=== PATIENT | female | born 1940 | race Caucasian/White ===

== ENCOUNTER 2020-03-19 11:27 | Outpatient (CLI) | payer MEDICARE, SELFPAY ==
--- NOTE | ~2020-03-19 | XR_ITS ---
EXAMINATION: XR chest 2V DATE: 03/19/2020 12:06 INDICATION: Cough. TECHNIQUE: Frontal and lateral views of the chest were obtained. COMPARISON: Chest 2 views 09/27/2018 FINDINGS: There is mild scarring at right lung apex. No pleural effusion or pneumothorax. The heart s ize is normal. There is a chronic compression fracture in mid thoracic spine. IMPRESSION: 1. Mild scarring at right lung apex. Reviewed, dictated and finalized at location B.
== END 2020-03-19 11:28 | disposition home or self-care (01) ==
PROVIDERS: PCP Internal Medicine; Visit Provider Internal Medicine
DX: R05 Cough (principal)
CPT/HCPCS: 71046

== ENCOUNTER 2020-07-26 08:01 | Outpatient (CLI) | payer MEDICARE, SELFPAY ==
--- NOTE | ~2020-07-26 | MM_ITS ---
EXAMINATION: MM screening laura BI w vaughn HISTORY: Screening mammogram TECHNIQUE: Craniocaudal and mediolateral oblique 3-D tomosynthesis images were obtained and synthetic 2-D images were generated. CAD analysis was submitted and interpreted. COMPARISON: 07/24/2019, 07/23/2018, 07/18/2017 bilateral digital screening mammogram examinations BREAST PARENCHYMAL COMPOSITION: There are scattered areas of fibroglandular density. FINDINGS: There is no evidence of suspicious mass, calcification, or architectural distortion to sugg est malignancy in either breast. There has been no suspicious interval change. IMPRESSION: 1. No mammographic evidence of malignancy. 2. Recommend routine screening mammography in one year. BI-RADS Category 1: Negative Reviewed, dictated and finalized at location A. RNATIONAL FREIGHT FORWARDER
== END 2020-07-26 08:02 | disposition home or self-care (01) ==
LOC: ANHIMG 08:05
PROVIDERS: PCP Internal Medicine; Visit Provider Internal Medicine
DX: Z12.31 Encounter for screening mammogram for malignant neoplasm of breast (principal)
CPT/HCPCS: 77063; 77067

== ENCOUNTER 2020-07-28 08:29 | Emergency (ER) | payer MEDICARE, SELFPAY ==
[2020-07-28] VITALS (21 sets, daily range): BP systolic 101–149; BP diastolic 37–84; PULSE 81–99; RESP 12–33; TEMP 36.9; O2SAT 78–100
--- NOTE | ~2020-07-28 | XR_ITS ---
EXAMINATION: XR shoulder RT min 2V EXAM DATE: 07/28/2020 09:14 INDICATION: Initial encounter following injury, with pain of the right shoulder. TECHNIQUE: Frontal, oblique, Y projections of the right shoulder. There is no prior study for vicki garg. FINDINGS: Acute closed posttraumatic comminuted right humeral head/neck fracture, inferior dislocati on of the humeral head neck components from the greater tuberosity component. Posterior angulation to the humeral shaft. Appearance most consistent with three-part right humeral head/neck fracture howev er additional fragmentation could be present. IMPRESSION: Right humeral head/neck comminuted fractures, inferior dislocation. Reviewed, dictated and finalized at location B. HER CASE FINISHER
--- NOTE | ~2020-07-28 | CT_ITS ---
EXAMINATION: CT shoulder RT wo con DATE: 07/28/2020 10:55 INDICATION: Right shoulder injury. TECHNIQUE: Computed tomography (CT) of the right shoulder was performed without intravenous contrast. Automated exposure control and iterative reconstruction technique were employed. The dose-length pro duct was 295.27 mGy-cm. COMPARISON: Right shoulder radiographs 07/28/2020 FINDINGS: There is a comminuted fracture of proximal right humerus. A fracture fragment at the greate r tuberosity demonstrates 6 mm superior displacement and mild valgus rotation. The distal fracture fr agment at the surgical neck demonstrates impaction, 22 degrees posterior angulation, 5 mm medial disp lacement, 4 mm anterior displacement, and 10 degrees lateral angulation. The lesser tuberosity is int act. There is severe osteoarthritis of glenohumeral joint and acromioclavicular joint. There is a lar ge lipohemarthrosis of the glenohumeral joint. There is no asymmetric fatty atrophy of the rotator cu ff muscle bellies. The right lung demonstrates emphysema and mild atelectasis. IMPRESSION: 1. Comminuted three-part fracture of proximal right humerus. No dislocation. 2. Large lipohemarthrosis of the glenohumeral joint. 3. Polyarticular osteoarthritis. 4. Emphysema. Reviewed, dictated and finalized at location A. OL PSYCHOLOGY SPECIALIST
--- NOTE | 2020-07-28 09:00 | ED.UPPEXIN ---
HPI - Extremity Injury (Upper) General Chief Complaint: Extremity Injury, Upper Stated Complaint: FALL/R SHOULDER PAIN Time Seen by Provider: 07/28/20 08:31 Source: patient Mode of arrival: EMS Limitations: no limitations History of Present Illness HPI narrative: Patient tripped and fell while trying to manage a trash can. Complaining of right shoulder pain. Denies other injuries. Patient does not take blood thinner, History of hyperlipidemia. Patient lives alone Related Data Home Medications Medication Instructions Recorded Confirmed vitamin B complex 1 tablet PO DAILY 03/19/20 06/02/20 Allergies Allergy/AdvReac Type Severity Reaction Status Date / Time No Known Allergies Allergy Verified 07/28/20 08:37 Review of Systems Review of Systems: Narrative: CONSTITUTIONAL: Denies fever, chills, or sweats. EYES: Denies visual changes, redness, or discharge. ENT: Denies rhinorrhea, congestion, sore throat, or otalgia. CARDIOVASCULAR: Denies chest pain, palpitations, or edema. RESPIRATORY: Denies cough or dyspnea. GASTROINTESTINAL: Denies abdominal pain, nausea, vomiting, or diarrhea. GENITOURINARY: Denies dysuria or hematuria. SKIN: Denies rash or itching. MUSCULOSKELETAL: Denies back pain, joint pain, or myalgia. NEUROLOGIC: Denies headache, numbness, or weakness. PSYCHIATRIC: Denies anxiety or depression. [facility] Family History Family History Mother Cerebrovascular accident Father Patient's father is Carcinoma of colon Sibling Family history of malignant neoplasm Social History Social History Smoking packs per day: 1 Smoking cigarettes per day: 20.0 Smoking status: Current every day smoker Second hand tobacco smoke exposure: No Smoking end date: 08/06/17 Alcohol intake: never Gender identity (if verbalized by the patient): Female Exam Narrative: Exam Narrative: General appearance: Well-developed, well-nourished Skin: Normal color Head: Normocephalic, nontraumatic Eyes: Clear conjunctiva ENT: Oropharynx normal, ears normal, nose normal Neck: Supple, nontender Chest and respiratory: Airway patent, no respiratory distress, no accessory muscle use Heart: Regular rate/rhythm Abdomen: Soft, nontender, no organomegaly, quiet bowel sounds Vascular: Normal peripheral pulses, normal capillary refill. Musculoskeletal: Right arm showed deformity, severe diffuse pain, severe limited range of motion. Neurologic: Alert and oriented ?3, SAP PI DEVELOPER is normal as tested, no gross motor deficit Course Course Emergency Course: Stable Consultations Consultation #1: DR SPARROW Date: 07/28/20 Time: 13:12 Consultation #2: DR NGUYEN/[facility] orthopedic on-call. Patient need to follow-up with Dr. Diez at [phone] for appointment and the possible shoulder replacement Date: 07/28/20 Time: 13:12 Vital Signs Vital signs: Vital Signs Temperature 36.9 C 07/28/20 08:32 Pulse Rate 94 07/28/20 08:32 Respiratory Rate 20 07/28/20 08:32 Blood Pressure 149/81 H 07/28/20 08:32 Pulse Oximetry 94 07/28/20 08:32 Temperature 36.9 C 07/28/20 08:32 Pulse Rate 91 07/28/20 10:17 Respiratory Rate 33 H 07/28/20 10:17 Blood Pressure 132/72 07/28/20 10:17 Pulse Oximetry 94 07/28/20 10:17 MDM - Extremity Injury (Upper) MDM Narrative Medical decision making narrative: Right shoulder pain status post fall. X-ray right shoulder ordered. Further plan to follow. 4 mg of morphine, 4 mg of Zofran ordered Differential Diagnosis Differential diagnosis: Likely fracture of humerus and fracture of clavicle
[2020-07-28] MEDS: MORPHINE SULFATE (*CRX) 4 MG/ML INJ IV PUSH ×2 (09:03→10:21)
[2020-07-28] MEDS: ONDANSETRON INJ 4 MG/2 ML VIAL IV PUSH (09:03)
== END 2020-07-28 13:30 | disposition home or self-care (01) ==
PROVIDERS: Emergency Provider Emergency Medicine; PCP Internal Medicine
DX: S42.231A 3-part fracture of surgical neck of right humerus, initial encounter for closed fracture (principal); E78.5 Hyperlipidemia, unspecified; Z87.891 Personal history of nicotine dependence; W01.0XXA Fall on same level from slipping, tripping and stumbling without subsequent striking against object, initial encounter
CPT/HCPCS: 73030; 73200; 96374; 96375; 96376; 99284; J2270; J2405

== ENCOUNTER 2020-07-31 11:53 | Emergency (ER) | payer MEDICARE, SELFPAY ==
[2020-07-31 12:03] VITALS: BP 124/68; PULSE 105; RESP 18; TEMP 36.9; O2SAT 93
--- NOTE | 2020-07-31 13:16 | ED.UPPEXIN ---
HPI - Extremity Injury (Upper) General Chief Complaint: Extremity Injury, Upper Stated Complaint: arm fracture Time Seen by Provider: 07/31/20 12:28 History of Present Illness HPI narrative: Seen here for a proximal humerus fracture a few days ago. Placed in shoulder immobilizer and given noroc. She is supposed to follow-up with ortho at [facility] next week. She returns today due ongoing pain. No fever, redness, weakness. Related Data Home Medications Medication Instructions Recorded Confirmed vitamin B complex 1 tablet PO DAILY 03/19/20 06/02/20 Allergies Allergy/AdvReac Type Severity Reaction Status Date / Time No Known Allergies Allergy Verified 07/31/20 12:19 Review of Systems Review of Systems: All systems reviewed & are unremarkable except as noted in HPI and below Constitutional: Constitutional: Denies fever(s) and Denies weakness ENT: Denies dizziness Cardiovascular: Cardiovascular: Denies chest pain Respiratory: Respiratory: Denies dyspnea Gastrointestinal: Gastrointestinal: Denies nausea and Reports vomiting Comments: Poor appetite Musculoskeletal: Musculoskeletal: Denies back pain Neurologic: Denies dizziness PMFSH Past Medical History Medical History Chronic GERD Humerus fracture Family History Family History Mother Cerebrovascular accident Father Patient's father is Carcinoma of colon Sibling Family history of malignant neoplasm Social History Social History Smoking packs per day: 1 Smoking cigarettes per day: 20.0 Smoking status: Current every day smoker Second hand tobacco smoke exposure: No Smoking end date: 08/06/17 Alcohol intake: never Gender identity (if verbalized by the patient): Female Exam Const: General: no acute distress and alert Nutritional Appearance: well nourished Orientation/consciousness: patient oriented x3 HENMT: Head: normal to inspection Neck: Neck: normal visual inspection Resp: Effort & Inspection: normal respiratory effort Auscultation: clear to auscultation bilaterally Cardio: Rate: regular rate Rhythm: regular rhythm Skin: Other: diffuse RUE bruising Neuro: General: patient oriented x3, no focal motor deficits and CN's II-XI intact bilaterally Speech: normal speech Extrem: Other: immobilizer in place Psych: Affect: Anxious affect present Course Vital Signs Vital signs: Vital Signs Temperature 36.9 C 07/31/20 12:03 Pulse Rate 105 H 07/31/20 12:03 Respiratory Rate 18 07/31/20 12:03 Blood Pressure 124/68 07/31/20 12:03 Pulse Oximetry 93 07/31/20 12:03 Temperature 36.9 C 07/31/20 12:03 Pulse Rate 99 07/31/20 15:17 Respiratory Rate 20 07/31/20 15:17 Blood Pressure 126/88 07/31/20 15:17 Pulse Oximetry 99 07/31/20 15:17 MDM - Extremity Injury (Upper) MDM Narrative Medical decision making narrative: Immobilizer repositioned. Abdominal binder placed over the top to provide additional support. I will provide her a small amount of additional pain medication to hold her until ortho follow-up. Medical Records Attestation: I reviewed the patient's medical records. Discharge Plan Discharge Clinical Impression: Fracture of proximal end of humerus Patient Disposition: Home, Self-Care Condition: Stable Instructions: Arm Fracture in Adults (ED) Prescriptions: No Action vitamin B complex [B Complex-Vitamin B12] Tablet 1 tablet PO DAILY RF: 0 simvastatin 20 mg tablet 20 mg PO DAILY Qty: 90 RF: 1 hydrocodone-acetaminophen [[place]] 5-325 mg tablet 1 tablet PO Q6H PRN (Reason: pain) Qty: 15 RF: 0 Follow-up/Referrals: Gustavo Hsieh DO [Primary Care Provider] -
[2020-07-31 15:17] VITALS: BP 126/88; PULSE 99; RESP 20; O2SAT 99
== END 2020-07-31 15:19 | disposition home or self-care (01) ==
PROVIDERS: Emergency Provider Emergency Medicine; PCP Internal Medicine
DX: S42.201A Unspecified fracture of upper end of right humerus, initial encounter for closed fracture (principal); K21.9 Gastro-esophageal reflux disease without esophagitis; F17.210 Nicotine dependence, cigarettes, uncomplicated; X58.XXXA Exposure to other specified factors, initial encounter
CPT/HCPCS: 99283

== ENCOUNTER 2020-10-08 11:17 | Outpatient (CLI) | payer MEDICARE, SELFPAY ==
--- NOTE | ~2020-10-08 | XR_ITS ---
EXAMINATION: XR hip RT min 2V DATE: 10/08/2020 11:47 INDICATION: Right hip pain. TECHNIQUE: 3 views of right hip were obtained. COMPARISON: None. FINDINGS: Bone alignment is normal. No fracture. There is severe right hip osteoarthritis. IMPRESSION: 1. Severe right hip osteoarthritis. Reviewed, dictated and finalized at location A. ATE TUTOR
== END 2020-10-08 11:18 | disposition home or self-care (01) ==
PROVIDERS: PCP Internal Medicine; Visit Provider Internal Medicine
DX: M16.11 Unilateral primary osteoarthritis, right hip (principal)
CPT/HCPCS: 73502

== ENCOUNTER 2020-11-08 15:35 | Outpatient (CLI) | payer MEDICARE, SELFPAY ==
--- NOTE | ~2020-11-08 | XR_ITS ---
EXAMINATION: XR lumbar spine 2-3V DATE: 11/08/2020 15:56 INDICATION: Dorsalgia unspecified, low back pain TECHNIQUE: Anteroposterior and lateral views of the lumbar spine, and cone-down lateral view of the l umbosacral junction were obtained. COMPARISON: 03/30/2014 FINDINGS: There is no fracture, dislocation, or subluxation. The vertebral body heights and alignment are normal. There is mild loss of intervertebral disc space height in the lumbar spine. Mild facet o steoarthritis is noted in the lower lumbar spine. Calcified atherosclerosis is noted. IMPRESSION: 1. Mild lumbar spondylosis without acute findings or significant interval change. Reviewed, dictated and finalized at location A. IMPRESSION: 1. Mild lumbar spondylosis without acute findings or significant interval moon jesse
== END 2020-11-08 15:36 | disposition home or self-care (01) ==
PROVIDERS: PCP Internal Medicine; Visit Provider Internal Medicine
DX: M47.896 Other spondylosis, lumbar region (principal)
CPT/HCPCS: 72100

== ENCOUNTER 2021-01-12 07:35 | Outpatient (CLI) | payer MEDICARE, SELFPAY ==
--- NOTE | ~2021-01-12 | DEXA_ITS ---
Bone Density Report Name: Gia Leggett I Age: 80 Sex: Female Ethnicity: White Date of : 1940 Indication: osteopenia; height loss; prior fracture; Referring Provider: Gustavo Hsieh Study: Bone densitometry was performed. Exam Date: January 12, 2021 Accession number: [id number] Bone Density: Region BMD T-score Z-score Classification AP Spine (L1-L4) 0.801 -2.2 0.5 Osteopenia Femoral Neck (Left) 0.560 -2.6 -0.3 Osteoporosis Total Hip (Left) 0.614 -2.7 -0.6 Osteoporosis Total Hip Bilateral Avg 0.620 -2.6 -0.6 Osteoporosis Femoral Neck (Right) 0.620 -2.1 0.3 Osteopenia Total Hip (Right) 0.624 -2.6 -0.5 Osteoporosis World Health Organization criteria for BMD impression classify patients as: Normal (T-score at or above -1.0), Osteopenia (T-score between -1.0 and -2.5), or Osteoporosis (T-score at or below -2.5). 10-year Fracture Risk: FRAX not reported because: Some T-score for Spine Total or Hip Total or Femoral Neck at or below -2.5 Previous Exams: Region Exam Age BMD T-score BMD Change BMD Change Date g/cm2 vs Baseline vs Previous AP Spine(L1-L4) 01/12/2021 80 0.801 -2.2 0.083(11.6%)# -0.008(-1.0%)# 05/28/2013 72 0.809 -2.2 0.091(12.7%)# 0.052(6.9%)# 11/22/2009 69 0.757 -2.6 0.039(5.4%)* 0.039(5.4%)* 11/20/2007 67 0.718 -3.0 Total Hip(Left) 01/12/2021 80 0.614 -2.7 -0.022(-3.4%)# -0.099(-13.9%) 05/28/2013 72 0.713 -1.9 0.077(12.1%)# 0.099(16.1%)# 11/22/2009 69 0.614 -2.7 -0.022(-3.4%) -0.022(-3.4%) 11/20/2007 67 0.636 -2.5 Total Hip(Right) 01/12/2021 80 0.624 -2.6 0.019(3.1%)# -0.038(-5.7%)# 05/28/2013 72 0.662 -2.3 0.056(9.3%)# 0.075(12.7%)# 11/22/2009 69 0.587 -2.9 -0.018(-3.0%) -0.018(-3.0%) 11/20/2007 67 0.606 -2.8 *Denotes significance at 95% confidence level, LSC for AP Spine = 0.022 g/cm2, LSC for Total Hip = 0.027 g/cm2 Clinical Information Provided by Patient: Has had a low trauma fracture Smokes Has used the following medications: Vitamin D, Calcium Patient maximum height was 65 Menopause Age: 55 No regular weight bearing exercise Does not regularly consume dairy products Drinks caffeinated beverages Onset of menses at age 15 Number of children 3 Impression: The patient has established osteoporosis, based on the Left Total Hip T-score and the existence of a prior fracture. The patient has risk factors, including: smoking, previous fracture. No si
--- NOTE | 2021-01-13 08:46 | WPDPFTINT ---
PFT Procedure Performed PFT Procedure Performed Spirometry with Pre/Post Bronchodilator Plethysmography (Lung Vol) Diffusing Cap (DLCO) PFT Interpretation DOS: 01/12/2021 REQUESTING: Dr. Hsieh REASON FOR TESTING: Dyspnea PULMONARY FUNCTION TESTS Results are not reproducible as the patient could not perform a reliable flow volume loop, and could not exhale for 6 seconds on any attempt. Only one attempt at plethysmography was acceptable. Spirometry: FEV1 is 100%, 1.95 L, normal. FVC is 104%. The FEV1/FVC ratio is 73%, normal. No change after bronchodilator administration. Lung volumes: Total lung capacity is 96%. RV is 80%. RV/TLC is 39%, normal indicating no air trapping. Airway resistance is increased 156%. Diffusion: DLCO is 63%, mildly decreased. Flow volume loop: Irregular and not reproducible. The expiratory limb is normal, so this supports an impression of absence of airflow obstruction. The inspiratory limb is not reproducible at all. IMPRESSION: This study shows lack of reproducibility. There is no evidence of airflow obstruction with normal spirometry, normal lung volumes, and mild decrease in diffusion. Her inability to take a normal breath in and inability to exhale for 6 seconds may suggest an abnormality in the upper airway. Consider chest CT with dynamic images to look for tracheomalacia. Marti Cristobal MD
== END 2021-01-12 07:36 | disposition home or self-care (01) ==
PROVIDERS: PCP Internal Medicine; Visit Provider Internal Medicine
DX: S42.309A Unspecified fracture of shaft of humerus, unspecified arm, initial encounter for closed fracture (principal); X58.XXXA Exposure to other specified factors, initial encounter; Z13.820 Encounter for screening for osteoporosis; M85.88 Other specified disorders of bone density and structure, other site; M81.0 Age-related osteoporosis without current pathological fracture; M85.851 Other specified disorders of bone density and structure, right thigh
CPT/HCPCS: 77080; 94060; 94726; 94729

== ENCOUNTER 2021-02-09 12:43 | Outpatient (CLI) | payer MEDICARE, SELFPAY ==
--- NOTE | ~2021-02-09 | CT_ITS ---
EXAMINATION: CT diagnostic chest wo con DATE: 02/09/2021 13:16 INDICATION: Hair shaft and hair color abnormalities. Smoker. TECHNIQUE: Computed tomography (CT) of the chest was performed without intravenous contrast. The dose -length product was 163.56 mGy-cm. Automated exposure control and iterative reconstruction technique were employed. COMPARISON: CT dated 12/15/2004 FINDINGS: There is moderate atherosclerosis of the thoracic aorta and coronary arteries. 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 Mild mediastinal lymphadenopathy. Precarinal lymph node measures 1 cm short axis. No s ignificant pleural or pericardial effusion. There are a few scattered calcified granulomas of the harleen g parenchyma. There is moderate emphysema. There is 2 mm right upper lobe nodule which is not clearly calcified. No focal airspace disease. No pneumothorax. No endobronchial lesions. There is a T7 super ior endplate compression fracture, likely chronic. IMPRESSION: 1. 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 2: Mild mediastinal lymphadenopathy, likely reactive. 3: Emphysema. 4: Moderate diffuse atherosclerosis and ectasia of the thoracic aorta. Reviewed, dictated and finalized at location A.
== END 2021-02-09 12:44 | disposition home or self-care (01) ==
PROVIDERS: PCP Internal Medicine; Visit Provider Internal Medicine
DX: L67.8 Other hair color and hair shaft abnormalities (principal); J43.9 Emphysema, unspecified; I70.0 Atherosclerosis of aorta
CPT/HCPCS: 71250

== ENCOUNTER 2021-04-07 13:31 | Outpatient (CLI) | payer MEDICARE, SELFPAY | END 2021-04-07 13:32 | disposition home or self-care (01) | LOC: ANHAUDIO 13:33 | PROVIDERS: PCP Internal Medicine; Visit Provider Otolaryngology | DX: H91.93 Unspecified hearing loss, bilateral (principal); H93.13 Tinnitus, bilateral | CPT/HCPCS: 92557; 92567 ==

== ENCOUNTER 2021-07-05 09:37 | Outpatient (CLI) | payer MEDICARE, SELFPAY ==
--- NOTE | ~2021-07-05 | CT_ITS ---
EXAMINATION: CT lung screening DATE: 07/05/2021 09:58 INDICATION: Current smoker. Cough. TECHNIQUE: Computed tomography (CT) of the chest was performed without intravenous contrast. The dose -length product was 80.53 mGy-cm. Automated exposure control and iterative reconstruction technique w ere employed. COMPARISON: CT dated 02/09/2021 FINDINGS: Heart size normal. There is atherosclerosis and ectasia of the thoracic aorta. There is foc al saccular aneurysm of the suprarenal abdominal aorta measuring 5.1 cm. No significant pleural or pe ricardial effusion. There is coronary atherosclerosis. No mediastinal lymphadenopathy. There is emphy sema. There are a few calcified granulomas of the lung parenchyma. There is 2 mm nodule in the left u pper lobe, coronal image 44. No focal airspace disease. No pneumothorax. No endobronchial lesions. St able chronic superior endplate compression fracture of T7. IMPRESSION: 1. Lung-RADS category 2: Benign appearance or behavior. Continue annual screening with noncontrast lo w-dose chest CT in 12 months. 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 Reviewed, dictated and finalized at location B. UCE BUYER IMPRESSION: 1. Lung-RADS category 2: Benign appearance or behavior. Continue annual screeni ng with noncontrast low-dose chest CT in 12 months. 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
== END 2021-07-05 09:38 | disposition home or self-care (01) ==
PROVIDERS: PCP Internal Medicine; Visit Provider Internal Medicine
DX: Z12.2 Encounter for screening for malignant neoplasm of respiratory organs (principal); Z87.891 Personal history of nicotine dependence; I70.1 Atherosclerosis of renal artery
CPT/HCPCS: 71271

== ENCOUNTER 2021-07-28 07:56 | Outpatient (CLI) | payer MEDICARE, SELFPAY ==
--- NOTE | ~2021-07-28 | MM_ITS ---
EXAMINATION: MM screening [facility] BI w vaughn HISTORY: Screening mammogram TECHNIQUE: Craniocaudal and mediolateral oblique 3-D tomosynthesis images were obtained and synthetic 2-D images were generated. CAD analysis was submitted and interpreted. COMPARISON: 07/26/2020, 07/24/2019, 07/23/2018 BREAST PARENCHYMAL COMPOSITION: There are scattered areas of fibroglandular density. FINDINGS: There is no evidence of suspicious mass, calcification, or architectural distortion to sugg est malignancy in either breast. There has been no suspicious interval change. IMPRESSION: 1. No mammographic evidence of malignancy. 2. Recommend routine screening mammography while the patient remains in good health. BI-RADS Category 1: Negative Reviewed, dictated and finalized at location A. L ENGINE TRAINER IMPRESSION: 1. No mammographic evidence of malignancy. 2. Recommend routine screening mammography while the patient remains in good he alth. BI-RADS Category 1: Negative
== END 2021-07-28 07:57 | disposition home or self-care (01) ==
LOC: ANHIMG 07:58
PROVIDERS: PCP Internal Medicine; Visit Provider Internal Medicine
DX: Z12.31 Encounter for screening mammogram for malignant neoplasm of breast (principal)
CPT/HCPCS: 77063; 77067

== ENCOUNTER 2022-09-20 08:09 | Outpatient (CLI) | payer MEDICARE, SELFPAY ==
--- NOTE | ~2022-09-20 | MM_ITS ---
EXAMINATION: MM screening laura BI w vaughn HISTORY: Screening mammogram TECHNIQUE: Craniocaudal and mediolateral oblique 3-D tomosynthesis images were obtained and synthetic 2-D images were generated. CAD analysis was submitted and interpreted. COMPARISON: 07/28/2021, 07/26/2020, 07/24/2019 bilateral screening mammogram examinations BREAST PARENCHYMAL COMPOSITION: FINDINGS: There is no evidence of suspicious mass, calcification, or architectural distortion to sugg est malignancy in either breast. There has been no suspicious interval change. IMPRESSION: 1. No mammographic evidence of malignancy. 2. Recommend routine screening mammography in one year. BI-RADS Category 1: Negative Reviewed, dictated and finalized at location A. EY MECHANIC
== END 2022-09-20 08:10 | disposition home or self-care (01) ==
LOC: ANHIMG 08:10
PROVIDERS: PCP Internal Medicine; Visit Provider Internal Medicine
DX: Z12.31 Encounter for screening mammogram for malignant neoplasm of breast (principal)
CPT/HCPCS: 77063; 77067

== ENCOUNTER 2022-12-15 07:57 | Outpatient (CLI) | payer MEDICARE, SELFPAY ==
[2022-12-15 08:12] LABS: Basophils Absolute Auto 0.1 K/mm3 (0.0-0.1); Basophils Percent Auto 1.1 % (0.2-1.2); Eosinophils Absolute Auto 0.3 K/mm3 (0-0.3); Eosinophils Percent Auto 2.6 % (0-4.4); Hematocrit 42.5 % (37.0-47.0); Immature Granulocyte Absolute 0.04 K/mm3 (0.00-0.031); Immature Granulocyte Percent A 0.4 % (0-0.5); Lymphocytes Percent Auto 28.7 % (18.3-44.2); Mean Corpuscular HGB Conc 32.9 g/dl (32-36); Mean Corpuscular Hemoglobin 31.4 pg (26-34); Mean Corpuscular Volume 95.3 fl (80-100); Mean Platelet Volume 10.3 fl (7.4-10.4); Monocytes Absolute Auto 0.8 K/mm3 (0.1-0.6); Monocytes Percent Auto 7.8 % (2.6-8.5); Neutrophils Absolute Auto 6.4 K/mm3 (1.3-6.7); Neutrophils Percent Auto 59.4 % (45.5-73.1); Platelet Count Result 254 k/mm3 (150-375); Red Blood Count 4.46 M/mm3 (4.2-5.4); Red Cell Distribution Width 13.2 % (11.5-14.5); White Blood Count 10.8 K/mm3 (4.5-10.0)
[2022-12-15 08:36] LABS: Alanine Aminotransferase 13 U/L (6-35); Albumin Level 4.4 g/dL (3.5-5.1); Alkaline Phosphatase 74 U/L (38-126); Anion Gap 5 mmol/L (8-16); Aspartate Amino Transferase 20 U/L (14-36); Bilirubin,Total 0.9 mg/dL (0.2-1.3); Blood Urea Nitrogen 15 mg/dL (7-17); Calcium 9.9 mg/dL (8.4-10.2); Carbon Dioxide 29 mmol/L (22-30); Chloride 107 mmol/L (98-107); Cholesterol 172 mg/dL (0-200); Estimated Glomerular Filt Rate 53; Glucose 103 mg/dL (65-110); HDL Direct 51 mg/dL; Potassium 4.7 mmol/L (3.4-5.0); Sodium 141 mmol/L (137-145); Triglycerides 144 mg/dL (<150)
[2022-12-15 08:47] LABS: LDL Cholesterol Direct 96 mg/dL
[2022-12-15 09:41] LABS: Folic Acid 8.6 ng/mL (2.76->20)
== END 2022-12-15 07:58 | disposition home or self-care (01) ==
PROVIDERS: PCP Internal Medicine; Visit Provider Internal Medicine
DX: E78.5 Hyperlipidemia, unspecified (principal); R53.83 Other fatigue
CPT/HCPCS: 36415; 80053; 80061; 82607; 82746; 84443; 85025

== ENCOUNTER 2023-05-11 15:13 | Emergency (ER) | payer MEDICARE, SELFPAY ==
--- NOTE | 2023-05-11 15:14 | ED.FEMALEGU ---
HPI - Female Genitourinary General Chief complaint: Urogenital-Female Stated complaint: UTI Time Seen by Provider: 05/11/23 15:14 Source: patient Mode of arrival: ambulatory Limitations: no limitations History of Present Illness HPI Narrative: Patient is an 82-year-old female who presents with 3 weeks of urinary urgency and frequency. Patient states are the symptoms have been intermittent. Reports last night frequency and urgency increased her significantly. Denies any burning with urination, pelvic pain, low back pain, fever, chills, nausea, vomiting, diarrhea. Denies any blood in urine. MD elicited complaint: dysuria Related Data Home Medications Medication Instructions Recorded Confirmed ascorbate calcium (vitamin C) 500 500 mg PO DAILY 06/27/22 05/11/23 mg tablet Allergies Allergy/AdvReac Type Severity Reaction Status Date / Time No Known Allergies Allergy Verified 05/11/23 15:43 Review of Systems Review of Systems: All systems reviewed & are unremarkable except as noted in HPI and below Constitutional: Constitutional: Denies chills, Denies fever(s), Denies headache(s), Denies malaise and Denies weakness Eyes: Eyes: Denies change in vision, Denies eye discharge and Denies irritation ENT: Denies otalgia, Denies headache(s), Denies nasal congestion, Denies nasal discharge, Denies sinus pain and Denies sore throat Cardiovascular: Cardiovascular: Denies chest pain, Denies edema, Denies palpitations and Denies dyspnea Respiratory: Respiratory: Denies cough and Denies dyspnea Gastrointestinal: Gastrointestinal: Denies abdominal pain, Denies diarrhea, Denies nausea and Denies vomiting Genitourinary: Genitourinary: Denies hematuria, Reports nocturia, Denies dysuria, Denies flank pain and Reports urinary urgency Musculoskeletal: Musculoskeletal: Denies back pain and Denies numbness Integumentary/Breasts: Skin/Breast: Denies pruritus and Denies rash Neurologic: Denies headache(s), Denies numbness and Denies weakness Psychiatric: Psychiatric: Reports no additional psychiatric complaints Endocrine: Endocrine: Denies palpitations PMFSH Past Medical History Medical History Chronic GERD Humerus fracture Family History Family History Mother Cerebrovascular accident Father Patient's father is Carcinoma of colon Sibling Family history of malignant neoplasm Social History Social History Smoking packs per day: 1 Smoking cigarettes per day: 20.0 Smoking status: Current every day smoker Second hand tobacco smoke exposure: No Smoking end date: 08/06/17 Alcohol intake: never Lack of Transportation: No Lack of Food: Never True Current Housing: I Have Housing Concerned About Future Housing: No Difficulty Paying Gas/Electric Bills: No Difficulty Paying for Meds: No Currently Unemployed: No Education: High School Diploma/GED Difficulty w/ Childcare or Family Care: No Gender identity (if verbalized by the patient): Female Comments At time of signature, agree with nursing past medical, surgical, social and family history. There is no relevant family history pertinent to the presenting complaint. Exam Const: General: cooperative, healthy appearing, comfortable, no acute distress and well nourished Nutritional Appearance: well nourished Orientation/consciousness: patient oriented x3 HENMT: Head: normocephalic and atraumatic Ears: external ears normal Face/Nose/Sinus: Normal external nose present, Normal nares present and normal facial exam Face and sinus: normal facial exam Eyes: General: appearance normal, both eyes and all related structures Pupils: Equal, round and reactive pupils present EOM: EOMs intact bilaterally Neck: Neck: normal visual inspection, full ROM and supple Chest: Chest pa
[2023-05-11 15:42] VITALS: BP 137/63; PULSE 79; RESP 16; TEMP 36.8; O2SAT 97
[2023-05-11 15:44] VITALS: BP 137/63; PULSE 79; RESP 16; TEMP 36.8; O2SAT 97
== END 2023-05-11 16:12 | disposition home or self-care (01) ==
PROVIDERS: Emergency Provider Nurse Practitioner Family; PCP Internal Medicine
DX: N39.0 Urinary tract infection, site not specified (principal); F17.210 Nicotine dependence, cigarettes, uncomplicated
CPT/HCPCS: 81003; 87077; 87086; 87186; 99213; G0463

== ENCOUNTER 2023-08-17 16:40 | Emergency (ER) | payer MEDICARE, SELFPAY ==
[2023-08-17 17:08] VITALS: BP 107/90; PULSE 85; RESP 18; TEMP 36.6; O2SAT 97
--- NOTE | 2023-08-17 19:57 | ED.GENADULT ---
HPI - General Adult General Chief complaint: Unspecified Stated complaint: post op trouble swallowing ([facility] 07/27) Time Seen by Provider: 08/17/23 19:28 History of Present Illness HPI narrative: patient is an 83-year-old female presenting with poor p.o. intake. Patient's daughters at bedside and helps with the history. Patient had an aortic aneurysm repair [facility] approximately 3-4 weeks ago. States that she has been doing well in regards to this but she has been having difficulty eating due to no appetite. States that she had minimal appetite before the surgery but it has only worsened. Her daughter states that the only thing that she will really consume it is boost drinks. Patient states that she has to force herself to eat even a bite of food and then stops because she simply does not want it. She denies difficulty or pain with swallowing. Complains of intermittent nausea but no vomiting. No abdominal pain. No chest pain or shortness of breath. No further complaints. Related Data Home Medications Medication Instructions Recorded Confirmed ascorbate calcium (vitamin C) 500 500 mg PO DAILY 06/27/22 05/23/23 mg tablet Allergies Allergy/AdvReac Type Severity Reaction Status Date / Time No Known Allergies Allergy Verified 05/21/23 10:15 Review of Systems Review of Systems: All systems reviewed & are unremarkable except as noted in HPI and below PMFSH Past Medical History Medical History Chronic GERD Humerus fracture Family History Family History Mother Cerebrovascular accident Father Patient's father is Carcinoma of colon Sibling Family history of malignant neoplasm Social History Social History Smoking packs per day: 1 Smoking cigarettes per day: 20.0 Smoking status: Current every day smoker Second hand tobacco smoke exposure: No Smoking end date: 08/06/17 Alcohol intake: never Lack of Transportation: No Lack of Food: Never True Current Housing: I Have Housing Concerned About Future Housing: No Difficulty Paying Gas/Electric Bills: No Difficulty Paying for Meds: No Currently Unemployed: No Education: High School Diploma/GED Difficulty w/ Childcare or Family Care: No Gender identity (if verbalized by the patient): Female Exam Narrative: GENERAL: Nontoxic, no acute distress, pleasant cooperative HEAD: Normocephalic, atraumatic. EYES: PERRLA and EOMI. ENT: Mucous membranes tacky NECK: Supple. CHEST: Clear to auscultation. No respiratory distress. HEART: Regular rate and rhythm. Normal peripheral pulses. ABDOMEN: Soft, nontender, nondistended, large left sided incision extending past umbilicus, neil still in place, no dehiscence, no drainage, no surrounding erythema EXTREMITIES: No edema. SKIN: Warm, dry, as above NEURO: Alert and oriented x3. PSYCH: Normal mood and affect. Course Vital Signs Vital signs: Vital Signs Temperature 97.9 F 08/17/23 17:08 Pulse Rate 85 08/17/23 17:08 Respiratory Rate 18 08/17/23 17:08 Blood Pressure 107/90 08/17/23 17:08 Pulse Oximetry 97 08/17/23 17:08 Oxygen Delivery Room Air 08/17/23 17:08 Temperature 97.9 F 08/17/23 17:08 Pulse Rate 88 08/17/23 22:28 Respiratory Rate 15 08/17/23 22:28 Blood Pressure 140/84 08/17/23 22:28 Pulse Oximetry 100 08/17/23 22:28 Oxygen Delivery Room Air 08/17/23 17:08 Medical Decision Making [facility] Narrative Medical decision making narrative: 83-year-old female presenting with lack of appetite. Vitals are stable. Exam remarkable for the above. Blood work with mild leukocytosis. Hemoglobin is 9.6, down from prior value but the patient did just have a AAA repair last month. Lipase is within normal limits. UA is concerning for infection. Nahun
[2023-08-17] MEDS: SODIUM CHLORIDE 0.9% IV 1,000 ML 999 ML IV CONT (20:14)
[2023-08-17 20:22] LABS: Basophils Absolute Auto 0.2 K/mm3 (0.0-0.1); Basophils Percent Auto 1.6 % (0.2-1.2); Eosinophils Absolute Auto 0.5 K/mm3 (0-0.3); Eosinophils Percent Auto 4.6 % (0-4.4); Hematocrit 31.8 % (37.0-47.0); Hemoglobin 9.6 g/dL (12.0-15.0); Immature Granulocyte Absolute 0.05 K/mm3 (0.00-0.031); Immature Granulocyte Percent A 0.4 % (0-0.5); Lymphocytes Absolute Auto 2.48 K/mm3 (0.9-3.2); Lymphocytes Percent Auto 21.9 % (18.3-44.2); Mean Corpuscular HGB Conc 30.2 g/dl (32-36); Mean Corpuscular Volume 102.6 fl (80-100); Mean Platelet Volume 9.7 fl (7.4-10.4); Monocytes Absolute Auto 1.6 K/mm3 (0.1-0.6); Monocytes Percent Auto 14.1 % (2.6-8.5); Neutrophils Absolute Auto 6.5 K/mm3 (1.3-6.7); Neutrophils Percent Auto 57.4 % (45.5-73.1); Nucleated Red Blood Cells Perc 0.2 % (0.0-0.2); Platelet Count Result 457 k/mm3 (150-375); Red Cell Distribution Width 14.6 % (11.5-14.5); White Blood Count 11.3 K/mm3 (4.5-10.0)
[2023-08-17 21:09] LABS: Alanine Aminotransferase 16 U/L (6-35); Albumin Level 3.7 g/dL (3.5-5.1); Alkaline Phosphatase 72 U/L (38-126); Anion Gap 7 mmol/L (8-16); Aspartate Amino Transferase 25 U/L (14-36); Bilirubin,Total 0.5 mg/dL (0.2-1.3); Blood Urea Nitrogen 18 mg/dL (7-17); Calcium 10.3 mg/dL (8.4-10.2); Carbon Dioxide 32 mmol/L (22-30); Chloride 98 mmol/L (98-107); Estimated CRCL calculation 39 ml/min; Estimated Glomerular Filt Rate 60; Glucose 125 mg/dL (65-110); Lipase 70 U/L (23-300); Sodium 137 mmol/L (137-145)
[2023-08-17 21:12] VITALS: BP 146/86; PULSE 88; RESP 15; O2SAT 100
[2023-08-17 21:51] LABS: Add Urine Microscopic? YES; Appearance Urine Turbid (Clear); Bacteria Urine 4+ /hpf; Bilirubin Urine Negative (Negative); Blood Urine Negative (Negative); Color Urine Yellow (Yellow); Glucose Urine UA Negative (Negative); Hyaline Casts Urine Present /lpf; Ketones Urine Trace mg/dL (Negative); Leukocyte Esterase Ur 3+ LEU/UL (Negative); Nitrate Urine Negative (Negative); Protein Urine Trace mg/dL (Negative); RBC Urine 0-2 /hpf (0-2); Specific Grav Ur 1.016 (1.001-1.035); Squamous Epithelial Cell Urine Many /hpf (Few); WBC Urine >100 /hpf
[2023-08-17] MEDS: cefTRIAXone 2 GM/NS 100 ML 2 GM/100 ML BAG IVPB (22:00)
[2023-08-17 22:28] VITALS: BP 140/84; PULSE 88; RESP 15; O2SAT 100
== END 2023-08-17 22:29 | disposition home or self-care (01) ==
PROVIDERS: Emergency Provider Emergency Medicine; PCP Internal Medicine
DX: N39.0 Urinary tract infection, site not specified (principal); E86.0 Dehydration; R63.0 Anorexia; Z68.20 Body mass index [BMI] 20.0-20.9, adult; F17.210 Nicotine dependence, cigarettes, uncomplicated
CPT/HCPCS: 36415; 80053; 81001; 83690; 85025; 87086; 87088; 96361; 96365; 99284; J0696; J7030

== ENCOUNTER 2023-10-03 10:55 | Outpatient (CLI) | payer MEDICARE, SELFPAY ==
[2023-10-03 11:42] LABS: Basophils Absolute Auto 0.2 K/mm3 (0.0-0.1); Basophils Percent Auto 1.7 % (0.2-1.2); Eosinophils Absolute Auto 0.4 K/mm3 (0-0.3); Eosinophils Percent Auto 4.4 % (0-4.4); Hematocrit 38.3 % (37.0-47.0); Hemoglobin 11.7 g/dL (12.0-15.0); Immature Granulocyte Absolute 0.03 K/mm3 (0.00-0.031); Immature Granulocyte Percent A 0.3 % (0-0.5); Lymphocytes Absolute Auto 3.08 K/mm3 (0.9-3.2); Lymphocytes Percent Auto 33.2 % (18.3-44.2); Mean Corpuscular HGB Conc 30.5 g/dl (32-36); Mean Corpuscular Hemoglobin 29.7 pg (26-34); Mean Corpuscular Volume 97.2 fl (80-100); Mean Platelet Volume 10.7 fl (7.4-10.4); Monocytes Absolute Auto 1.3 K/mm3 (0.1-0.6); Monocytes Percent Auto 13.5 % (2.6-8.5); Neutrophils Absolute Auto 4.4 K/mm3 (1.3-6.7); Neutrophils Percent Auto 46.9 % (45.5-73.1); Platelet Count Result 401 k/mm3 (150-375); Red Blood Count 3.94 M/mm3 (4.2-5.4); Red Cell Distribution Width 14.5 % (11.5-14.5); White Blood Count 9.3 K/mm3 (4.5-10.0)
[2023-10-03 11:53] LABS: Alanine Aminotransferase 13 U/L (6-35); Albumin Level 4.2 g/dL (3.5-5.1); Alkaline Phosphatase 68 U/L (38-126); Anion Gap 7 mmol/L (8-16); Aspartate Amino Transferase 22 U/L (14-36); Bilirubin,Total 0.5 mg/dL (0.2-1.3); Blood Urea Nitrogen 17 mg/dL (7-17); Calcium 10.4 mg/dL (8.4-10.2); Carbon Dioxide 24 mmol/L (22-30); Chloride 109 mmol/L (98-107); Estimated Glomerular Filt Rate 53; Glucose 112 mg/dL (65-110); Potassium 3.7 mmol/L (3.4-5.0); Sodium 140 mmol/L (137-145)
== END 2023-10-03 10:56 | disposition home or self-care (01) ==
PROVIDERS: PCP Internal Medicine; Visit Provider Internal Medicine
DX: D64.9 Anemia, unspecified (principal); R63.0 Anorexia; R63.4 Abnormal weight loss
CPT/HCPCS: 36415; 80053; 85025

== ENCOUNTER 2023-10-25 10:31 | Emergency (ER) | payer MEDICARE, SELFPAY ==
--- NOTE | ~2023-10-25 | XR_ITS ---
EXAMINATION: XR abdomen/kub 1V DATE: 10/25/2023 13:14 INDICATION: Constipation post recent aneurysm surgery TECHNIQUE: A supine view of the abdomen on 2 radiographs was obtained. COMPARISON: 12/30/2004 FINDINGS: Moderate amount of stool scattered throughout the colon with 6.8 cm ball of stool at the rectum which would be consistent with provided history of constipation. No dilated gas-filled bowel to suggest ob struction. Postoperative air is a thoracic aortic endoluminal stent graft. Additional smaller caliber vascular stent projecting along the left side of the upper abdominal aorta along with a few surgical clips. Lung bases are clear. No pleural effusion. IMPRESSION: 1. Moderate amount of colonic stool with 6.8 cm bulge with rectum consistent with provided history of constipation. Reviewed, dictated and finalized at location A. IMPRESSION: 1. Moderate amount of colonic stool with 6.8 cm bulge with rectum consistent wi th provided history of constipation.
[2023-10-25 10:47] VITALS: BP 120/57; PULSE 92; TEMP 36.4; O2SAT 99
[2023-10-25 13:02] VITALS: BP 110/59; O2SAT 97
[2023-10-25 13:16] VITALS: BP 100/85; O2SAT 99
[2023-10-25 13:31] VITALS: BP 117/58; O2SAT 97
--- NOTE | 2023-10-25 14:30 | ED.GENADULT ---
HPI - General Adult General Chief complaint: Abdominal Pain Stated complaint: ?GALLBLADDER Time Seen by Provider: 10/25/23 12:42 History of Present Illness HPI narrative: This patient is an 83-year-old female who presents ER with lower abdominal cramping and rectal discomfort. She has been having trouble passing a bowel movement. She is concerned that it is a gallbladder issue but she has no upper abdominal pain. No pain with eating or drinking. No fevers or chills or sweats. She is without nausea or vomiting. Related Data Home Medications Medication Instructions Recorded Confirmed ascorbate calcium (vitamin C) 500 500 mg PO DAILY 06/27/22 10/03/23 mg tablet Allergies Allergy/AdvReac Type Severity Reaction Status Date / Time No Known Allergies Allergy Verified 10/03/23 08:25 Review of Systems Review of Systems: All systems reviewed & are unremarkable except as noted in HPI and below Constitutional: Constitutional: Reports no additional constitutional complaints ENT: Reports system reviewed and no additional complaints, except as documented Cardiovascular: Cardiovascular: Reports no additional cardiovascular complaints Respiratory: Respiratory: Reports no additional respiratory complaints Gastrointestinal: Gastrointestinal: Denies abdominal pain, Reports constipation, Reports diarrhea ( Leaking from rectum), Denies nausea and Denies vomiting Genitourinary: Genitourinary: Reports no additional female genitourinary complaints [facility] Past Medical History Medical History Chronic GERD Humerus fracture Family History Family History Mother Cerebrovascular accident Father Patient's father is Carcinoma of colon Sibling Family history of malignant neoplasm Social History Social History Smoking packs per day: 1 Smoking cigarettes per day: 20.0 Smoking status: Current every day smoker Second hand tobacco smoke exposure: No Smoking end date: 08/06/17 Alcohol intake: never Lack of Transportation: No Lack of Food: Never True Current Housing: I Have Housing Concerned About Future Housing: No Difficulty Paying Gas/Electric Bills: No Difficulty Paying for Meds: No Currently Unemployed: No Education: High School Diploma/GED Difficulty w/ Childcare or Family Care: No Gender identity (if verbalized by the patient): Female Exam Narrative: GENERAL: Well-appearing, well-nourished, and in no acute distress. HEAD: Normocephalic, atraumatic. ENT: Mucous membranes moist. CHEST: Clear to auscultation. No respiratory distress. HEART: Regular rate and rhythm. Normal peripheral pulses. ABDOMEN: Soft, nontender, nondistended. large burden stool on digital rectal exam. EXTREMITIES: Normal range of motion. No edema. SKIN: Warm, dry, no rash. NEURO: Alert and oriented x3. PSYCH: Normal mood and affect. Course Course Emergency Course: Patient passed large volume stool after Fleet's enema. Discharge home. Vital Signs Vital signs: Vital Signs Temperature 97.6 F 10/25/23 10:47 Pulse Rate 92 10/25/23 10:47 Blood Pressure 120/57 L 10/25/23 10:47 Pulse Oximetry 99 10/25/23 10:47 Temperature 97.6 F 10/25/23 10:47 Pulse Rate 92 10/25/23 10:47 Blood Pressure 117/58 L 10/25/23 13:31 Pulse Oximetry 97 10/25/23 13:31 Medical Decision Making Vital Signs Vital Signs: Vital Signs Temperature 97.6 F 10/25/23 10:47 Pulse Rate 92 10/25/23 10:47 Blood Pressure 120/57 L 10/25/23 10:47 Pulse Oximetry 99 10/25/23 10:47 Temperature 97.6 F 10/25/23 10:47 Pulse Rate 92 10/25/23 10:47 Blood Pressure 117/58 L 10/25/23 13:31 Pulse Oximetry 97 10/25/23 13:31 Imaging Data Radiologist's impression: ITS Impressions Abdomen X-Ray 10/25/23 1
[2023-10-25 15:21] VITALS: BP 127/73; PULSE 71; RESP 15; TEMP 36.8; O2SAT 99
== END 2023-10-25 15:23 | disposition home or self-care (01) ==
PROVIDERS: Emergency Provider Emergency Medicine; PCP Internal Medicine
DX: K59.00 Constipation, unspecified (principal); K21.9 Gastro-esophageal reflux disease without esophagitis; Z87.891 Personal history of nicotine dependence
CPT/HCPCS: 74018; 99283

== ENCOUNTER 2023-11-13 01:10 | Day surgery (SDC) | payer MEDICARE, SELFPAY ==
[2023-10-30 09:03] VITALS: BMI 19.5
[2023-11-08 12:28] VITALS: BMI 19.5
--- NOTE | 2023-11-09 10:04 | SUR.PREOP ---
Patient called regarding upcoming procedure. Reviewed preop instructions, appointment times, and procedure prep.
--- NOTE | 2023-11-09 13:54 | PC.NURSE ---
Spoke with DAUGHTER BUNNY_ regarding medication __PLAVIX . Pt. verbalizes understanding that the last dose of _PLAVIX_ is to be taken on _11/08/2023__ and the Endoscopist will instruct them when to restart after the procedure.
[2023-11-13 11:10] VITALS: BP 155/63; PULSE 87; RESP 16; TEMP 36.3; O2SAT 99
[2023-11-13] MEDS: LACTATED RINGERS 1,000 ML 150 ML IV CONT (11:21)
--- NOTE | 2023-11-13 11:52 | WPDANESEPPF ---
Anes - Initial Pre Proc Eval Procedure: Operation Date: 11/13/23 12:30 Proposed Procedures p Esophagogastroduodenoscopy - Delvis Mcfadden MD Date/Time: 11/13/23 11:52 Surgeon: Delvis Mcfadden MD Pre Op Diagnosis: ulcer of esophagus w/o bleeding Patient Data Age: 83 Gender: F Height: 1.63 m Weight: 50.8 kg Last Vital Signs Temp 97.4 F L 11/13/23 11:10 Pulse 87 11/13/23 11:10 Resp 16 11/13/23 11:10 BP 155/63 H 11/13/23 11:10 Pulse Ox 99 11/13/23 11:10 O2 Del Method Room Air 11/13/23 11:10 Allergies Allergy/AdvReac Type Severity Reaction Status Date / Time No Known Allergies Allergy Verified 11/13/23 11:10 Home Medications Medication Instructions Recorded Confirmed Type ascorbate calcium (vitamin C) 500 500 mg PO DAILY 06/27/22 10/30/23 History mg tablet alendronate 70 mg tablet 70 mg PO WEEKLY #13 tabs 02/19/23 10/30/23 Rx sulfamethoxazole 800 1 tablet PO Q12H 7 days #14 tabs 05/11/23 10/30/23 Rx mg-trimethoprim 160 mg tablet meclizine 12.5 mg tablet 12.5 mg PO TID PRN dizziness #30 09/12/23 10/30/23 Rx tabs clopidogrel 75 mg tablet 75 mg PO DAILY #90 tabs 09/14/23 11/13/23 Rx pantoprazole 40 mg tablet,delayed 40 mg PO QAM #90 tabs 09/14/23 11/08/23 Rx release megestrol 40 mg tablet 40 mg PO TID #90 tabs 10/03/23 10/30/23 Rx simvastatin 20 mg tablet 20 mg PO DAILY #90 tabs 10/08/23 10/30/23 Rx docusate sodium 100 mg capsule 100 mg PO DAILY #7 caps 10/25/23 10/30/23 Rx (Colace) tramadol 50 mg tablet 50 mg PO DAILY 10/30/23 10/30/23 History Patient hx anesthesia problems: none Family hx anesthesia problems: none Results Review: All pre-operative results and documents have been reviewed as part of the pre-operative evaluation. PMFSH Past Medical History Medical History Chronic GERD Humerus fracture Family History Family History Mother Cerebrovascular accident Father Patient's father is Carcinoma of colon Sibling Family history of malignant neoplasm Social History Social History Smoking packs per day: 1 Smoking cigarettes per day: 20.0 Years smoked: 65 Smoking pack-years: 65.00 Smoking status: Former smoker Tobacco type: cigarettes Second hand tobacco smoke exposure: No Smoking end date: 08/06/17 Alcohol intake: former Substance use: never Substance use type: does not use Lack of Transportation: No Lack of Food: Never True Current Housing: I Have Housing Concerned About Future Housing: No Difficulty Paying Gas/Electric Bills: No Difficulty Paying for Meds: No Currently Unemployed: No Education: High School Diploma/GED Difficulty w/ Childcare or Family Care: No Living arrangements: with family Gender identity (if verbalized by the patient): Female Spiritual care concerns: No Anes - Eval Final PreProcedure Day of Procedure 11/13/23 11:52 Patient weight: normal Heart: regular rate and rhythm Lungs: clear to auscultation Airway: Mallampati scale class II Neurological: alert and oriented Last oral intake: >/= 8 hours ASA classification: III Emergent: no Anesthetic plan: proceed Anesthesia type and monitoring: general GIVS and standard monitoring Results Review: All pre-operative results and documents have been reviewed as part of the pre-operative evaluation. Informed Consent: The patient's anesthetic plan and its attendant risks and benefits were discussed with the patient/family/POA. Questions were solicited and answers provided to the satisfaction of the patient/family/POA.
--- NOTE | 2023-11-13 12:37 | PM.HPGS ---
History of Present Illness History of Present Illness Consent: Risks, benefits, and alternatives have been discussed and questions answered. Patient agrees to proceed with procedure. 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 Also found to have a non bleeding esophageal ulcer on EGD, doing ok now Review of Systems Review of Systems: All systems reviewed & are unremarkable except as noted in HPI and below PMFSH Past Medical History Medical History Chronic GERD Humerus fracture Family History Family History Mother Cerebrovascular accident Father Patient's father is Carcinoma of colon Sibling Family history of malignant neoplasm Social History Social History Smoking packs per day: 1 Smoking cigarettes per day: 20.0 Years smoked: 65 Smoking pack-years: 65.00 Smoking status: Former smoker Tobacco type: cigarettes Second hand tobacco smoke exposure: No Smoking end date: 08/06/17 Alcohol intake: former Substance use: never Substance use type: does not use Lack of Transportation: No Lack of Food: Never True Current Housing: I Have Housing Concerned About Future Housing: No Difficulty Paying Gas/Electric Bills: No Difficulty Paying for Meds: No Currently Unemployed: No Education: High School Diploma/GED Difficulty w/ Childcare or Family Care: No Living arrangements: with family Gender identity (if verbalized by the patient): Female Spiritual care concerns: No Meds Home Medications and Allergies Home Medications Medication Instructions Recorded Confirmed Type ascorbate calcium (vitamin C) 500 500 mg PO DAILY 06/27/22 10/30/23 History mg tablet alendronate 70 mg tablet 70 mg PO WEEKLY #13 tabs 02/19/23 10/30/23 Rx sulfamethoxazole 800 1 tablet PO Q12H 7 days #14 tabs 05/11/23 10/30/23 Rx mg-trimethoprim 160 mg tablet meclizine 12.5 mg tablet 12.5 mg PO TID PRN dizziness #30 09/12/23 10/30/23 Rx tabs clopidogrel 75 mg tablet 75 mg PO DAILY #90 tabs 09/14/23 11/13/23 Rx pantoprazole 40 mg tablet,delayed 40 mg PO QAM #90 tabs 09/14/23 11/08/23 Rx release megestrol 40 mg tablet 40 mg PO TID #90 tabs 10/03/23 10/30/23 Rx simvastatin 20 mg tablet 20 mg PO DAILY #90 tabs 10/08/23 10/30/23 Rx docusate sodium 100 mg capsule 100 mg PO DAILY #7 caps 10/25/23 10/30/23 Rx (Colace) tramadol 50 mg tablet 50 mg PO DAILY 10/30/23 10/30/23 History Allergies Allergy/AdvReac Type Severity Reaction Status Date / Time No Known Allergies Allergy Verified 11/13/23 11:10 Vital Signs Vital Signs - 24 hr 11/13/23 11:10 Temperature 97.4 F L Pulse Rate 87 Respiratory Rate 16 Blood Pressure 155/63 H Pulse Oximetry 99 Oxygen Delivery Room Air Exam Const: General: comfortable and no acute distress HENMT: Face/Nose/Sinus: Normal nares present Eyes: General: appearance normal, both eyes and all related structures Neck: Neck: no JVD Resp: Auscultation: clear to auscultation bilaterally Cardio: Rate: regular rate Rhythm: regular rhythm GI: Inspection: non-distended GI Palp: Yes Soft to palpation Skin: General skin exam: normal color Neuro: General: gait normal Speech: normal speech Extrem: General: normal to inspection Psych: Mental Status: mental status grossly normal Assessment and Plan Assessment and plan (1) Chronic GERD: Code(s): K21.9 - Gastro-esophageal reflux disease without esophagitis Status: Acute Assessment and Plan: egd to assess healing of esophagitis
[2023-11-13 12:50] VITALS: BP 119/61; PULSE 72; RESP 28; O2SAT 100
[2023-11-13 13:00] VITALS: BP 165/104; PULSE 72; RESP 22; O2SAT 100
[2023-11-13 13:10] VITALS: BP 172/82; PULSE 77; RESP 19; O2SAT 100
== END 2023-11-13 13:20 | disposition home or self-care (01) ==
PROVIDERS: PCP Internal Medicine; Visit Provider Internal Medicine Gastroenterology
PROC: 0DJ08ZZ Inspection of Upper Intestinal Tract, Via Natural or Artificial Opening Endoscopic (ICD-10-PCS; CPT 43235; principal; 2023-11-13 12:30)
DX: K21.9 Gastro-esophageal reflux disease without esophagitis (principal); Z79.02 Long term (current) use of antithrombotics/antiplatelets; Z87.891 Personal history of nicotine dependence; Z87.19 Personal history of other diseases of the digestive system
CPT/HCPCS: 43235; J2704; J7120

== ENCOUNTER 2023-12-04 10:14 | Outpatient (CLI) | payer MEDICARE, SELFPAY ==
[2023-12-04 10:42] LABS: Basophils Absolute Auto 0.1 K/mm3 (0.0-0.1); Basophils Percent Auto 1.1 % (0.2-1.2); Eosinophils Absolute Auto 0.3 K/mm3 (0-0.3); Eosinophils Percent Auto 2.5 % (0-4.4); Hematocrit 38.6 % (37.0-47.0); Hemoglobin 12.3 g/dL (12.0-15.0); Immature Granulocyte Absolute 0.02 K/mm3 (0.00-0.031); Immature Granulocyte Percent A 0.2 % (0-0.5); Lymphocytes Absolute Auto 4.04 K/mm3 (0.9-3.2); Lymphocytes Percent Auto 33.2 % (18.3-44.2); Mean Corpuscular HGB Conc 31.9 g/dl (32-36); Mean Corpuscular Hemoglobin 29.7 pg (26-34); Mean Corpuscular Volume 93.2 fl (80-100); Mean Platelet Volume 10.5 fl (7.4-10.4); Monocytes Percent Auto 8.2 % (2.6-8.5); Neutrophils Absolute Auto 6.7 K/mm3 (1.3-6.7); Neutrophils Percent Auto 54.8 % (45.5-73.1); Platelet Count Result 337 k/mm3 (150-375); Red Blood Count 4.14 M/mm3 (4.2-5.4); Red Cell Distribution Width 15.7 % (11.5-14.5); White Blood Count 12.2 K/mm3 (4.5-10.0)
[2023-12-04 10:56] LABS: Alanine Aminotransferase 11 U/L (6-35); Albumin Level 4.9 g/dL (3.5-5.1); Alkaline Phosphatase 71 U/L (38-126); Anion Gap 14 mmol/L (4-12); Aspartate Amino Transferase 20 U/L (14-36); Blood Urea Nitrogen 22 mg/dL (7-17); Calcium 10.5 mg/dL (8.4-10.2); Carbon Dioxide 18 mmol/L (22-30); Chloride 111 mmol/L (98-107); Estimated Glomerular Filt Rate 53; Glucose 94 mg/dL (65-110); Potassium 4.4 mmol/L (3.4-5.0); Sodium 143 mmol/L (137-145)
== END 2023-12-04 10:15 | disposition home or self-care (01) ==
LOC: ANHLAB 10:17
PROVIDERS: PCP Internal Medicine; Visit Provider Internal Medicine
DX: R63.4 Abnormal weight loss (principal)
CPT/HCPCS: 36415; 80053; 84443; 85025

== ENCOUNTER 2024-01-11 10:44 | Outpatient (CLI) | payer MEDICARE, SELFPAY ==
[2024-01-11 11:45] LABS: Parathyroid Intact 90.5 pg/mL (7.5-53.5)
[2024-01-11 11:47] LABS: Anion Gap 9 mmol/L (4-12); Blood Urea Nitrogen 18 mg/dL (7-17); Calcium 9.8 mg/dL (8.4-10.2); Carbon Dioxide 23 mmol/L (22-30); Chloride 111 mmol/L (98-107); Estimated Glomerular Filt Rate 47; Glucose 103 mg/dL (65-110); Sodium 143 mmol/L (137-145)
== END 2024-01-11 10:45 | disposition home or self-care (01) ==
LOC: ANHLAB 10:46
PROVIDERS: PCP Internal Medicine; Visit Provider Internal Medicine
DX: E83.52 Hypercalcemia (principal)
CPT/HCPCS: 36415; 80048; 83970

== ENCOUNTER 2024-02-18 09:43 | Outpatient (CLI) | payer MEDICARE, SELFPAY ==
[2024-02-18 10:51] LABS: Appearance Urine Cloudy (Clear); Bacteria Urine 1+ /hpf; Bilirubin Urine Negative (Negative); Blood Urine 1+ (Negative); Color Urine Yellow (Yellow); Glucose Urine UA Negative (Negative); Ketones Urine Negative (Negative); Leukocyte Esterase Ur 3+ LEU/UL (Negative); Nitrate Urine Negative (Negative); Non Pathogenic Casts 0-2; Protein Urine Trace mg/dL (Negative); Specific Grav Ur 1.017 (1.001-1.035); Squamous Epithelial Cell Urine Moderate /hpf (Few); WBC Urine 51-100 /hpf (0-3)
[2024-02-18 10:52] LABS: Hematocrit 36.1 % (37.0-47.0); Hemoglobin 11.7 g/dL (12.0-15.0); Mean Corpuscular HGB Conc 32.4 g/dl (32-36); Mean Corpuscular Hemoglobin 31.7 pg (26-34); Mean Corpuscular Volume 97.8 fl (80-100); Platelet Count Result 297 k/mm3 (150-375); Red Blood Count 3.69 M/mm3 (4.2-5.4); Red Cell Distribution Width 14.4 % (11.5-14.5); White Blood Count 10.9 K/mm3 (4.5-10.0)
[2024-02-18 10:53] LABS: Add Urine Microscopic? YES
[2024-02-18 11:04] LABS: Albumin Level 4.2 g/dL (3.5-5.1); Anion Gap 9 mmol/L (4-12); Blood Urea Nitrogen 24 mg/dL (7-17); Calcium 9.6 mg/dL (8.4-10.2); Carbon Dioxide 27 mmol/L (22-30); Chloride 105 mmol/L (98-107); Creatine Kinase 31 U/L (30-135); Estimated Glomerular Filt Rate 43; Glucose 92 mg/dL (65-110); Phosphorus 3.5 mg/dL (2.5-4.5); Sodium 141 mmol/L (137-145)
[2024-02-18 11:06] LABS: Parathyroid Intact 80.3 pg/mL (7.5-53.5)
[2024-02-18 11:07] LABS: Creatinine Urine 90.9 mg/dL; Total Protein Urine Random 18 mg/dL
[2024-02-18 11:09] LABS: Complement C3 111 mg/dL (88-165)
[2024-02-18 11:10] LABS: Potassium 3.8 mmol/L (3.4-5.0)
[2024-02-18 11:19] LABS: Erythrocyte Sedimentation Rate 16 mm/hr (0-20)
[2024-02-20 16:14] LABS: Complement Total CH50 >60 U/mL (31-60)
[2024-02-20 19:58] LABS: Immunofixation, Serum Normal pattern.
== END 2024-02-18 09:44 | disposition home or self-care (01) ==
LOC: ANHLAB 09:49
PROVIDERS: PCP Internal Medicine; Visit Provider Internal Medicine Nephrology
DX: N18.31 Chronic kidney disease, stage 3a (principal)
CPT/HCPCS: 36415; 80069; 81001; 82550; 82570; 83970; 84156; 85027; 85652; 86038; 86039; 86160; 86162; 86334

== ENCOUNTER 2024-03-01 09:07 | Outpatient (CLI) | payer MEDICARE, SELFPAY ==
--- NOTE | ~2024-03-01 | US_ITS ---
US renal BI 03/01/2024 09:49 Procedure: Realtime transabdominal ultrasound of the kidneys and bladder. Indication: Chronic kidney disease stage IIIa Comparison: No prior studies for comparison. Findings: Renal echotexture is normal bilaterally without hydronephrosis, contour deforming mass or r enal calculus. The right kidney measures 10 cm and left kidney measures 10.3 cm. Bladder within norm al limits. Impression: 1: Unremarkable renal ultrasound. No stones, masses or hydronephrosis. Reviewed, dictated and finalized at location B. Impression: 1: Unremarkable renal ultrasound. No stones, masses or hydronephrosis.
[2024-03-01 10:19] LABS: Albumin Level 4.3 g/dL (3.5-5.1); Anion Gap 10 mmol/L (4-12); Blood Urea Nitrogen 21 mg/dL (7-17); Calcium 9.8 mg/dL (8.4-10.2); Carbon Dioxide 27 mmol/L (22-30); Chloride 99 mmol/L (98-107); Estimated Glomerular Filt Rate 39; Glucose 82 mg/dL (65-110); Phosphorus 4.3 mg/dL (2.5-4.5); Potassium 4.3 mmol/L (3.4-5.0); Sodium 136 mmol/L (137-145)
[2024-03-01 10:31] LABS: Creatinine Urine 38.9 mg/dL
[2024-03-01 10:36] LABS: MALB Creatinine Ratio 29.3 mg/g (0-30); Microalbumin Urine Random 11.4 mg/L (0-16.7)
== END 2024-03-01 09:08 | disposition home or self-care (01) ==
PROVIDERS: PCP Internal Medicine; Visit Provider Internal Medicine Nephrology
DX: M54.9 Dorsalgia, unspecified (principal); N18.31 Chronic kidney disease, stage 3a
CPT/HCPCS: 36415; 76775; 80069; 82043; 87086; 87088

== ENCOUNTER 2024-03-06 10:35 | Outpatient (NON) | payer MEDICARE, SELFPAY ==
[2024-03-06 11:45] LABS: Total Volume 24 Hour Urine 700 ml; Urea Nitrogen 24 Hour Urine 5.4 G/DAY (12-20)
[2024-03-07 18:28] LABS: Pro/Creat Ratio 141 mg/g creat (<150); Pro/Creat Ratio mg/mg 0.141 (<0.150); Protein,total, 24 Hr Ur 14 mg/24 h (<150)
[2024-03-10 16:14] LABS: Albumin 100 %
== END 2024-03-06 10:36 | disposition home or self-care (01) ==
PROVIDERS: PCP Internal Medicine; Visit Provider Internal Medicine Nephrology
DX: N18.31 Chronic kidney disease, stage 3a (principal)
CPT/HCPCS: 81050; 84540; 86335

== ENCOUNTER 2024-04-03 05:49 | Outpatient (CLI) | payer MEDICARE, SELFPAY ==
--- NOTE | 2024-03-28 13:53 | PC.NURSE ---
Pre Radiology instructions Report to the outpatient ernesto briggs on date _04/03/24____ at time __07 for procedure Time: _929___ YOU MAY BE MONITORED AT HOSPITAL FOR UP TO 4 HOURS AFTER YOUR PROCEDURE. A visitor will be allowed to accompany the patient into the hospital. You and your visitor will be asked to self-screen and do not enter if you have any COVID symptoms. A mask is OPTIONAL within the hospital. Patients are to have no food or drink 6 hours prior to procedure time Driving will be restricted after the procedure, you must have a person to drive you home. Labs will be drawn in preop area and once reviewed, you will be taken to radiology area for procedure. When the procedure is completed, you will be taken to outpatient where you will be monitored for several hours. You may have one visitor in this area. Other than holding anti-coagulants, patient may take other medication(s) as scheduled. Prior to your appointment date patients are instructed to hold anti-coagulants after discussing with ordering provider to stop. If unable to discontinue anti-coagulants please notify radiologist. ? No aspirin or warfarin (Coumadin) for 7 days prior to the procedure. ? No clopidogrel (Plavix), ticagrelor (Brilinta), prasugrel (Effient) or dabigatran (Pradaxa) for 5 days prior to the procedure. ? No rivaroxaban (Xarelto), apixaban (Eliquis), dipyridamole (Aggrenox or Persantine) or cilostazol (Pletal) for 2 days prior to the procedure. Medications to discontinue per physician: _PLAVIX HOLD 5 DAYS PRE OP LAST DOSE 03/28/24 Date to take last dose: Please leave all valuables, including medications, at home the day of procedure. The hospital will not accept responsibility for valuables. Wear comfortable, loose fitting clothing.? Follow any additional instructions given to you from ordering provider. Telephone instructions given to _PATIENT and asked if any additional questions and then verbalized understanding. Patient advised to call scheduling provider office or registration scheduling [phone] if any additional questions.
[2024-03-28 14:00] VITALS: BMI 20.2
[2024-04-03] VITALS (11 sets, daily range): BP systolic 131–182; BP diastolic 53–92; PULSE 59–80; RESP 20; TEMP 36.3; O2SAT 97
--- NOTE | ~2024-04-03 | US_ITS ---
EXAMINATION: US biopsy renal DATE: 04/03/2024 10:18 INDICATION: Stage IIIa chronic kidney disease. Hematuria and proteinuria. TECHNIQUE: The procedure including the risks, benefits, and alternatives was discussed with the patie nt. Risks discussed included bleeding and infection. The patient understood the risks and agreed to p roceed. A timeout was performed to verify the patient's name, date of , and procedure to be p erformed. The skin overlying the left kidney was prepped and draped in usual sterile fashion. Anest hetic was administered with 1% lidocaine subcutaneously. An 18 gauge core biopsy needle was then use d to obtain 3 core biopsy specimens under continuous sonographic guidance. The entry site was cleaned and dressed. There were no immediate complications. FINDINGS: Ultrasound images demonstrate the needle in the kidney. IMPRESSION: 1. Ultrasound-guided random left kidney core needle biopsy. Reviewed, dictated and finalized at location A.
[2024-04-03 08:45] LABS: Mean Platelet Volume 10.1 fl (7.4-10.4); Platelet Count Result 271 k/mm3 (150-375)
[2024-04-03 08:56] LABS: Prothrombin Time 13.3 Seconds (11.1-14.7)
--- NOTE | 2024-04-03 13:05 | SUR.PHASEII ---
patient BP was 180/68 called MD Navarrete has been paged in regards to elevated BP
--- NOTE | 2024-04-03 13:17 | SUR.PHASEII ---
patient blood pressure was assessed with Dr. Navarrete at bedside. MD recommends to follow up with PCP. No intervention done at this time
== END 2024-04-03 14:17 | disposition home or self-care (01) ==
PROVIDERS: PCP Internal Medicine; Referring Provider Internal Medicine Nephrology; Visit Provider Radiology Diagnostic Radiology
PROC: (CPT 76942; principal; 2024-04-03 09:30)
DX: N18.31 Chronic kidney disease, stage 3a (principal); R31.9 Hematuria, unspecified; R80.9 Proteinuria, unspecified; N26.9 Renal sclerosis, unspecified
CPT/HCPCS: 36415; 50200; 76942; 85049; 85610; 88300; 88329

== ENCOUNTER 2024-04-25 10:39 | Outpatient (CLI) | payer MEDICARE, SELFPAY ==
[2024-04-25 11:17] LABS: Basophils Absolute Auto 0.2 K/mm3 (0.0-0.1); Basophils Percent Auto 1.4 % (0.2-1.2); Eosinophils Absolute Auto 0.4 K/mm3 (0-0.3); Eosinophils Percent Auto 3.3 % (0-4.4); Hematocrit 34.5 % (37.0-47.0); Hemoglobin 11.4 g/dL (12.0-15.0); Immature Granulocyte Absolute 0.04 K/mm3 (0.00-0.031); Immature Granulocyte Percent A 0.3 % (0-0.5); Lymphocytes Absolute Auto 4.49 K/mm3 (0.9-3.2); Mean Corpuscular Volume 96.9 fl (80-100); Mean Platelet Volume 10.4 fl (7.4-10.4); Monocytes Absolute Auto 1.1 K/mm3 (0.1-0.6); Monocytes Percent Auto 9.4 % (2.6-8.5); Neutrophils Absolute Auto 5.9 K/mm3 (1.3-6.7); Neutrophils Percent Auto 48.6 % (45.5-73.1); Platelet Count Result 292 k/mm3 (150-375); Red Blood Count 3.56 M/mm3 (4.2-5.4); Red Cell Distribution Width 13.6 % (11.5-14.5); White Blood Count 12.1 K/mm3 (4.5-10.0)
[2024-04-25 11:27] LABS: Alanine Aminotransferase 10 U/L (6-35); Albumin Level 4.3 g/dL (3.5-5.1); Alkaline Phosphatase 70 U/L (38-126); Anion Gap 10 mmol/L (4-12); Aspartate Amino Transferase 21 U/L (14-36); Bilirubin,Total 0.5 mg/dL (0.2-1.3); Blood Urea Nitrogen 26 mg/dL (7-17); Calcium 10.1 mg/dL (8.4-10.2); Carbon Dioxide 24 mmol/L (22-30); Chloride 105 mmol/L (98-107); Cholesterol 166 mg/dL (0-200); Estimated Glomerular Filt Rate 43; Glucose 105 mg/dL (65-110); HDL Direct 67 mg/dL; Phosphorus 3.6 mg/dL (2.5-4.5); Potassium 4.1 mmol/L (3.4-5.0); Sodium 139 mmol/L (137-145); Triglycerides 164 mg/dL (<150)
[2024-04-25 11:39] LABS: LDL Cholesterol Direct 72 mg/dL
== END 2024-04-25 10:40 | disposition home or self-care (01) ==
PROVIDERS: PCP Internal Medicine; Visit Provider Internal Medicine
DX: E78.5 Hyperlipidemia, unspecified (principal); F03.90 Unspecified dementia, unspecified severity, without behavioral disturbance, psychotic disturbance, mood disturbance, and anxiety; D64.9 Anemia, unspecified; R63.4 Abnormal weight loss; N18.31 Chronic kidney disease, stage 3a; N05.1 Unspecified nephritic syndrome with focal and segmental glomerular lesions
CPT/HCPCS: 36415; 80053; 80061; 82607; 84100; 84443; 85025

== ENCOUNTER 2024-05-13 14:50 | Outpatient (CLI) | payer MEDICARE, SELFPAY ==
[2024-05-13 16:28] LABS: HIV 1/2 Ab P24 Ag Result Negative (Negative)
== END 2024-05-13 14:51 | disposition home or self-care (01) ==
LOC: ANHLAB 14:54
PROVIDERS: PCP Internal Medicine; Visit Provider Internal Medicine Nephrology
DX: N05.1 Unspecified nephritic syndrome with focal and segmental glomerular lesions (principal); Z11.4 Encounter for screening for human immunodeficiency virus [HIV]
CPT/HCPCS: 36415; 86703; G0432

== ENCOUNTER 2024-08-08 12:00 | Outpatient (CLI) | payer MEDICARE, SELFPAY ==
[2024-08-08 12:26] LABS: Hematocrit 36.2 % (37.0-47.0); Hemoglobin 11.7 g/dL (12.0-15.0); Mean Corpuscular HGB Conc 32.3 g/dl (32-36); Mean Corpuscular Hemoglobin 30.5 pg (26-34); Mean Corpuscular Volume 94.5 fl (80-100); Mean Platelet Volume 10.1 fl (7.4-10.4); Platelet Count Result 383 k/mm3 (150-375); Red Blood Count 3.83 M/mm3 (4.2-5.4); White Blood Count 13.9 K/mm3 (4.5-10.0)
[2024-08-08 12:38] LABS: Albumin Level 4.3 g/dL (3.5-5.1); Anion Gap 4 mmol/L (4-12); Blood Urea Nitrogen 27 mg/dL (7-17); Calcium 10.5 mg/dL (8.4-10.2); Carbon Dioxide 28 mmol/L (22-30); Chloride 110 mmol/L (98-107); Estimated Glomerular Filt Rate 43; Glucose 95 mg/dL (65-110); Potassium 3.8 mmol/L (3.4-5.0); Sodium 142 mmol/L (137-145)
[2024-08-08 12:49] LABS: Parathyroid Intact 60.2 pg/mL (14.5-75.2)
[2024-08-08 15:34] LABS: Creatinine Urine 118.8 mg/dL; Total Protein Urine Random 21 mg/dL; Ur Ttl Prot Creatinine Ratio 0.18 mg/mg (0-0.20)
== END 2024-08-08 12:01 | disposition home or self-care (01) ==
LOC: ANHLAB 12:01
PROVIDERS: PCP Internal Medicine; Visit Provider Internal Medicine Nephrology
DX: N18.31 Chronic kidney disease, stage 3a (principal)
CPT/HCPCS: 36415; 80069; 82570; 83970; 84156; 85027

== ENCOUNTER 2024-11-13 07:29 | Inpatient (IN) | payer MEDICARE, SELFPAY ==
[2024-11-13] VITALS (26 sets, daily range): BP systolic 117–168; BP diastolic 43–94; PULSE 71–96; RESP 13–20; TEMP 36.1–36.8; O2SAT 2–100
--- NOTE | ~2024-11-13 | XR_ITS ---
EXAMINATION: XR surgery orthopedic DATE: 11/13/2024 15:32 INDICATION: Right wrist ORIF TECHNIQUE: 4 fluoroscopic images of the right wrist were obtained during procedure performed by Dr. Analy diehl. Radiologist was not present for the imaging or procedure. The amount of fluoroscopy time use d during this procedure was 0.2 minutes. Total DAP was 0.21662 mGym^2. COMPARISON: None. FINDINGS: Images demonstrate an impacted fracture of the distal right radius. This is subsequently ca sted. Alignment is near-anatomic with 0 degree tilt of the distal articular surface on the lateral pr ojection. No definite intra-articular extension. No other fractures identified. Severe osteoarthritis at the triscaphe joint. IMPRESSION: 1. Near-anatomic alignment post reduction and casting of a fracture of the distal right radius. Reviewed, dictated and finalized at location B. IMPRESSION: 1. Near-anatomic alignment post reduction and casting of a fracture of the dist al right radius.
--- NOTE | ~2024-11-13 | XR_ITS ---
EXAMINATION: XR surgery orthopedic DATE: 11/13/2024 15:32 INDICATION: Right hip pinning TECHNIQUE: 2 fluoroscopic images of the right hip were obtained during procedure performed by . Radiologist was not present for the imaging or procedure. The amount of fluoroscopy time used during this procedure was 1.4 minutes. Total DAP was 0.32 mGym^2. COMPARISON: 11/13/2024 FINDINGS: Fixation with 3 lag screws of the impacted subcapital fracture of the proximal right femur which elvin ins in near-anatomic alignment. Osteoarthritis at the right hip with moderate to severe joint space n arrowing inferiorly and small to moderate-sized marginal osteophytes about the femoral head and aceta bulum. No other fractures identified. IMPRESSION: 1. Unchanged near-anatomic alignment post screw fixation of an impacted subcapital fracture of the pr oximal right femur. 2. Moderate to severe right hip osteoarthritis. Reviewed, dictated and finalized at location B. IMPRESSION: 1. Unchanged near-anatomic alignment post screw fixation of an impacted subcapi mary fracture of the proximal right femur. 2. Moderate to severe right hip osteoarthritis.
--- NOTE | ~2024-11-13 | XR_ITS ---
XR chest 1V portable Ordering provider: Jada Jane APRN History: 84 years Female with . re eval fpr pneum . Comparison: November 15, 2024 FINDINGS: MEDIASTINUM: The cardiac silhouette is not enlarged. Stent graft is seen in the descending aorta. LUNGS: No infiltrates, effusions or pneumothorax. Underlying emphysematous and fibrotic changes. OTHER: No free air under the diaphragm. Old healed fracture in the proximal right humerus. IMPRESSION: No acute cardiopulmonary pathology. Reviewed, dictated and finalized at location A.
--- NOTE | ~2024-11-13 | XR_ITS ---
EXAMINATION: XR hip RT 2V w AP pelvis DATE: 11/13/2024 09:20 INDICATION: Right hip pain post fall TECHNIQUE: Anteroposterior view of the right hip and pelvis and crosstable lateral view of the right hip were obtained. COMPARISON: 10/25/2023 FINDINGS: Posteriorly impacted subcapital fracture of the proximal right femur with mild posterior angulation. No other fractures identified. Mild to moderate osteoarthritis at the right hip and bilateral sacral iliac joints. Mild osteoarthritis at the left hip. Surgical clip in the left lower quadrant. IMPRESSION: 1. Posteriorly impacted subcapital fracture of the proximal right femur. Reviewed, dictated and finalized at location B.
--- NOTE | ~2024-11-13 | CT_ITS ---
EXAMINATION: CT lumbar spine wo con DATE: 11/13/2024 08:52 INDICATION: Back pain post fall TECHNIQUE: Computed tomography (CT) of the lumbar spine was performed without intravenous contrast. A utomated exposure control and iterative reconstruction technique were employed. The dose-length produ ct was 575.29 mGy-cm. COMPARISON: None FINDINGS: Limited normal. Vertebral body and disc heights are normal. Mild atelectasis at the visuali zed bilateral lung bases. 3 nonobstructing stones measuring up to 2 mm at the upper pole of the left kidney. Partially visualized bilateral renal cysts measuring up to at least 2.5 cm. 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 There is a bypass graft arising from the left side of the infrarenal aorta which extends cephalad to the upper abdomen and anterior to the field of imagin g potentially supplying the celiac axis to suggest the aneurysm or the superior mesenteric artery. Pa ravertebral soft tissues are otherwise unremarkable. The following disc levels are specifically discu ssed: T11-T12: There is mild bilateral facet joint osteoarthritis. There is no neural foraminal stenosis. There is no central canal stenosis. T12-L1: There is mild left and moderate right facet joint osteoarthritis. There is mild left neural foraminal stenosis. There is no central canal stenosis. L1-L2: Disc is mildly bulging. There is mild left and moderate right facet joint osteoarthritis. Ther e is no neural foraminal stenosis. There is minimal central canal stenosis. L2-L3: Disc is bulging. There is mild left and moderate right facet joint osteoarthritis. There is mi ld bilateral neural foraminal stenosis. There is mild central canal stenosis. L3-L4: Disc is bulging. There is hypertrophy of the ligamentum flavum. There is moderate bilateral fa cet joint osteoarthritis. There is mild bilateral neural foraminal stenosis. There is moderate to sev ere central canal stenosis. L4-L5: Disc is bulging. There is hypertrophy of the ligamentum flavum. There is moderate left and sev ere right facet joint osteoarthritis. There is mild to moderate bilateral neural foraminal stenosis. There is severe central canal stenosis. L5-S1: Disc is bulging. There is severe bilateral facet joint osteoarthritis. There is mild bilateral neural foraminal stenosis. There is mild central canal stenosis. IMPRESSION: 1. Mild lumbar spondylosis. 2. 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 2. A few tiny nonobstructing left renal stones. Reviewed, dictated and finalized at location B.
--- NOTE | ~2024-11-13 | XR_ITS ---
EXAMINATION: XR wrist RT min 3V DATE: 11/13/2024 09:20 INDICATION: Right wrist injury post fall TECHNIQUE: Posteroanterior, oblique and lateral views of the right wrist were obtained. COMPARISON: none FINDINGS: Diffuse osteopenia. Comminuted posteriorly impacted fracture of the metaphyseal region of the distal radius with 17 degrees dorsal tilt of the distal articular surface. No other fractures identified. Se duane polyarticular osteoarthritis at the radial aspect of the carpus and involving multiple metacarpo phalangeal and interphalangeal joints. IMPRESSION: 1. Dorsally impacted comminuted distal metaphyseal fracture of the right radius. 2. 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 Reviewed, dictated and finalized at location B. IMPRESSION: 1. Dorsally impacted comminuted distal metaphyseal fracture of the right radius . 2. 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
--- NOTE | ~2024-11-13 | XR_ITS ---
EXAM/PROCEDURE: XR chest 1V portable - 11/13/2024 09:20 CDT HISTORY: 84 years old Female with pre-op TECHNIQUE: Three view(s) of the chest. COMPARISON: 02/09/2021 FINDINGS: LUNGS/ PLEURA: Lungs are hyperinflated with flattening of the diaphragm and increased lung markings i n both upper lobes, findings seen with COPD. Bibasilar atelectasis and/or scarring. No focal consolid ation. No appreciable pneumothorax or large pleural effusion. HEART/ MEDIASTINUM: Heart appears normal in size. Tortuous aorta with stent. A possible shunt cathete r extending cranially. BONES: Degenerative changes. OTHER: Visualized upper abdomen is unremarkable. Surgical clips are seen in the abdomen. IMPRESSION: No acute process. COPD. Reviewed, dictated and finalized at location A. IMPRESSION: No acute process. COPD.
--- NOTE | ~2024-11-13 | XR_ITS ---
EXAM/PROCEDURE: XR chest 1V portable - 11/15/2024 08:40 CDT HISTORY: 84 years old Female with elevated wbc, r/u pneumonia TECHNIQUE: AP view(s) of the chest. COMPARISON: 11/13/2024 FINDINGS/ IMPRESSION: Hyperinflated lungs flattening of diaphragm and increased lung markings, likely COPD. Right shoulder deformity. No large consolidation or airspace opacity. No pneumothorax or pleural effusion. Cardiomed iastinal silhouette is unremarkable. Multiple joint degenerative changes. Reviewed, dictated and finalized at location A.
--- NOTE | ~2024-11-13 | XR_ITS ---
EXAMINATION: XR knee RT min 4V DATE: 11/13/2024 09:20 INDICATION: Right hip/lower limb pain post fall TECHNIQUE: Anteroposterior, oblique and crosstable lateral views of the right knee were obtained COMPARISON: None. FINDINGS: Alignment is normal. No fracture. Tricompartmental osteoarthritis the right knee with small marginal osteophytes in all 3 compartments and with mild joint space narrowing at the medial compartment. No joint effusion/layering lipohemarthrosis. Soft tissues are unremarkable. IMPRESSION: 1. Mild tricompartmental osteoarthritis at the right knee. No joint effusion or acute osseous abnorma lity. Reviewed, dictated and finalized at location B. IMPRESSION: 1. Mild tricompartmental osteoarthritis at the right knee. No joint effusion or acute osseous abnormality.
--- OUTSIDE RECORDS SUMMARY | 2024-11-13 08:22 | XMS_ITS | Clinical Summary ---
Author Organization [facility] Address [facility] [address] [place] [address] Care Team Providers Care Sheet Metal Operator Name Role Phone Gustavo Hsieh MD Primary Care Provider [phone] Allergies No known active allergies Medications simvastatin 20 MG tablet Take 20 mg by mouth nightly at bedtime. 01/24/2018 Active Active Problems Problem Noted Date Diagnosed Date SIRS (systemic inflammatory response syndrome) ([facility]) 04/09/2018 Pure hypercholesterolemia 04/09/2018 Acute cystitis 04/09/2018 Family History Medical History Relation Comments Cancer Brother Cancer Father Stroke Mother alzheimers Sister Relation Status Comments Brother Father Mother Sister Alive Social History Tobacco Use Types Packs/Day Years Used Date Smoking Tobacco: Former Cigarettes Q uit: 07/27/2023 Smokeless Tobacco: Never Alcohol Use Standard Drinks/Week Comments No 0 (1 standard drink = 0.6 oz pur e alcohol) Comments No Sex and Gender Information Value Date Recorded Sex Assigned at Not on file Legal Sex Female 8:11 PM CDT Gender Identity Not on file Sexual Orientation Not on file Last Filed Vital Signs Vital Sign Reading Time Taken Comments Blood Pressure 111/54 08/27/2023 5:40 PM PHYSICAL THERAPY AIDES TEACHER Pulse 84 08/27/2023 5:40 PM PHYSICAL THERAPY AIDES TEACHER Temperature 36.6 C (97.9 F) 08/27/2023 4:13 AM PHYSICAL THERAPY AIDES TEACHER Respiratory Rate 19 08/27/2023 5:40 PM PHYSICAL THERAPY AIDES TEACHER Oxygen Saturation 95% 08/27/2023 5:45 PM PHYSICAL THERAPY AIDES TEACHER Inhaled Oxygen Concentration - - Weight 55.2 kg (121 lb 11.1 oz) 08/27/2023 4:13 AM PHYSICAL THERAPY AIDES TEACHER Height 167.6 cm (5' 6 ) 08/27/2023 4:13 AM PHYSICAL THERAPY AIDES TEACHER Body Mass Index 19.64 08/27/2023 4:13 AM PHYSICAL THERAPY AIDES TEACHER Plan of Treatment Health Maintenance Due Date Last Done Comments DTaP, Tdap and Td Vaccines (1 - Tdap) 1959 Zoster Vaccines (1 of 2) 1990 Annual Medicare Wellness Visit 2005 Dexa Scan (General) 2005 RSV Immunization or 60+ Years (1 - 1-dose 75+ series) 2015 Meningococcal B Vaccine (2 of 5 - Increased Risk Bexsero 3-dose series) 08/29/2023 08/01/2023 Meningococcal Vaccine (2 - Risk 2-dose series) 09/26/2023 08/01/2023 COVID-19 Vaccine ( season) 2024 05/27/2023, 05/19/2022, 11/28/2021, Additional history exists Pneumococcal Vaccine: 65+ Years Completed 08/01/2023, 04/17/2017 RSV Immunizations Under 20 Months Aged Out No longer eligible based on patient's age to complete this topic Insurance [employer] Advance Directives * Full Code (Latest Code Status on File) Date Activated Date Inactivated Comments 04/09/2018 12:15 PM 04/10/2018 1:22 PM Care Teams Sheet Metal Operator Relationship Specialty Start Date End Date Gustavo Hsieh MD [address] [place] [address] (work) PCP - General INTERNAL MEDICINE 04/09/18
--- OUTSIDE RECORDS SUMMARY | 2024-11-13 08:22 | XMS_ITS | Encounter Summary ---
Author Organization [facility] Address [address] [facility] [place] [address] Care Team Providers Care Concrete Conveyor Operator Name Role Phone Gustavo Hsieh DO Primary Care Provider [phone] Encounter Details Date Type Department Care Team (Late st Contact Info) Description 09/28/2020 Telephone [facility] [address] [place] [address] Himanshu Arrington MD [facility] [place], [place] [id number] Social History Tobacco Use Types Packs/Day Years Used Date Smoking Tobacco: Every Day Smokeless Tobacco: Never Sex and Gender Information Value Date Recorded Sex Assigned at Not on file Gender Identity Not on file Sexual Orientation Not on file documented as of this encounter Miscellaneous Notes * Telephone Encounter - Fatmata Jung - 09/28/2020 10:48 AM CST The patient would like to speak to a nurse regarding on going care, can someone reach out to her [facility] WALKER documented in this encounter Plan of Treatment Not on file documented as of this encounter Visit Diagnoses Not on filedocumented in this encounter Care Teams Concrete Conveyor Operator Relationship Specialty Start Date End Date Gustavo Hsieh DO [address] [place] [address] PCP - General 11/23/09 documented as of this encounter
--- OUTSIDE RECORDS SUMMARY | 2024-11-13 08:22 | XMS_ITS | Referral Summary ---
Author Organization [facility] Address [address] [place] [address] Care Team Providers Care Ground Source Heat Pump Technician Name Role Phone Gustavo Hsieh MD Primary Care Provider + [phone] Alberto West MD Unavailable [phone] Diogo Corona MD Unavailable [phone] Encounters Date Type Department Care Team Description 09/29/2024 9:45 AM OLDER WORKER SPECIALIST Office Visit Cardiovascular and Thoracic Surgery [address] [place] [address] Diogo Corona MD Thoracoabdominal aortic aneurysm (TAAA) without rupture, unspecified part (Primary Dx) 09/29/2024 9:10 AM OLDER WORKER SPECIALIST - 09/29/2024 11:59 PM OLDER WORKER SPECIALIST Hospital Encounter [facility] [address] [place] [address] Thoracoabdominal aortic aneurysm (TAAA) without rupture, unspecified part Discharge Disposition: Discharge to home or self care from Last 3 Months Allergies No known active allergies Medications cyanocobalamin (Vitamin B-12) 100 mcg tabletIndications :Prevention of Vitamin B12 Deficiency Rx: Vitamin B12 100 MCG Tablet Active alendronate (FOSAMAX) 70 mg tabletIndications :Post-Menopausal Osteoporosis Mondays 1 Active simvastatin (ZOCOR) 20 mg tabletIndications :hyperlipidemia Take 1 tablet (20 mg total) by mouth daily 3 Active aspirin 81 mg enteric coated tabletIndications :prevention of thrombosis Take 1 tablet (81 mg total) by mouth daily 4 Active clopidogreL (PLAVIX) 75 mg tablet Take 1 tablet (75 mg total) by mouth daily 30 tablet [address] (PROTONIX) 40 mg EC tablet Take 1 tablet (40 mg total) by mouth daily 30 tablet 2 4 Active lisinopriL (PRINIVIL,ZESTRIL ) 10 mg tablet Take 1 tablet (10 mg total) by mouth daily Active gabapentin (NEURONTIN) 100 mg capsule Take 1 capsule (100 mg total) by mouth nightly 4 Active Active Problems Problem Noted Date Diagnosed Date Encounter for other specified aftercare 10/04/19 24 Calculus of gallbladder with out cholecystitis without obstruction 08/28/2023 Esophageal dysphagia 08/28/2023 Severe malnutrition 08/28/2023 General weakness 08/27/2023 Tobacco dependence 08/27/2023 Thoracoabdominal aortic aneurysm (TAAA) without rupture 06/07/2023 Closed fracture of right proximal humerus 2019 Varicose veins of right lower extremity with inf lammation 10/23/2018 Swelling of right lower extremity 10/15/2018 Acute cystitis 04/09/2018 Pure hypercholesterolemia 04/09/2018 Assessment & Plan (11/20/2022 4:14 PM CDT): Hypercholesterolemia chronic and controlled. Continue current medical management was Zocor. Assessment & Plan (11/15/2022 4:48 PM CDT): Hypercholesterolemia chronic and controlled. Continue Zocor. SIRS (systemic inflammatory response syndrome) 0 04/09/2018 Occlusion and stenosis of bilateral carotid shravan meena 05/17/2016 Overview (11/04/2018): Reported recent symptoms of single incident of double vision which resolved after a few minutes and 2 incidents of left side facial droop. Carotid duplex does show mild stenosis in the carotid arteries, however it measures less than 50% on both sides. The Assessment & Plan (11/20/2022 4:14 PM CDT): Asymptomatic. Continue yearly duplex surveillance. Assessment & Plan (11/15/2022 4:45 PM CDT): Asymptomatic. Continue yearly duplex surveillance. Assessment & Plan (02/04/2020 3:18 PM CDT): Impression: Mild bilateral internal carotid artery stenoses which remain asymptomatic. No progression noted on carotid duplex surveillance. Plan: No surgical intervention currently needed. Patient follow-up in 1 year for re-evaluation and repeat carotid duplex surveillance. Assessment & Plan (11/05/2018 1:29 PM CDT): Patient remains asymptomatic. Will follow-up with yearly duplex surveillance. 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 Have made the referral to Dr. Ed Corona Cardiothoracic surgery for evaluation and possible repair. Assessment & Plan (11/20/2022 4:14 PM CDT): Stable thoracoabdominal aneurysms. Repeat CT scan 6 months. Assessment & Plan (11/15/2022 4:47 PM CDT): Aneurysm stable. Follow-up with Six-month CT. Assessment & Plan (02/04/2020 3:19 PM CDT): Impression: Stable asymptomatic celiac artery aneurysm currently measuring 1.7 cm on CTA abdomen and pelvis. Plan: No surgical intervention currently needed. Recommend follow-up in 1 year for re-evaluation and repeat CTA surveillance. Assessment & Plan (11/05/2018 1:32 PM CDT): CT angiogram was reviewed. Celiac arteries occluded aneurysm is stable she does not experience chronic mesenteric ischemia. Does not warrant any further workup or intervention at this time. Will obtain surveillance CT scan at 1 year. Resolved Problems Problem Noted Date Diagnosed Date Resolved Date Moderate malnutrition 08/02/20232023 Immunizations Immunization Administration Dates Next Due Hib (PRP-T) 08/01/2023 Influenza Virus Vaccine Trivalent Mdv 04/02/2019 Influenza, Trivalent, Adjuva nted, Intramuscular 04/02/2019 Influenza, Trivalent, High D ose, Split, Preservative Free, Intramuscular 04/02/2019,04/22/2018,04/17/2017,04/25,05/22/2015 Influenza, Trivalent, IM (MDV) 05/13/2014,2012 Influenza, Unspecified 06/20/2023 Meningococcal B, OMV (Bexsero) 08/01/2023 Meningococcal Conjugate (Menveo) 08/01/2023 Pneumococcal Conjugate PCV 13 04/17/2017 Pneumococcal Conjugate Pcv20 08/01/2023 Social History Tobacco Use Types Packs/Day Years Used Date Smoking Tobacco: Every Day Cigarettes 1 60 Started: 10/19/1958; Last attempted to quit: 10/19/2018 Smokeless Tobacco: Never Tobacco Cessation:Ready to Q uit: Not Asked; Counseling Given: Not Answered OASIS D0700: Social Isolation Answer Da te Recorded Frequency of experiencing loneliness or isolatio n Never 10/08/2023 OASIS A1250: Transportation Answer Date Recorded Lack of Transportation (Medical) No 10/08/2023 Lack of Transportation (Non-Medical) No 10/08/2023 Patient Unable or Declines to Respond No 10/08/2023 OASIS B1300: Health Literacy Answer Ramana e Recorded Frequency of needing help to read materials from doctor or pharmacy Never 10/08/2023 [facility] Utilities Answer Date Recorded In the past 12 months has th e [employer] Classifieds, gas, oil, or water [employer]el[employer] threatened to shut off services in your home? No 08/30/2023 Social Connection and Isolat ion Panel [NHANES] Answer Date Recorded In a typical week, how many times do you talk on the phone with family, friends, or neighbors? More than three times a week 08/30/2023 How often do you get togethe r with friends or relatives? More than three times a week 08/30/2023 How often do you attend up health system or christian services? Never 08/30/2023 Do you belong to any clubs o r organizations such as yazidi groups, unions, fraternal or athletic groups, or school groups? No 08/30/2023 How often do you attend meet ings of the clubs or organizations you belong to? Never 08/30/2023 Are you , , di vorced, , never , or living with a partner? 08/30/2023 AUDIT-C Answer Date Recorded Q1: How often do you have a drink containing alcohol? Never 08/29/2023 Q2: How many drinks containi ng alcohol do you have on a typical day when you are drinking? Patient does not drink Frequency of Binge Drinking Not on file 08/07 Overall Financial Resource Strain (CARDIA) Answe r Date Recorded How hard is it for you to pa y for the very basics like food, housing, medical care, and heating? Not very hard 08/30/2023 Hunger Vital Sign Answer Date Recorded Within the past 12 months, y ou worried that your food would run out before you got the money to buy more. Never true 08/30/19 Within the past 12 months, t he food you bought just didn't last and you didn't have money to get more. Never true 08/30/2023 PRAPARE - Transportation Answer Date Re corded In the past 12 months, has l ack of transportation kept you from medical appointments or from getting medications? No 08/07 In the past 12 months, has l ack of transportation kept you from meetings, work, or from getting things needed for daily living? No 08/30/2023 Housing Stability Vital Sign Answer Ramana e Recorded In the last 12 months, was t here a time when you were not able to pay the mortgage or rent on time? No 08/30/2023 In the last 12 months, how many places have you lived? 1 08/30/2023 In the last 12 months, was t here a time when you did not have a steady place to sleep or slept in a correction (including now)? No 08/30/2023 Personal Safety Answer Date Recorded Have you ever been in or are you currently in a harmful physical or emotional relationship or is someone making you feel afraid or unsafe? Denies 08/29/2023 Comments No Sex and Gender Information Value Date Recorded Sex Assigned at Not on file Legal Sex Female 8:28 PM OLDER WORKER SPECIALIST Gender Identity Not on file Sexual Orientation Not on file Last Filed Vital Signs Vital Sign Reading Time Taken Comments Blood Pressure 186/76 09/29/2024 11:03 AM OLDER WORKER SPECIALIST Pulse 82 09/29/2024 11:03 AM OLDER WORKER SPECIALIST Temperature 36.1 C (97 F) 10/08/2023 2:20 PM OLDER WORKER SPECIALIST Respiratory Rate 16 09/29/2024 11:03 AM OLDER WORKER SPECIALIST Oxygen Saturation 98% 09/29/2024 11:03 AM OLDER WORKER SPECIALIST Inhaled Oxygen Concentration - - Weight 59.9 kg (132 lb) 09/29/2024 11:03 AM OLDER WORKER SPECIALIST Height 165.1 cm (5' 5 ) 09/29/2024 11:03 AM OLDER WORKER SPECIALIST Body Mass Index 21.97 09/29/2024 11:03 AM OLDER WORKER SPECIALIST Plan of Treatment Not on file Medical Devices Implanted Type Area Paper Sales Representative Device Identifier Shelf Expiration Date Model / Serial / Lot Protagenle Inc Graft Quadfurcated Thoracic Collagen Coated Double Velour Hemashield [place] [id number] Woven Polyester [id number] - [id number] - [id number] Implanted:Qty: 1 on 07/27/2023 by Diogo Corona MD at [facility] [employer] 04/05/2027 [id number] / [id number] / Bard Peripheral Vascular Bard .25x.25in Reading Thk1.65mm Square Pledget Cardiovascular Ptfe [id number] - [id number] Implanted:Qty: 1 on 07/27/2023 by Diogo Corona MD at [facility] [employer] [id number] / / [employer] Patch Cardiovascular 0.8x8cm Nonpyrogenic Pfp0.8x8 - [id number] Implanted:Qty: 1 on 07/27/2023 by Diogo Corona MD at [facility] [employer] 02/18/2025 PFP0.8X8 / / [id number] [employer] Tag 31mm 15cm Active Control Conformable Thoracic Graft [id number] - [id number] - [id number] Implanted:Qty: 1 on 07/27/2023 by Diogo Corona MD at [facility] [employer]l [employer] 06/05/2024 [id number] / [id number] / Wl [employer] Tag 31mm 20cm Active Control Conformable Thoracic Graft [id number] - [id number] - [id number] Implanted:Qty: 1 on 07/27/2023 by Diogo Corona MD at [facility] [employer] 12/01/2025 [id number] / [id number] / [employer] Cryovein 6mm 80cm Allograft Saphenous Vein Graft Soft Tissue V010 80+ - [id number] - [id number] Implanted:Qty: 1 on 07/27/2023 by Diogo Corona MD at [facility] [employer] 03/15/2032 V010 80+ / [id number] / Maciel V[employer] Device Clsr Perclose Prostyle Sut-Mediatd Closure-Repair Sys 58354-60 - [id number] Implanted:Qty: 1 on 08/29/2023 by Diogo Corona MD at [facility] [employer] 05/05/2025 [id number] / / [id number] [employer] Device Clsr Perclose Prostyle Sut-Mediatd Closure-Repair Sys 76154-64 - [id number] Implanted:Qty: 1 on 08/29/2023 by Diogo Corona MD at [facility] Left: Groin [employer] 06/05/2025 [id number] / / [id number] [employer] Device Clsr Perclose Prostyle Sut-Mediatd Closure-Repair Sys 21123-71 - [id number] Implanted:Qty: 1 on 08/29/2023 by Diogo Corona MD at [facility] Left: Groin [employer] 06/05/2025 [id number] / / [id number] [employer] Device Clsr Perclose Prostyle Sut-Mediatd Closure-Repair Sys 62796-73 - [id number] Implanted:Qty: 1 on 08/29/2023 by Diogo Corona MD at [facility] [employer] 06/05/2025 [id number] / / [id number] [employer] Device Clsr Perclose Prostyle Sut-Mediatd Closure-Repair Sys 33075-30 - [id number] Implanted:Qty: 1 on 08/29/2023 at [facility] Right: Groin [employer] 05/05/2025 11160-39 / / [id number] Description:Failed to deploy Wl [employer] Viabahn 8mm 11mm 7fr 39mm 135cm Balloon Expandable Guidewire [id number] - [id number] - [id number] Implanted:Qty: 1 on 08/29/2023 by Diogo Corona MD at [facility] Wl [employer] 05/19/2026 [id number] / [id number] / Procedures Procedure Name Priority Date/Time Associated Diagnosis Comments CTA CHEST ABDOMEN PELVIS Schedule Routine, Read Routine (OP Routine) 09/29/2024 10:20 AM OLDER WORKER SPECIALIST Thoracoabdominal aortic aneurysm (TAAA) without rupture, unspecified part POCT CREATININE FOR CONTRAST EVALUATION Routine 09/29/2024 9:50 AM OLDER WORKER SPECIALIST from Last 3 Months Results * CTA Chest Abdomen Pelvis (09/29/2024 10:20 AM OLDER WORKER SPECIALIST) Anatomical Region Laterality Modality Body N/A Computed Tomogra phy 09/29/2024 11:3 5 AM OLDER WORKER SPECIALIST Impressions 09/30/2024 7:10 AM OLDER WORKER SPECIALIST 1. Stable postoperative changes from thoracoabdominal aortic endovascular repair with patent bypass grafts of the celiac and superior mesenteric artery. 2. No significant change in diameter of the stented descending thoracic aorta. No evidence of stent migration or endoleak. Dictated by: Darvin Larsen MD The radiology attending physician has personally reviewed this study, and had reviewed and/or edited this written report and agrees with it. Electronically signed by: Ibrahima Larson M.D. Narrative 09/30/2024 7:10 AM OLDER WORKER SPECIALIST EXAMINATION: 1. Computed tomography of the chest without and with intravenous contrast 2. Computed tomography of the abdomen and pelvis with intravenous contrast HISTORY: Thoracoabdominal aortic aneurysm status post repair TECHNIQUE: Transaxial computed tomographic images of the chest were obtained without intravenous contrast, followed by images of the chest, abdomen, and pelvis after the uneventful administration of 93 mL Opti-Ray 350 intravenous contrast according to the dissection protocol. COMPARISON: 10/04/2023 FINDINGS: Chest: Postoperative changes from endovascular repair of the thoracoabdominal aorta is present. The graft originates in the proximal descending thoracic aorta and extensive level of diaphragmatic hiatus. Additional postoperative changes are noted including bypass of the superior mesenteric and celiac arteries, with unchanged positioning of a stent in the proximal superior mesenteric artery. The celiac artery remains diminutive. Aortic measurements as follows: Sinuses of Valsalva: 30 x 31 x 34 mm Sinotubular junction: 31 x 30 mm Ascending aorta: 34 x 32 mm Mid arch: 29 x 27 mm Descending aorta: 41 x 38 mm Stented thoracic aorta: 32 x 31 mm. This is unchanged from prior when measured in a similar fashion and currently measuring 56.4 x 39.4 mm (was 58 x 44 mm on the prior examination). Overall, there is been no significant change in caliber of the aorta. Emphysema. No consolidation, effusion, or pneumothorax. Unchanged wedging of the T7 vertebral body. Abdomen/Pelvis: No suspicious liver lesion. Cholelithiasis. Renal cysts. No bowel obstruction. Fat-containing left paracentral ventral hernia. Multivessel calcified atherosclerosis. Procedure Note Ibrahima Larson MD - 09/30/2024 EXAMINATION: 1. Computed tomography of the chest without and with intravenous contrast 2. Computed tomography of the abdomen and pelvis with intravenous contrast HISTORY: Thoracoabdominal aortic aneurysm status post repair TECHNIQUE: Transaxial computed tomographic images of the chest were obtained without intravenous contrast, followed by images of the chest, abdomen, and pelvis after the uneventful administration of 93 mL Opti-Ray 350 intravenous contrast according to the dissection protocol. COMPARISON: 10/04/2023 FINDINGS: Chest: Postoperative changes from endovascular repair of the thoracoabdominal aorta is present. The graft originates in the proximal descending thoracic aorta and extensive level of diaphragmatic hiatus. Additional postoperative changes are noted including bypass of the superior mesenteric and celiac arteries, with unchanged positioning of a stent in the proximal superior mesenteric artery. The celiac artery remains diminutive. Aortic measurements as follows: Sinuses of Valsalva: 30 x 31 x 34 mm Sinotubular junction: 31 x 30 mm Ascending aorta: 34 x 32 mm Mid arch: 29 x 27 mm Descending aorta: 41 x 38 mm Stented thoracic aorta: 32 x 31 mm. This is unchanged from prior when measured in a similar fashion and currently measuring 56.4 x 39.4 mm (was 58 x 44 mm on the prior examination). Overall, there is been no significant change in caliber of the aorta. Emphysema. No consolidation, effusion, or pneumothorax. Unchanged wedging of the T7 vertebral body. Abdomen/Pelvis: No suspicious liver lesion. Cholelithiasis. Renal cysts. No bowel obstruction. Fat-containing left paracentral ventral hernia. Multivessel calcified atherosclerosis. IMPRESSION: 1. Stable postoperative changes from thoracoabdominal aortic endovascular repair with patent bypass grafts of the celiac and superior mesenteric artery. 2. No significant change in diameter of the stented descending thoracic aorta. No evidence of stent migration or endoleak. Dictated by: Darvin Larsen MD The radiology attending physician has personally reviewed this study, and had reviewed and/or edited this written report and agrees with it. Electronically signed by: Ibrahima Larson M.D. [facility] [place] MANAGER DEPARTMENT IMG CT PROCEDURES Final Result * POCT creatinine for contrast evaluation (09/29/2024 9:50 AM OLDER WORKER SPECIALIST) Creatinine, POC 1.3 0.6 - 1.5 mg/dL Comment:eGFR: 42 Blood 09/29/2024 9:50 AM OLDER WORKER SPECIALIST us Diogo Corona MD POINT OF CARE TEST ORDER BRAYDEN Final Result from Last 3 Months Insurance [employer] MEDICARE GOLD AETNA MEDICARE GOLD Advance Directives For more information, please contact: [phone] * Full Code (Latest Code Status on File) Date Activated Date Inactivated Comments 08/27/2023 8:24 PM 09/07/2023 7:17 PM * Full Code Date Activated Date Inactivated Comments 07/27/2023 2:56 PM 08/05/2023 5:34 PM * Full Code Date Activated Date Inactivated Comments 06/19/2023 10:41 AM 06/20/2023 12:24 PM Care Teams Ground Source Heat Pump Technician Relationship Specialty Start Date End Date Gustavo Hsieh MD [address] [facility] [address] [place] [address] PCP - General Internal Medicine 10/25/18 Alberto West MD [id number] [place] [address] Surgeon Vascular Surgery 02/09/22 Diogo Corona MD [address] [facility] [address] [place] [address] Consulting Physician Cardiothoracic Surgery 05/25/23
--- OUTSIDE RECORDS SUMMARY | 2024-11-13 08:22 | XMS_ITS | Clinical Summary ---
Author Organization [facility] Address [address] [place] [address] Care Team Providers Care Java Web Application Developer Name Role Phone Gustavo Hsieh DO Primary Care Provider [phone] Source Comments [facility],non-owned Affiliates and Associated Physician Practices is amultiple site organization consisting of ambulatory clinics and hospital sitesin [place], [place], [place] and [place]. This disclosure is being madepursuant to the Care Everywhere program and may not contain all information available regarding this patient. Last updated 18.[facility] Allergies No known active allergies Medications * Be aware that medications may not be up to date on this document. Alwaysverify current medications with the patient. Medication Sig Dispensed Refills Start Date End Date Status cyanocobalamin 100 MCG tablet Rx: Vitamin B12 100 MCG Tablet Active simvastatin (ZOCOR) 20 MG tablet 07/18/2020 Active Active Problems Problem Noted Date Diagnosed Date Closed fracture of right proximal humerus 2019 Immunizations Name Administration Dates Next Due INFLUENZA VACCINE, TRIV. (AF LURIA, FLUZONE TRIVALENT; 6MO+) (IIV3) 05/13/2014,04/09/2013 INFLUENZA VACCINE, ADJUVANTE D, TRIV. (FLUAD TRIVALENT; 65Y+) (AIIV3) 04/02/2019 INFLUENZA VACCINE, HIGH-DOSE , QUADR. (FLUZONE HIGH-DOSE QUADRIVALENT; 65Y+), 0.7 ML (HD-IIV4) 04/02/2020,04/22/2018,04/17/2017,2015,05/22/2015 Pneumococcal Pcv13 Conj 04/17/2017 Social History Tobacco Use Types Packs/Day Years Used Date Smoking Tobacco: Every Day Smokeless Tobacco: Never Sex and Gender Information Value Date Recorded Sex Assigned at Not on file Gender Identity Not on file Sexual Orientation Not on file Last Filed Vital Signs Vital Sign Reading Time Taken Comments Blood Pressure - - Pulse - - Temperature - - Respiratory Rate - - Oxygen Saturation - - Inhaled Oxygen Concentration - - Weight 66.7 kg (147 lb) 10/05/2020 8:57 AM SCHOOL SPEECH LANGUAGE PATHOLOGIST Height 167.6 cm (5' 6 ) 10/05/2020 8:57 AM SCHOOL SPEECH LANGUAGE PATHOLOGIST Body Mass Index 23.73 10/05/2020 8:57 AM SCHOOL SPEECH LANGUAGE PATHOLOGIST Plan of Treatment Health Maintenance Due Date Last Done Comments BONE DENSITY TESTING 1940 DTAP/TDAP/TD VACCINES (1 - Tdap) 1959 ZOSTER VACCINE (1 of 2) 1990 Respiratory Syncytial Virus (RSV) Vaccine Pt: or over 60 yrs (1 - 1-dose 75+ series) 2015 PNEUMOCOCCAL VACCINE 50+ (2 of 2 - PPSV23) 06/12/2017 04/17/2017 COVID-19 VACCINE (1 - season) 2024 DEPRESSION SCREENING 08/06/2024 MEDICARE AWV CALENDAR YEAR 2024 INFLUENZA VACCINE (Season Ended) 2025 04/02/2020, 04/02/2019, 04/22/2018, Additional history exists HEPATITIS B VACCINE Aged Out No longe r eligible based on patient's age to complete this topic HIB VACCINE Aged Out No longer eligi ble based on patient's age to complete this topic HPV VACCINE Aged Out No longer eligi ble based on patient's age to complete this topic MENINGOCOCCAL (Group B) VACCINE SHARED DECISION-MAKING Aged Out No longer eligible based on patient's age to complete this topic MENINGOCOCCAL GROUPS A/C/Y/W VACCINE Aged Out No longer eligible based on patient's age to complete this topic Care Teams Java Web Application Developer Relationship Specialty Start Date End Date Gustavo Hsieh DO [address] [facility] [address] [place] [address] PCP - General 11/23/09
--- OUTSIDE RECORDS SUMMARY | 2024-11-13 08:23 | XMS_ITS | Clinical Summary ---
Author Organization [facility] Address [address] [place] [address] Care Team Providers Care Child Care Attendant Name Role Phone Gustavo Hsieh MD Primary Care Provider [phone] Alberto West MD Unavailable [phone] Diogo Corona MD Unavailable [phone] Allergies No known active allergies Medications cyanocobalamin [...] Diagnosed Date Resolved Date Moderate malnutrition 08/02/20232023 Encounters Date Type Department Care Team Description 09/29/2024 9:45 AM PLUG CUTTER Office Visit Cardiovascular and Thoracic Surgery [address] [place] [address] Diogo Corona MD Thoracoabdominal aortic aneurysm (TAAA) without rupture, unspecified part (Primary Dx) 09/29/2024 9:10 AM PLUG CUTTER - 09/29/2024 11:59 PM PLUG CUTTER Hospital Encounter [facility] [address] [place] [address] Thoracoabdominal aortic aneurysm (TAAA) without rupture, unspecified part Discharge Disposition: Discharge to home or self care from Last 3 Months Immunizations Immunization Administration Dates Next Due Hib (PRP-T) 08/01/2023 Influenza Virus Vaccine Trivalent Mdv 04/02/2019 Influenza, Trivalent, Adjuva nted, Intramuscular 04/02/2019 Influenza, Trivalent, High D ose, Split, Preservative Free, Intramuscular 04/02/2019,04/22/2018,04/17/2017,04/25,05/22/2015 Influenza, Trivalent, IM (MDV) 05/13/2014,2012 Influenza, Unspecified 06/20/2023 Meningococcal B, OMV (Bexsero) 08/01/2023 Meningococcal Conjugate (Menveo) 08/01/2023 Pneumococcal Conjugate PCV 13 04/17/2017 Pneumococcal Conjugate Pcv20 08/01/2023 Surgical History Surgery Date Site/Laterality Comments LITHOTRIPSY TONSILLECTOMY ARTERIAL ANEURYSM REPAIR 07/27/2023 Medical History Medical History Date Comments Gallstone Hypercholesterolemia Colon polyps Thoracoabdominal aortic aneurysm Kidney stone Family History Medical History Relation Name Comments Heart disease Brother Colon cancer Father Stroke Mother Relation Name Status Comments Brother Father Mother Social History Tobacco Use Types Packs/Day Years [...] materials from doctor or pharmacy Never 10/08/2023 [facility] Utilities Answer Date Recorded In the past 12 months has th e [employer], gas, oil, or water company threatened to shut off services in your [...] week 08/30/2023 How often do you attend chur ch or rastafarian services? Never 08/30/2023 Do you belong to any clubs o r organizations such as christian groups, unions, fraternal or athletic groups, or [...] money to buy more. Never true 08/30/19 24 Within the past 12 months, t he [...] place to sleep or slept in a fpc (including now)? No 08/30/2023 Personal Safety Answer Date Recorded Have you ever been in or are you currently in a harmful physical or emotional relationship or is someone making you feel afraid or unsafe? Denies 08/29/2023 Comments No Sex and Gender Information Value Date Recorded Sex Assigned at Not on file Legal Sex Female 8:28 PM PLUG CUTTER Gender Identity Not on file Sexual Orientation Not on file Obstetrics History Last Filed Vital Signs Vital Sign Reading Time Taken Comments Blood Pressure 186/76 09/29/2024 11:03 AM PLUG CUTTER Pulse 82 09/29/2024 11:03 AM PLUG CUTTER Temperature 36.1 C (97 F) 10/08/2023 2:20 PM PLUG CUTTER Respiratory Rate 16 09/29/2024 11:03 AM PLUG CUTTER Oxygen Saturation 98% 09/29/2024 11:03 AM PLUG CUTTER Inhaled Oxygen Concentration - - Weight 59.9 kg (132 lb) 09/29/2024 11:03 AM PLUG CUTTER Height 165.1 cm (5' 5 ) 09/29/2024 11:03 AM PLUG CUTTER Body Mass Index 21.97 09/29/2024 11:03 AM PLUG CUTTER Plan of Treatment Health Maintenance Due Date Last Done Comments Depression Screening 1940 Osteoporosis Screening-Bone Density Scan 1940 DTaP/Tdap/Td Vaccine (1 - Tdap) 1951 Hepatitis B Screening 1958 Zoster Vaccine (1 of 2) 1990 Well Visit 65+ 2005 Influenza Vaccine (#1) 2024 , 04/02/2019, 04/02/2019, Additional history exists Fall Risk Assessment 09/07/2024 09/07/2023 Pneumococcal vaccine 65+ Completed 08/01/2023, 04/06 Medical Devices Implanted Type Area Clinical Social Worker Device Identifier Shelf Expiration Date Model / Serial / Lot GetPrioria Rob[employer] Graft Quadfurcated Thoracic Collagen Coated Double Velour Hemashield [place] [id number] Woven Polyester [id number] - [id number] - [id number] Implanted:Qty: 1 on 07/27/2023 by Diogo Corona MD at [facility] [employer] 04/05/2027 [id number] / [id number] / Bard Peripheral Vascular Bard .25x.25in [place] Thk1.65mm Square P[place]get Cardiovascular Ptfe [id number] - [id number] Implanted:Qty: 1 on 07/27/2023 by Diogo Corona MD at [facility] [employer]ipheral [employer] [id number] / / [employer]olife Inc Patch Cardiovascular 0.8x8cm Nonpyrogenic Pfp0.8x8 - [id number] Implanted:Qty: 1 on 07/27/2023 by Diogo Corona MD at [facility] [employer] 02/18/2025 PFP0.8X8 / / [id number] [employer] Turner Tag 31mm 15cm Active Control Conformable Thoracic Graft [id number] - [id number] - [id number] Implanted:Qty: 1 on 07/27/2023 by Diogo Corona MD at [facility] Wl [employer] 06/05/2024 [id number] / [id number] / Wl [employer] Turner Tag 31mm 20cm Active Control Conformable Thoracic Graft [id number] - [id number] - [id number] Implanted:Qty: 1 on 07/27/2023 by Diogo Corona MD at [facility] Wl [employer] 12/01/2025 [id number] / [id number] / Cry[employer] Inc Cryovein 6mm 80cm Allograft Saphenous Vein Graft Soft Tissue V010 80+ - [id number] - [id number] Implanted:Qty: 1 on 07/27/2023 by Diogo Corona MD at [facility] [employer] 03/15/2032 V010 80+ / [id number] / Maciel Vascular Device Clsr Perclose Prostyle Sut-Mediatd Closure-Repair Sys 65623-67 - [id number] Implanted:Qty: 1 on 08/29/2023 by Diogo Corona MD at [facility] [employer] 05/05/2025 [id number] / / [id number] Maciel V[employer] Device Clsr Perclose Prostyle Sut-Mediatd Closure-Repair Sys 08115-92 - [id number] Implanted:Qty: 1 on 08/29/2023 by Diogo Corona MD at [facility] Left: Groin [employer] 06/05/2025 [id number] / / [id number] Maciel V[employer] Device Clsr Perclose Prostyle Sut-Mediatd Closure-Repair Sys 50072-45 - [id number] Implanted:Qty: 1 on 08/29/2023 by Diogo Corona MD at [facility] Left: Groin [employer] 06/05/2025 [id number] / / [id number] Maciel Vascular Device Clsr Perclose Prostyle Sut-Mediatd Closure-Repair Sys 83836-98 - [id number] Implanted:Qty: 1 on 08/29/2023 by Diogo Corona MD at [facility] [employer] 06/05/2025 [id number] / / [id number] Maciel Vascular Device Clsr Perclose Prostyle Sut-Mediatd Closure-Repair Sys 47699-58 - [id number] Implanted:Qty: 1 on 08/29/2023 at [facility] Right: Groin [employer] 05/05/2025 [id number] / / [id number] Description:Failed to deploy Wl [employer] Turner Viabahn 8mm 11mm 7fr 39mm 135cm Balloon Expandable Guidewire [id number] - [id number] - [id number] Implanted:Qty: 1 on 08/29/2023 by Diogo Corona MD at [facility] Wl [employer] Inc 05/19/2026 [id number] / [id number] / Procedures Procedure Name Priority Date/Time Associated Diagnosis Comments CTA CHEST ABDOMEN PELVIS Schedule Routine, Read Routine (OP Routine) 09/29/2024 10:20 AM PLUG CUTTER Thoracoabdominal aortic aneurysm (TAAA) without rupture, unspecified part POCT CREATININE FOR CONTRAST EVALUATION Routine 09/29/2024 9:50 AM PLUG CUTTER from Last 3 Months Results * CTA Chest Abdomen Pelvis (09/29/2024 10:20 AM PLUG CUTTER) Anatomical Region Laterality Modality Body N/A Computed Tomogra phy 09/29/2024 11:3 5 AM PLUG CUTTER Impressions 09/30/2024 7:10 AM PLUG CUTTER 1. Stable postoperative changes from thoracoabdominal aortic [...] Ibrahima Larson M.D. Narrative 09/30/2024 7:10 AM PLUG CUTTER EXAMINATION: 1. Computed tomography of the chest [...] signed by: Ibrahima Larson M.D. Carina Nation NP IMG CT PROCEDURES Final Result * POCT creatinine for contrast evaluation (09/29/2024 9:50 AM PLUG CUTTER) Creatinine, POC 1.3 0.6 - 1.5 mg/dL Comment:eGFR: 42 Blood 09/29/2024 9:50 AM PLUG CUTTER Diogo Corona MD POINT OF CARE TEST ORDER BRAYDEN Final Result from Last [address] [facility] ([place], [place]) [employer] MEDICARE GOLD [address] [id number] [facility] MEDICARE [facility] Advance Directives For more information, please contact: [phone] * Full Code (Latest Code Status on File) Date Activated Date Inactivated Comments 08/27/2023 8:24 PM 09/07/2023 7:17 PM * Full Code Date Activated Date Inactivated Comments 07/27/2023 2:56 PM 08/05/2023 5:34 PM * Full Code Date Activated Date Inactivated Comments 06/19/2023 10:41 AM 06/20/2023 12:24 PM Care Teams Child Care Attendant Relationship Specialty Start Date End Date Gustavo Hsieh MD [address] [facility] [address] [place] [address] PCP - General Internal Medicine 10/25/18 Alberto West MD [address] [place] [address] Surgeon Vascular Surgery 02/09/22 Diogo Corona MD [address] [place] [address] Consulting Physician Cardiothoracic Surgery 05/25/23
[2024-11-13] MEDS: HYDROmorphone HCL INJ (*CRX) 1 MG/ML SYR 0.5 MG IV PUSH ×2 (08:26→11:58)
--- NOTE | 2024-11-13 09:31 | ECG_ITS ---
Test Date: 2024-11-13 10:17:08 Measurements Intervals Fackler Rate: 73 P: 52 FL: 169 QRS: 74 QRSD: 89 T: 53 QT: 375 QTc: 414 Interpretive Statements SINUS RHYTHM MINIMAL Q WAVES- INF/LAT LEADS BASELINE ARTIFACT- I, III, AVR, AVLA, VF, V2 BORDERLINE ECG No previous ECG available for comparison Electronically Signed On 11-13-2024 10:23:08 CDT by Jose Dinh D.O.
[2024-11-13 09:48] LABS: Basophils Absolute Auto 0.1 K/mm3 (0.0-0.1); Eosinophils Absolute Auto 0.4 K/mm3 (0-0.3); Eosinophils Percent Auto 2.7 % (0-4.4); Hematocrit 34.5 % (37.0-47.0); Immature Granulocyte Absolute 0.07 K/mm3 (0.00-0.031); Immature Granulocyte Percent A 0.5 % (0-0.5); Lymphocytes Absolute Auto 4.12 K/mm3 (0.9-3.2); Lymphocytes Percent Auto 28.1 % (18.3-44.2); Mean Corpuscular HGB Conc 31.9 g/dl (32-36); Mean Corpuscular Hemoglobin 30.3 pg (26-34); Mean Platelet Volume 10.8 fl (7.4-10.4); Monocytes Absolute Auto 1.3 K/mm3 (0.1-0.6); Monocytes Percent Auto 8.5 % (2.6-8.5); Neutrophils Absolute Auto 8.7 K/mm3 (1.3-6.7); Neutrophils Percent Auto 59.2 % (45.5-73.1); Nucleated Red Blood Cells Perc 0.1 % (0.0-0.2); Platelet Count Result 335 k/mm3 (150-375); Red Blood Count 3.63 M/mm3 (4.2-5.4); Red Cell Distribution Width 14.6 % (11.5-14.5); White Blood Count 14.7 K/mm3 (4.5-10.0)
[2024-11-13 10:00] LABS: Partial Thromboplastin Time 23.2 Seconds (22.3-36.8); Prothrombin Time 13.7 Seconds (11.1-14.7)
[2024-11-13 10:12] LABS: Alanine Aminotransferase 15 U/L (6-35); Albumin Level 4.4 g/dL (3.5-5.1); Alkaline Phosphatase 67 U/L (38-126); Anion Gap 12 mmol/L (4-12); Aspartate Amino Transferase 24 U/L (14-36); Bilirubin,Total 0.7 mg/dL (0.2-1.3); Blood Urea Nitrogen 26 mg/dL (7-17); Calcium 9.7 mg/dL (8.4-10.2); Carbon Dioxide 24 mmol/L (22-30); Chloride 105 mmol/L (98-107); Estimated CRCL calculation 28 ml/min; Estimated Glomerular Filt Rate 42; Glucose 101 mg/dL (65-110); Potassium 3.8 mmol/L (3.4-5.0); Sodium 141 mmol/L (137-145)
[2024-11-13 10:50] LABS: Add Urine Microscopic? YES; Appearance Urine Clear (Clear); Bacteria Urine None Seen /hpf; Bilirubin Urine Negative (Negative); Blood Urine Negative (Negative); Color Urine Yellow (Yellow); Glucose Urine UA Negative (Negative); Ketones Urine Trace mg/dL (Negative); Leukocyte Esterase Ur Negative LEU/UL (Negative); Nitrate Urine Negative (Negative); Non Pathogenic Casts 0-2; Protein Urine Trace mg/dL (Negative); RBC Urine 0-2 /hpf (0-2); Specific Grav Ur 1.021 (1.001-1.035); Squamous Epithelial Cell Urine None Seen /hpf (Few); WBC Urine 0-5 /hpf (0-3)
[2024-11-13 10:51] LABS: Influenza A QL RT-PCR Negative (Negative); Influenza B QL RT-PCR Negative (Negative); RSV RNA, RT-PCR Negative (Negative); SARS-CoV-2 RNA PCR Negative (Negative)
--- NOTE | 2024-11-13 12:31 | ED_ITS ---
HPI - General Adult General Chief complaint: Fall Stated complaint: fall Time Seen by Provider: 11/13/24 07:53 History of Present Illness HPI narrative: This is an 84-year-old female with neuropathy presenting after a ground level fall. She said she walked to the bathroom when she felt her right leg give out. She has neuropathy of that leg this is not occurrence. When she fell she landed on her right hip and caught herself on her right arm. She is currently complaining of pain of her right leg as well as the wrist. She denies head trauma or loss conscious. No fevers chills chest pain difficulty breathing abdominal pain nausea vomiting diarrhea urinary symptoms. Related Data Home Medications ?Medication ?Instructions ?Recorded ?Confirmed ?Last Taken ?Type ascorbate calcium (vitamin C) 500 500 mg PO DAILY 06/27/22 11/03/24 Unknown History mg tablet tramadol 50 mg tablet 50 mg PO DAILY 10/30/23 11/03/24 Unknown History cetirizine 10 mg capsule (Zyrtec) 10 mg PO DAILY 03/28/24 11/03/24 Unknown History cyanocobalamin (vitamin B-12) 1,000 mcg PO DAILY 03/28/24 11/03/24 Unknown History 1,000 mcg tablet Allergies Allergy/AdvReac Type Severity Reaction Status Date / Time No Known Allergies Allergy Verified 11/13/24 07:33 [facility] Past Medical History Medical History Humerus fracture Chronic GERD Family History Family History Mother Cerebrovascular accident Father Patient's father is Carcinoma of colon Sibling Family history of malignant neoplasm Social History Social History Smoking packs per day: 1 Smoking cigarettes per day: 20.0 Years smoked: 65 Smoking pack-years: 65.00 Smoking status: Former smoker (She did finally stop smoking last July) Tobacco type: cigarettes Second hand tobacco smoke exposure: No Smoking end date: 08/06/17 Alcohol intake: former Substance use: never Substance use type: does not use Do You Feel Safe in your Home?: Yes Lack of Transportation: No Lack of Food: Never True Current Housing: I Have Housing Concerned About Future Housing: No Difficulty Paying Gas/Electric Bills: No Difficulty Paying for Meds: No Currently Unemployed: No Education: High School Diploma/GED Difficulty w/ Childcare or Family Care: No Living arrangements: with family Gender identity (if verbalized by the patient): Female Spiritual care concerns: No Exam 2 Narrative: APPEARANCE: No apparent distress. Head: atraumatic. EYES: EOMI, NOSE: Atraumatic NECK: Trachea midline RESPIRATORY: No increased rate of breathing, CTAB CARDIOVASCULAR: RRR, ABDOMINAL: Non-distended MUSCULOSKELETAl: Focal exam of the right lower extremity revealed no shortening or rotation. Patient is exquisitely tender to range of motion of the right hip. Leg is neurovascularly intact. Focal exam of the right wrist reveals swelling and deformity of the distal forearm. General Service Technician strength intact. Cap refills less than 2 seconds. NEURO: Alert. Moving 4/4 extremities SKIN:: Warm, dry. Normal color PSYCHIATRIC: Normal affect Course Vital Signs Vital signs: Vital Signs Temperature 97.8 F 11/13/24 07:22 Pulse Rate 77 11/13/24 07:22 Respiratory Rate 13 11/13/24 07:22 Blood Pressure 143/58 H 11/13/24 07:22 Pulse Oximetry 99 11/13/24 07:22 Oxygen Delivery Room Air 11/13/24 07:22 Temperature 97.8 F 11/13/24 07:22 Pulse Rate 73 11/13/24 12:04 Respiratory Rate 18 11/13/24 12:04 Blood Pressure 118/45 L 11/13/24 12:04 Pulse Oximetry 94 11/13/24 12:04 Oxygen Delivery Room Air 11/13/24 07:22 Medical Decision Making [facility] Narrative Medical decision making narrative: -Course: A 84-year-old female presenting after mechanical fall. Found have an impacted right hip fracture and a distal radius fracture. Wrist was splinted. Case was discussed with Dr. Can. Patient will be admitted the hospital for orthopedic evaluation. -DDX includes but is not limited to: Hip fracture, neuropathy, wrist fracture, bony injury dehydration, UTI Vital Signs Vital Signs: Vital Signs Temperature 97.8 F 11/13/24 07:22 Pulse Rate 77 11/13/24 07:22 Respiratory Rate 13 11/13/24 07:22 Blood Pressure 143/58 H 11/13/24 07:22 Pulse Oximetry 99 11/13/24 07:22 Oxygen Delivery Room Air 11/13/24 07:22 Temperature 97.8 F 11/13/24 07:22 Pulse Rate 73 11/13/24 12:04 Respiratory Rate 18 11/13/24 12:04 Blood Pressure 118/45 L 11/13/24 12:04 Pulse Oximetry 94 11/13/24 12:04 Oxygen Delivery Room Air 11/13/24 07:22 Lab Data 11/13/24 09:41 11/13/24 09:41 Labs: Lab Results 11/13/24 11/13/24 11/13/24 Range/Units 09:41 10:11 10:36 WBC 14.7 H (4.5-10.0) K/mm3 RBC 3.63 L (4.2-5.4) M/mm3 Hgb 11.0 L (12.0-15.0) g/dL Hct 34.5 L (37.0-47.0) % MCV 95.0 (80-100) fl MCH 30.3 (26-34) pg MCHC 31.9 L (32-36) g/dl RDW 14.6 H (11.5-14.5) % Plt Count 335 (150-375) k/mm3 MPV 10.8 H (7.4-10.4) fl Immature Gran % (Auto) 0.5 (0-0.5) % Neut % (Auto) 59.2 (45.5-73.1) % Lymph % (Auto) 28.1 (18.3-44.2) % Warren % (Auto) 8.5 (2.6-8.5) % Eos % (Auto) 2.7 (0-4.4) % Baso % (Auto) 1.0 (0.2-1.2) % Lymph # (Auto) 4.12 H (0.9-3.2) K/mm3 Warren # (Auto) 1.3 H (0.1-0.6) K/mm3 Eos # (Auto) 0.4 H (0-0.3) K/mm3 Baso # (Auto) 0.1 (0.0-0.1) K/mm3 Abs Immat Gran (auto) 0.07 H (0.00-0.031) K/mm3 Absolute Neuts (auto) 8.7 H (1.3-6.7) K/mm3 Absolute Nucleated RBC 0.020 H (0.0-0.012) K/mm3 Nucleated RBC % 0.1 (0.0-0.2) % PT 13.7 (11.1-14.7) Seconds INR 1.0 APTT 23.2 (22.3-36.8) Seconds Sodium 141 (137-145) mmol/L Potassium 3.8 (3.4-5.0) mmol/L Chloride 105 (98-107) mmol/L Carbon Dioxide 24 (22-30) mmol/L Anion Gap 12 (4-12) mmol/L BUN 26 H (7-17) mg/dL Creatinine 1.23 H (0.7-1.0) mg/dL Estim Creat Clear Calc 28 ml/min Estimated GFR 42 L (59 - ) Glucose 101 (65-110) mg/dL Calcium 9.7 (8.4-10.2) mg/dL Total Bilirubin 0.7 (0.2-1.3) mg/dL AST 24 (14-36) U/L ALT 15 (6-35) U/L Alkaline Phosphatase 67 (38-126) U/L Total Protein 8.0 (6.3-8.2) g/dL Albumin 4.4 (3.5-5.1) g/dL Urine Color Yellow (Yellow) Urine Appearance Clear (Clear) Urine pH 6.0 (5.0-9.0) Ur Specific [place] 1.021 (1.001-1.035) Urine Protein Trace (Negative) mg/dL Urine Glucose (UA) Negative (Negative) mg/dL Urine Ketones Trace H (Negative) mg/dL Ur Blood (Man) Negative (Negative) Urine Nitrate Negative (Negative) Urine Bilirubin Negative (Negative) Urine Urobilinogen 1.0 (<2.0) mg/dL Leukocyte Esterase Rfl Negative (Negative) MÓNICA/UL Urine RBC 0-2 (0-2) /hpf Urine WBC 0-5 (0-3) /hpf Ur Squamous Epith Cells None seen (Few) /hpf Urine Bacteria None seen /hpf Urine Casts 0-2 Influenza A (RT-PCR) Negative (Negative) Influenza B (RT-PCR) Negative (Negative) RSV (RT-PCR) Negative (Negative) SARS-CoV-2 RNA (RT-PCR) Negative (Negative) Discharge Plan Discharge Clinical Impression: Hip fracture, Fracture of wrist Patient Disposition: Home Condition: Stable Instructions: Antibiotic Form Patient Language: Azeri Prescriptions: No Action gabapentin 300 mg capsule 300 mg PO QHS Qty: 90 1RF ascorbate calcium (vitamin C) 500 mg tablet 500 mg PO DAILY tramadol 50 mg tablet 50 mg PO DAILY cyanocobalamin (vitamin B-12) 1,000 mcg Tablet 1,000 mcg PO DAILY Zyrtec 10 mg Capsule 10 mg PO DAILY alendronate 70 mg tablet 70 mg PO WEEKLY Qty: 13 3RF clopidogrel 75 mg tablet 75 mg PO DAILY Qty: 90 3RF pantoprazole 40 mg tablet,delayed release (DR/EC) 40 mg PO QAM Qty: 90 3RF lisinopril 10 mg tablet 10 mg PO DAILY Qty: 100 3RF simvastatin 20 mg tablet See Rx Instructions .ROUTE .COMPLEX Qty: 90 2RF Dose Instruction: Take 1 tablet by mouth once daily Rx Instructions: Take 1 tablet by mouth once daily Follow-up/Referrals: Fernando Slaughter DO [Primary Care Provider] -
--- NOTE | 2024-11-13 12:46 | P.CONOP_ITS ---
Assessment and Plan Assessment and plan (1) Fracture of femoral neck, right: Code(s): S72.001A - Fracture of unspecified part of neck of right femur, initial encounter for closed fracture Status: Acute Assessment and Plan: Patient is a femoral neck fracture right. It is mildly displaced posteriorly. Recommended attempted open reduction internal fixation. This does not work may have to do a bipolar. I have discussed this with her risks, benefits, limitations, and alternatives in detail. Will proceed per her request. (2) Colles' fracture of right radius: Code(s): S52.531A - Colles' fracture of right radius, initial encounter for closed fracture Status: Acute Assessment and Plan: Patient has a right Colles fracture with mild displacement. She can wiggle her fingers but has pain with manipulation. Will attempt a reduction of her right wrist. Discussed. History of Present Illness HPI Consult date: 11/13/24 Chief complaint: fall Review of Systems 2 Musculoskeletal: Musculoskeletal: Reports arthralgias, Reports joint swelling and Reports stiffness Neurologic: Reports abnormal gait PMFSH Past Medical History Medical History Humerus fracture Chronic GERD Family History Family History Mother Cerebrovascular accident Father Patient's father is Carcinoma of colon Sibling Family history of malignant neoplasm Social History Social History Smoking packs per day: 1 Smoking cigarettes per day: 20.0 Years smoked: 65 Smoking pack-years: 65.00 Smoking status: Former smoker (She did finally stop smoking last July) Tobacco type: cigarettes Second hand tobacco smoke exposure: No Smoking end date: 08/06/17 Alcohol intake: former Substance use: never Substance use type: does not use Do You Feel Safe in your Home?: Yes Lack of Transportation: No Lack of Food: Never True Current Housing: I Have Housing Concerned About Future Housing: No Difficulty Paying Gas/Electric Bills: No Difficulty Paying for Meds: No Currently Unemployed: No Education: High School Diploma/GED Difficulty w/ Childcare or Family Care: No Living arrangements: with family Gender identity (if verbalized by the patient): Female Spiritual care concerns: No Meds Home Medications and Allergies Home Medications ?Medication ?Instructions ?Recorded ?Confirmed ?Type ascorbate calcium (vitamin C) 500 500 mg PO DAILY 06/27/22 11/03/24 History mg tablet tramadol 50 mg tablet 50 mg PO DAILY 10/30/23 11/03/24 History alendronate 70 mg tablet 70 mg PO WEEKLY #13 tabs 12/10/23 11/03/24 Rx clopidogrel 75 mg tablet 75 mg PO DAILY #90 tabs 12/11/23 11/03/24 Rx pantoprazole 40 mg tablet,delayed 40 mg PO QAM #90 tabs 12/11/23 11/03/24 Rx release cetirizine 10 mg capsule (Zyrtec) 10 mg PO DAILY 03/28/24 11/03/24 History cyanocobalamin (vitamin B-12) 1,000 mcg PO DAILY 03/28/24 11/03/24 History 1,000 mcg tablet lisinopril 10 mg tablet 10 mg PO DAILY #100 tabs 05/01/24 11/03/24 Rx simvastatin 20 mg tablet See Rx Instructions .Route 10/09/24 11/03/24 Rx .COMPLEX #90 tabs gabapentin 300 mg capsule 300 mg PO QHS #90 caps 11/03/24 11/03/24 Rx Allergies Allergy/AdvReac Type Severity Reaction Status Date / Time No Known Allergies Allergy Verified 11/13/24 07:33 Vital Signs Vital Signs - 24 hr 11/13/24 07:22 11/13/24 08:16 11/13/24 09:35 Temperature 97.8 F Pulse Rate 77 78 73 Respiratory Rate 13 19 18 Blood Pressure 143/58 H 117/61 Pulse Oximetry 99 94 Oxygen Delivery Room Air 11/13/24 10:04 11/13/24 10:19 11/13/24 12:04 Temperature Pulse Rate 77 76 73 Respiratory Rate 15 20 18 Blood Pressure 140/94 H 118/45 L Pulse Oximetry 98 94 94 Oxygen Delivery Exam 2 Narrative: Patient has pain with any manipulation of her right hip. Her leg is mildly shortened. She has also wrist deformity on the right. Pain with manipulation. Radiology Reports: Comments: XRay Report Signed Patient: Gia Leggett I EXAMINATION: XR hip RT 2V w AP pelvis DATE: 11/13/2024 09:20 INDICATION: Right hip pain post fall TECHNIQUE: Anteroposterior view of the right hip and pelvis and crosstable lateral view of the right hip were obtained. COMPARISON: 10/25/2023 FINDINGS: Posteriorly impacted subcapital fracture of the proximal right femur with mild posterior angulation. No other fractures identified. Mild to moderate osteoarthritis at the right hip and bilateral sacral iliac joints. Mild osteoarthritis at the left hip. Surgical clip in the left lower quadrant. IMPRESSION: 1. Posteriorly impacted subcapital fract ure of the proximal right femur. XRay Report Signed Patient: Gia Leggett I EXAMINATION: XR wrist RT min 3V DATE: 11/13/2024 09:20 INDICATION: Right wrist injury post fall TECHNIQUE: Posteroanterior, oblique and lateral views of the right wrist were obtained. COMPARISON: none FINDINGS: Diffuse osteopenia. Comminuted posteriorly impacted fracture of the metaphyseal region of the distal radius with 17 degrees dorsal tilt of the distal articular surface. No other fractures identified. 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 IMPRESSION: 1. Dorsally impacted comminuted distal m etaphyseal fracture of the right radius. 2. 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 2 Abdomen X-Ray 10/25/23 Hip X-Ray 10/08/20 Hip/Pelvis X-Ray 11/13/24 Knee X-Ray 11/13/24 Shoulder X-Ray 07/28/20 Wrist X-Ray 11/13/24 Lumbar Spine X-Ray 11/08/20 Results Labs 11/13/24 09:41 11/13/24 09:41 Labs: Abnormal lab results 11/13/24 11/13/24 Range/Units 09:41 10:36 WBC 14.7 H (4.5-10.0) K/mm3 RBC 3.63 L (4.2-5.4) M/mm3 Hgb 11.0 L (12.0-15.0) g/dL Hct 34.5 L (37.0-47.0) % MCHC 31.9 L (32-36) g/dl RDW 14.6 H (11.5-14.5) % MPV 10.8 H (7.4-10.4) fl Lymph # (Auto) 4.12 H (0.9-3.2) K/mm3 [place] # (Auto) 1.3 H (0.1-0.6) K/mm3 Eos # (Auto) 0.4 H (0-0.3) K/mm3 Abs Immat Gran (auto) 0.07 H (0.00-0.031) K/mm3 Absolute Neuts (auto) 8.7 H (1.3-6.7) K/mm3 Absolute Nucleated RBC 0.020 H (0.0-0.012) K/mm3 BUN 26 H (7-17) mg/dL Creatinine 1.23 H (0.7-1.0) mg/dL Estimated GFR 42 L (59 - ) Urine Ketones Trace H (Negative) mg/dL H & H 11/13/24 Range/Units 09:41 Hgb 11.0 L (12.0-15.0) g/dL Hct 34.5 L (37.0-47.0) % Coagulation 11/13/24 Range/Units 09:41 INR 1.0 All other labs normal.
--- NOTE | 2024-11-13 12:58 | P.HP_ITS ---
H&P: [facility] History of Present Illness Date/Time: 11/13/24 12:58 Chief Complaint: Ground Level Fall Narrative: 84 y/o F with PMH of thoracic aortic aneurysm s/p repair (07/2023), HLD, carotid artery stenosis, COPD, GERD, arthritis, dementia, and osteoporosis presents here with a ground level fall. The patient presents here via EMS from for further evaluation after a ground level fall. She reports this morning she was walking when her right leg became weak and gave out . She reports history of neuropathy affecting her right leg. She reports she fell backwards and onto her right hip and right arm. She denies head strike or loss of consciousness. Post fall she is reporting pain to her right hip, right arm, and right wrist. She denies any prodrome, presyncope symptoms prior to fall. She denies nausea, vomiting, diarrhea, fever, cough, shortness of breath, chest pain, or abdominal pain. Initial VS at presentation: 97.8? F, HR 77, R 13, 143/58, and 99% on RA. ED workup showed: WBC 14.7, hemoglobin 11.0, normal coags, creatinine 1.23 and GFR 42 (at baseline), UA showed trace ketones otherwise unremarkable, viral PCR negative. 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 Hip/pelvic XR showed posterior impacted subcapital fracture of the proximal right femur. Knee XR showed mild tricompartmental osteoarthritis of the right knee, no joint effusion or acute osseous abnormality. 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 CXR showed no acute process, COPD. Review of Systems Review of Systems: All systems reviewed & are unremarkable except as noted in HPI and below [facility] Past Medical History Medical History (Updated 11/13/24 @ 13:40 by Zhanna Borden, JASON) Former smoker Hx of carotid artery stenosis Hyperlipidemia Osteoporosis Chronic GERD Neuropathy Dementia COPD (chronic obstructive pulmonary disease) History of thoracoabdominal aortic aneurysm (TAAA) Humerus fracture Surgical History Surgical History History of thoracic aortic aneurysm repair Family History Family History Mother Cerebrovascular accident Father Patient's father is Carcinoma of colon Sibling Family history of malignant neoplasm Social History Social History Smoking packs per day: 1 Smoking cigarettes per day: 20.0 Years smoked: 65 Smoking pack-years: 65.00 Smoking status: Former smoker (She did finally stop smoking last July) Tobacco type: cigarettes Second hand tobacco smoke exposure: No Smoking end date: 08/06/17 Alcohol intake: former Substance use: never Substance use type: does not use Do You Feel Safe in your Home?: Yes Lack of Transportation: No Lack of Food: Never True Current Housing: I Have Housing Concerned About Future Housing: No Difficulty Paying Gas/Electric Bills: No Difficulty Paying for Meds: No Currently Unemployed: No Education: High School Diploma/GED Difficulty w/ Childcare or Family Care: No Living arrangements: with family Gender identity (if verbalized by the patient): Female Spiritual care concerns: No Meds Home Medications and Allergies Home Medications ?Medication ?Instructions ?Recorded ?Confirmed ?Type alendronate 70 mg tablet 70 mg PO WEEKLY #13 tabs 12/10/23 11/13/24 Rx clopidogrel 75 mg tablet 75 mg PO DAILY #90 tabs 12/11/23 11/13/24 Rx pantoprazole 40 mg tablet,delayed 40 mg PO QAM #90 tabs 12/11/23 11/13/24 Rx release lisinopril 10 mg tablet 10 mg PO DAILY #100 tabs 05/01/24 11/13/24 Rx simvastatin 20 mg tablet See Rx Instructions .Route 10/09/24 11/13/24 Rx .COMPLEX #90 tabs aspirin 81 mg tablet,delayed 81 mg PO DAILY 11/13/24 11/13/24 History release cyanocobalamin (vitamin B-12) 100 100 mcg PO DAILY 11/13/24 11/13/24 History mcg tablet gabapentin 100 mg capsule 100 mg PO HS 11/13/24 11/13/24 History Allergies Allergy/AdvReac Type Severity Reaction Status Date / Time No Known Allergies Allergy Verified 11/13/24 07:33 Vital Signs Vital Signs - 24 hr 11/13/24 07:22 11/13/24 08:16 11/13/24 09:35 Temperature 97.8 F Pulse Rate 77 78 73 Respiratory Rate 13 19 18 Blood Pressure 143/58 H 117/61 Pulse Oximetry 99 94 Oxygen Delivery Room Air 11/13/24 10:04 11/13/24 10:19 11/13/24 12:04 Temperature Pulse Rate 77 76 73 Respiratory Rate 15 20 18 Blood Pressure 140/94 H 118/45 L Pulse Oximetry 98 94 94 Oxygen Delivery Exam Const: General: comfortable and no acute distress Other: , female, elderly, nontoxic appearance HENMT: Face/Nose/Sinus: Normal nares present Mouth: Yes moist mucous membranes Eyes: General: appearance normal, both eyes and all related structures Sclera: sclerae normal Pupils: Equal, round and reactive pupils present EOM: EOMs intact bilaterally Resp: Effort & Inspection: normal respiratory effort Auscultation: clear to auscultation bilaterally Cardio: Rate: regular rate Rhythm: regular rhythm Other: S1-S2 present without murmur, rub, ectopy GI: Other: Abdomen soft, nondistended, nontender. Normoactive bowel sounds in all quadrants. Skin: General skin exam: normal color and no rashes or lesions noted Wounds: no wounds Neuro: Speech: normal speech Motor exam (neuro): 5/5 motor strength present throughout Sensory Exam: normal sensation Other: A&O x3-4, some short term memory difficulty requiring redirection Extrem: General: normal to inspection Other: splint to RUE, fingers warm, and dry. cap refill brisk. DP pulse strong bilaterally. right hip tenderness with palpation. Psych: Mental Status: mental status grossly normal Affect: normal affect Other: fair insight and judgement, pleasant. H&P: Results Labs Labs: Short CBC 11/13/24 Range/Units 09:41 WBC 14.7 H (4.5-10.0) K/mm3 Hgb 11.0 L (12.0-15.0) g/dL Hct 34.5 L (37.0-47.0) % Plt Count 335 (150-375) k/mm3 BMP 11/13/24 09:41 Sodium 141 Potassium 3.8 Chloride 105 Carbon Dioxide 24 BUN 26 H Creatinine 1.23 H Glucose 101 Calcium 9.7 Liver Function 11/13/24 Range/Units 09:41 Total Bilirubin 0.7 (0.2-1.3) mg/dL AST 24 (14-36) U/L ALT 15 (6-35) U/L Alkaline Phosphatase 67 (38-126) U/L Albumin 4.4 (3.5-5.1) g/dL Urine 11/13/24 Range/Units 10:36 Urine Color Yellow (Yellow) Urine Appearance Clear (Clear) Urine pH 6.0 (5.0-9.0) Ur Specific [place] 1.021 (1.001-1.035) Urine Protein Trace (Negative) mg/dL Urine Glucose (UA) Negative (Negative) mg/dL Assessment and Plan Assessment and plan (1) Fracture of femoral neck, right: Qualifiers: Encounter type: initial encounter Fracture type: closed Qualified Code(s): S72.001A - Fracture of unspecified part of neck of right femur, initial encounter for closed fracture Code(s): S72.001A - Fracture of unspecified part of neck of right femur, initial encounter for closed fracture Status: Acute Assessment and Plan: Hip/pelvic XR showed a posterior impacted subcapital fracture of the proximal right femur. Orthopedics consulted, Juan José WALKER. provider recommended open reduction internal fixation, if unsuccessful may try bipolar. Patient is agreeable to surgical management. Analgesics and antiemetics p.r.n.. Monitor labs. PT/OT evaluation and treatment postop and care coordination postop for possible rehab. (2) Colles' fracture of right radius: Qualifiers: Encounter type: initial encounter Fracture type: closed Qualified Code(s): S52.531A - Colles' fracture of right radius, initial encounter for closed fracture Code(s): S52.531A - Colles' fracture of right radius, initial encounter for closed fracture Status: Acute Assessment and Plan: R wrist XR showed a dorsally impacted comminuted distal metaphyseal fracture of the right radius. Orthopedics consulted, recommended attempted reduction of right wrist. Brace in place. Analgesics p.r.n.. PT/OT/care coordination consulted for possible rehab. Plan Diet: NPO GI Prophylaxis: Not currently indicated DVT Prophylaxis: SCDs Lines: Peripheral Code Status: Full code Quality VTE Prophylaxis VTE prophylaxis: mechanical ordered Hospitalist [facility] Advance Care Plan I have confirmed that the patient's Advanced Care Plan is present, code status is documented, or surrogate decision maker is listed in patient medical record.: Yes Medication Reconciliation I have utilized all available resources to obtain, update and review the patients current medications (includes all prescriptions, OTC, herbals, cannabis, and nutritional supplements).: Yes
--- NOTE | 2024-11-13 13:25 | PC.NURSE ---
Report given to Gabrielle.
--- NOTE | 2024-11-13 13:55 | WPDHPUPDATE1 ---
History and Physical Update Update Date/Time: 11/13/24 13:55 History and Physical has been reviewed, including an updated exam of the patient. There are NO changes in the patient's condition. Risks, benefits, and alternatives have been discussed and questions answered. Patient agrees to proceed with procedure. Discussed pinning vs replacement of the RIGHT hip. She has multiple medical problems making surgery risky. Discussed. Discussed closed reduction of her RIGHT wrist. Will cast as well.
[2024-11-13] MEDS: TRANEXAMIC ACID 1,000MG/ISO100 1,000 MG/100 ML BAG 200 MG IVPB (14:00)
--- NOTE | 2024-11-13 14:01 | P.PNAN_ITS ---
Anes - Initial Pre Proc Eval Procedure: Operation Date: 11/13/24 13:30 Proposed Procedures p Right Hip Pinning with Cannulated Screws, - Vincent Can MD s Left Wrist Closed Reduction with Cast Application - Vincent Can MD Date/Time: 11/13/24 14:01 Surgeon: Uriah Mejia MD Pre Op Diagnosis: Hip fracture Patient Data Age: 84 Gender: F Height: 1.68 m Weight: 66.6 kg Last Vital Signs Temp 97.8 F 11/13/24 07:22 Pulse 76 11/13/24 12:31 Resp 19 11/13/24 12:31 BP 131/65 11/13/24 12:31 Pulse Ox 99 11/13/24 12:31 O2 Del Method Room Air 11/13/24 07:22 Allergies Allergy/AdvReac Type Severity Reaction Status Date / Time No Known Allergies Allergy Verified 11/13/24 07:33 Home Medications ?Medication ?Instructions ?Recorded ?Confirmed ?Type alendronate 70 mg tablet 70 mg PO WEEKLY #13 tabs 12/10/23 11/13/24 Rx clopidogrel 75 mg tablet 75 mg PO DAILY #90 tabs 12/11/23 11/13/24 Rx pantoprazole 40 mg tablet,delayed 40 mg PO QAM #90 tabs 12/11/23 11/13/24 Rx release lisinopril 10 mg tablet 10 mg PO DAILY #100 tabs 05/01/24 11/13/24 Rx simvastatin 20 mg tablet See Rx Instructions .Route 10/09/24 11/13/24 Rx .COMPLEX #90 tabs aspirin 81 mg tablet,delayed 81 mg PO DAILY 11/13/24 11/13/24 History release cyanocobalamin (vitamin B-12) 100 100 mcg PO DAILY 11/13/24 11/13/24 History mcg tablet gabapentin 100 mg capsule 100 mg PO HS 11/13/24 11/13/24 History Laboratory Tests 11/13/24 11/13/24 11/13/24 09:41 10:11 10:36 WBC 14.7 H K/mm3 (4.5-10.0) RBC 3.63 L M/mm3 (4.2-5.4) Hgb 11.0 L g/dL (12.0-15.0) Hct 34.5 L % (37.0-47.0) MCV 95.0 fl (80-100) MCH 30.3 pg (26-34) MCHC 31.9 L g/dl (32-36) RDW 14.6 H % (11.5-14.5) Plt Count 335 k/mm3 (150-375) MPV 10.8 H fl (7.4-10.4) Immature Gran % (Auto) 0.5 % (0-0.5) Neut % (Auto) 59.2 % (45.5-73.1) Lymph % (Auto) 28.1 % (18.3-44.2) [place] % (Auto) 8.5 % (2.6-8.5) Eos % (Auto) 2.7 % (0-4.4) Baso % (Auto) 1.0 % (0.2-1.2) Lymph # (Auto) 4.12 H K/mm3 (0.9-3.2) [place] # (Auto) 1.3 H K/mm3 (0.1-0.6) Eos # (Auto) 0.4 H K/mm3 (0-0.3) Baso # (Auto) 0.1 K/mm3 (0.0-0.1) Abs Immat Gran (auto) 0.07 H K/mm3 (0.00-0.031) Absolute Neuts (auto) 8.7 H K/mm3 (1.3-6.7) Absolute Nucleated RBC 0.020 H K/mm3 (0.0-0.012) Nucleated RBC % 0.1 % (0.0-0.2) PT 13.7 Seconds (11.1-14.7) INR 1.0 APTT 23.2 Seconds (22.3-36.8) Sodium 141 mmol/L (137-145) Potassium 3.8 mmol/L (3.4-5.0) Chloride 105 mmol/L (98-107) Carbon Dioxide 24 mmol/L (22-30) Anion Gap 12 mmol/L (4-12) BUN 26 H mg/dL (7-17) Creatinine 1.23 H mg/dL (0.7-1.0) Estim Creat Clear Calc 28 ml/min Estimated GFR 42 L (59 - ) Glucose 101 mg/dL (65-110) Calcium 9.7 mg/dL (8.4-10.2) Total Bilirubin 0.7 mg/dL (0.2-1.3) AST 24 U/L (14-36) ALT 15 U/L (6-35) Alkaline Phosphatase 67 U/L (38-126) Total Protein 8.0 g/dL (6.3-8.2) Albumin 4.4 g/dL (3.5-5.1) Urine Color Yellow (Yellow) Urine Appearance Clear (Clear) Urine pH 6.0 (5.0-9.0) Ur Specific [place] 1.021 (1.001-1.035) Urine Protein Trace mg/dL (Negative) Urine Glucose (UA) Negative mg/dL (Negative) Urine Ketones Trace H mg/dL (Negative) Ur Blood (Man) Negative (Negative) Urine Nitrate Negative (Negative) Urine Bilirubin Negative (Negative) Urine Urobilinogen 1.0 mg/dL (<2.0) Leukocyte Esterase Rfl Negative MÓNICA/UL (Negative) Urine RBC 0-2 /hpf (0-2) Urine WBC 0-5 /hpf (0-3) Ur Squamous Epith Cells None seen /hpf (Few) Urine Bacteria None seen /hpf Urine Casts 0-2 Influenza A (RT-PCR) Negative (Negative) Influenza B (RT-PCR) Negative (Negative) RSV (RT-PCR) Negative (Negative) SARS-CoV-2 RNA (RT-PCR) Negative (Negative) Patient hx anesthesia problems: none Family hx anesthesia problems: none Results Review: All pre-operative results and documents have been reviewed as part of the pre- operative evaluation. [facility] Past Medical History Medical History Former smoker Hx of carotid artery stenosis Hyperlipidemia Osteoporosis Chronic GERD Neuropathy Dementia COPD (chronic obstructive pulmonary disease) History of thoracoabdominal aortic aneurysm (TAAA) Humerus fracture Surgical History Surgical History History of thoracic aortic aneurysm repair Family History Family History Mother Cerebrovascular accident Father Patient's father is Carcinoma of colon Sibling Family history of malignant neoplasm Social History Social History Smoking packs per day: 1 Smoking cigarettes per day: 20.0 Years smoked: 65 Smoking pack-years: 65.00 Smoking status: Former smoker (She did finally stop smoking last July) Tobacco type: cigarettes Second hand tobacco smoke exposure: No Smoking end date: 08/06/17 Alcohol intake: former Substance use: never Substance use type: does not use Do You Feel Safe in your Home?: Yes Lack of Transportation: No Lack of Food: Never True Current Housing: I Have Housing Concerned About Future Housing: No Difficulty Paying Gas/Electric Bills: No Difficulty Paying for Meds: No Currently Unemployed: No Education: High School Diploma/GED Difficulty w/ Childcare or Family Care: No Living arrangements: with family Gender identity (if verbalized by the patient): Female Spiritual care concerns: No Anes - Eval Final PreProcedure Day of Procedure 11/13/24 14:01 Patient weight: normal Lungs: normal air movement Airway: Mallampati scale class II and special considerations (Edentulous. ) Neurological: alert and oriented Last oral intake: >/= 8 hours ASA classification: IV Emergent: no Anesthetic plan: proceed Anesthesia type and monitoring: general LMA and standard monitoring Results Review: All pre-operative results and documents have been reviewed as part of the pre- operative evaluation. Hx of COPD, heavy smoker, quit 07/2024. Hx of AAA repaired 2023. HTN, hyperlipidemia. Carotid US from 2019 reviewed. Informed Consent: The patient's anesthetic plan and its attendant risks and benefits were discussed with the patient/family/POA. Questions were solicited and answers provided to the satisfaction of the patient/family/POA.
[2024-11-13] MEDS: ceFAZolin 2 GM/D5W 50 ML 2 GM/50 ML BAG IVPB ×2 (14:22→21:36)
--- NOTE | 2024-11-13 15:22 | W.PM.PROC2 ---
Procedure Note - Detailed Date of Procedure 11/13/24 Pre-op Diagnosis 1) Right Colles Fracture 2) Right Femoral Neck fracture Post-op Diagnosis Same Procedure Performed 1) Closed reduction and casting Right Wrist 2) Pinning Right Hip Fracture Surgeon Vincent Can MD Anesthesia General Indications Pain and Fracture Description of Procedure Patient brought to operating room #8. A general anesthetic was administered. I first began with the wrist and gently manipulated the wrist back into an anatomic position. I then placed her in a short-arm cast. X-rays in the AP and lateral planes demonstrate near anatomic alignment. She was then transferred to the fracture table and the fracture was reduced. She had posterior angulation of the head. This was reduced and then after sterile prep and drape 3 pins drilled into the center of the head. 80, 80, and 90. X-rays in the AP and lateral plane demonstrate good alignment of the fracture the pins to be nicely within the head in good position. The wound irrigated, hemostasis obtained and closed with 2. Vicryl 2-0 Vicryl and neil. Sterile dressing applied patient tolerated procedure well. Implants Synthesis Pins Estimated Blood Loss 50 Drains No Packing No Pathology None sent Complications No immediate complications Condition Stable Disposition PACU [facility] Billing Surgery - Charge Forward: Surgery Billing ([id number] Hip Pinning [id number] Colles FX)
[2024-11-13] MEDS: LACTATED RINGERS 1,000 ML 30 ML IV CONT (15:39)
[2024-11-13] MEDS: fentaNYL CITRATE INJ (*CRX) 100 MCG/2 ML VIAL 25 MCG IV PUSH ×4 (16:00→16:15)
--- OUTSIDE RECORDS SUMMARY | 2024-11-13 17:29 | XMS_ITS | Clinical Summary ---
Author Organization [facility] Address [facility] [place] [address] Care Team Providers Care Hairspring Studder Name Role Phone Gustavo Hsieh MD Primary Care Provider [phone] Allergies No known active allergies Medications simvastatin 20 MG tablet Take 20 mg by mouth nightly at bedtime. 01/24/2018 Active Active Problems Problem Noted Date Diagnosed Date SIRS (systemic inflammatory response syndrome) ([facility]) 04/09/2018 Pure hypercholesterolemia 04/09/2018 Acute cystitis 04/09/2018 [...] Comments Blood Pressure 111/54 08/27/2023 5:40 PM ASSEMBLY PERSON Pulse 84 08/27/2023 5:40 PM ASSEMBLY PERSON Temperature 36.6 C (97.9 F) 08/27/2023 4:13 AM ASSEMBLY PERSON Respiratory Rate 19 08/27/2023 5:40 PM ASSEMBLY PERSON Oxygen Saturation 95% 08/27/2023 5:45 PM ASSEMBLY PERSON Inhaled Oxygen Concentration - - Weight 55.2 kg (121 lb 11.1 oz) 08/27/2023 4:13 AM ASSEMBLY PERSON Height 167.6 cm (5' 6 ) 08/27/2023 4:13 AM ASSEMBLY PERSON Body Mass Index 19.64 08/27/2023 4:13 AM ASSEMBLY PERSON Plan of Treatment Health Maintenance Due Date [...] 12:15 PM 04/10/2018 1:22 PM Care Teams Hairspring Studder Relationship Specialty Start Date End Date Gustavo Hsieh MD [address] [place] [address] (work) PCP - General INTERNAL MEDICINE 04/09/18
--- OUTSIDE RECORDS SUMMARY | 2024-11-13 17:29 | XMS_ITS | Encounter Summary ---
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
--- OUTSIDE RECORDS SUMMARY | 2024-11-13 17:29 | XMS_ITS | Clinical Summary ---
Author Organization [facility] Address [address] [place] [address] Care Team Providers Care Rug Frame Mounter Name Role Phone Gustavo Hsieh MD Primary Care Provider [phone] Alberto West MD Unavailable [phone] Diogo Corona MD Unavailable [phone] Allergies No known active allergies Medications cyanocobalamin [...] Department Care Team Description 09/29/2024 9:45 AM BUN ICER Office Visit Cardiovascular and Thoracic Surgery [address] [facility] [address] [place] [address] Diogo Corona MD Thoracoabdominal aortic aneurysm (TAAA) without rupture, unspecified part (Primary Dx) 09/29/2024 9:10 AM BUN ICER - 09/29/2024 11:59 PM BUN ICER Hospital Encounter [facility] [address] [place] [address] Thoracoabdominal aortic aneurysm (TAAA) without rupture, unspecified [...] materials from doctor or pharmacy Never 10/08/2023 [facility] Utilities Answer Date Recorded In the past 12 months has th e [employer], gas, oil, or water company threatened to [...] often do you attend chur ch or pentecostal services? Never 08/30/2023 Do you belong to any clubs o r organizations such as anabaptist groups, unions, fraternal or athletic groups, or [...] place to sleep or slept in a intermediate (including now)? No 08/30/2023 Personal Safety Answer Date Recorded Have you ever been in or are you currently in a harmful physical or emotional relationship or is someone making you feel afraid or unsafe? Denies 08/29/2023 Comments No Sex and Gender Information Value Date Recorded Sex Assigned at Not on file Legal Sex Female 8:28 PM BUN ICER Gender Identity Not on file Sexual Orientation Not on file Obstetrics History Last Filed Vital Signs Vital Sign Reading Time Taken Comments Blood Pressure 186/76 09/29/2024 11:03 AM BUN ICER Pulse 82 09/29/2024 11:03 AM BUN ICER Temperature 36.1 C (97 F) 10/08/2023 2:20 PM BUN ICER Respiratory Rate 16 09/29/2024 11:03 AM BUN ICER Oxygen Saturation 98% 09/29/2024 11:03 AM BUN ICER Inhaled Oxygen Concentration - - Weight 59.9 kg (132 lb) 09/29/2024 11:03 AM BUN ICER Height 165.1 cm (5' 5 ) 09/29/2024 11:03 AM BUN ICER Body Mass Index 21.97 09/29/2024 11:03 AM BUN ICER Plan of Treatment Health Maintenance Due Date [...] 08/01/2023, 04/06 Medical Devices Implanted Type Area Minister Assistant Device Identifier Shelf Expiration Date Model / Serial / Lot [employer] Graft Quadfurcated Thoracic Collagen Coated Double Velour Hemashield [place] [id number] Woven Polyester [id number] - [id number] - [id number] Implanted:Qty: 1 on 07/27/2023 by Diogo Corona MD at [facility] [employer] 04/05/2027 [id number] / [id number] / Bard Peripheral Vascular Bard .25x.25in [place] Thk1.65mm Square Pledget Cardiovascular Ptfe [id number] - [id number] Implanted:Qty: 1 on 07/27/2023 by Diogo Corona MD at [facility] Bard Peripheral Vascular [id number] / / Cryolife Inc Patch Cardiovascular 0.8x8cm Nonpyrogenic Pfp0.8x8 - [id number] Implanted:Qty: 1 on 07/27/2023 by Diogo Corona MD at [facility] [employer] Inc 02/18/2025 PFP0.8X8 / / [id number] [employer] Iron Mountain Tag 31mm 15cm Active Control Conformable Thoracic Graft [id number] - [id number] - [id number] Implanted:Qty: 1 on 07/27/2023 by Diogo Corona MD at [facility] Wl [employer] 06/05/2024 [id number] / [id number] / Wl [employer] Iron Mountain Tag 31mm 20cm Active Control Conformable Thoracic Graft [id number] - [id number] - [id number] Implanted:Qty: 1 on 07/27/2023 by Diogo Corona MD at [facility] Wl [employer] 12/01/2025 [id number] / [id number] / Cryolife Inc Cryovein 6mm 80cm Allograft Saphenous Vein Graft Soft Tissue V010 80+ - [id number] - [id number] Implanted:Qty: 1 on 07/27/2023 by Diogo Corona MD at [facility] [employer] 03/15/2032 V010 80+ / [id number] / Maciel Vascular Device Clsr Perclose Prostyle Sut-Mediatd Closure-Repair Sys 58159-39 - [id number] Implanted:Qty: 1 on 08/29/2023 by Diogo Corona MD at [facility] [employer] 05/05/2025 [id number] -03 / / [id number] Maciel Vascular Device Clsr Perclose Prostyle Sut-Mediatd Closure-Repair Sys 18609-66 - [id number] Implanted:Qty: 1 on 08/29/2023 by Diogo Corona MD at [facility] Left: Groin [employer] 06/05/2025 [id number] / / [id number] Maciel Vascular Device Clsr Perclose Prostyle Sut-Mediatd Closure-Repair Sys 08846-83 - [id number] Implanted:Qty: 1 on 08/29/2023 by Diogo Corona MD at [facility] Left: Groin [employer] 06/05/2025 [id number] / / [id number] Maciel Vascular Device Clsr Perclose Prostyle Sut-Mediatd Closure-Repair Sys 01369-43 - [id number] Implanted:Qty: 1 on 08/29/2023 by Diogo Corona MD at [facility] [employer] 06/05/2025 [id number] / / [id number] Maciel Vascular Device Clsr Perclose Prostyle Sut-Mediatd Closure-Repair Sys 67931-06 - [id number] Implanted:Qty: 1 on 08/29/2023 at [facility] Right: Groin [employer] 05/05/2025 [id number] / / [id number] Description:Failed to deploy Wl [employer] Iron Mountain Viabahn 8mm 11mm 7fr 39mm 135cm Balloon Expandable Guidewire [id number] - [id number] - [id number] Implanted:Qty: 1 on 08/29/2023 by Diogo Corona MD at [facility] Wl [employer] 05/19/2026 [id number] / [id number] / Procedures Procedure Name Priority Date/Time Associated Diagnosis Comments CTA CHEST ABDOMEN PELVIS Schedule Routine, Read Routine (OP Routine) 09/29/2024 10:20 AM BUN ICER Thoracoabdominal aortic aneurysm (TAAA) without rupture, unspecified part POCT CREATININE FOR CONTRAST EVALUATION Routine 09/29/2024 9:50 AM BUN ICER from Last 3 Months Results * CTA Chest Abdomen Pelvis (09/29/2024 10:20 AM BUN ICER) Anatomical Region Laterality Modality Body N/A Computed Tomogra phy 09/29/2024 11:3 5 AM BUN ICER Impressions 09/30/2024 7:10 AM BUN ICER 1. Stable postoperative changes from thoracoabdominal aortic [...] Ibrahima Larson M.D. Narrative 09/30/2024 7:10 AM BUN ICER EXAMINATION: 1. Computed tomography of the chest [...] creatinine for contrast evaluation (09/29/2024 9:50 AM BUN ICER) Creatinine, POC 1.3 0.6 - 1.5 mg/dL Comment:eGFR: 42 Blood 09/29/2024 9:50 AM BUN ICER Diogo Corona MD POINT OF CARE TEST ORDER BRAYDEN Final Result from Last 3 Months Insurance [facility] AETNA MEDICARE GOLD [address] [id number] [facility] MEDICARE [facility] Advance Directives For more information, please contact: [phone] * Full Code (Latest Code Status on File) Date Activated Date Inactivated Comments 08/27/2023 8:24 PM 09/07/2023 7:17 PM * Full Code Date Activated Date Inactivated Comments 07/27/2023 2:56 PM 08/05/2023 5:34 PM * Full Code Date Activated Date Inactivated Comments 06/19/2023 10:41 AM 06/20/2023 12:24 PM Care Teams Rug Frame Mounter Relationship Specialty Start Date End Date Gustavo Hsieh MD [address] [facility] [address] [place] [address] PCP - General Internal Medicine 10/25/18 Alberto West MD [address] [facility] [address] [place] [address] Surgeon Vascular Surgery 02/09/22 Diogo Corona MD [address] [place] [address] Consulting Physician Cardiothoracic Surgery 05/25/23
--- OUTSIDE RECORDS SUMMARY | 2024-11-13 17:29 | XMS_ITS | Clinical Summary ---
Author Organization [facility] [employer] Address [address] [place] [address] Care Team Providers Care Lasting Machine Operator Bed Name Role Phone Gustavo Hsieh DO Primary Care Provider [phone] Source Comments [facility] [employer],non-owned Affiliates and Associated Physician Practices is amultiple site organization consisting of ambulatory clinics and hospital sitesin [place], [place], [place] and [place]. This disclosure is being madepursuant to the Care Everywhere program and may not contain all information available regarding this patient. Last updated 18.[facility] [employer] Allergies No known active allergies Medications * [...] 66.7 kg (147 lb) 10/05/2020 8:57 AM STATION GATEMAN Height 167.6 cm (5' 6 ) 10/05/2020 8:57 AM STATION GATEMAN Body Mass Index 23.73 10/05/2020 8:57 AM STATION GATEMAN Plan of Treatment Health Maintenance Due Date [...] age to complete this topic Care Teams Lasting Machine Operator Bed Relationship Specialty Start Date End Date Gustavo Hsieh DO [address] [facility] [address] [facility] [address] [place] [address] PCP - General 11/23/09
--- OUTSIDE RECORDS SUMMARY | 2024-11-13 17:29 | XMS_ITS | Referral Summary ---
Author Organization [facility] [facility] Address [address] [place] [address] Care Team Providers Care Electric Wirer Name Role Phone Gustavo Hsieh MD Primary Care Provider + [phone] Alberto West MD Unavailable [phone] Diogo Corona MD Unavailable [phone] Encounters Date Type Department Care Team Description 09/29/2024 9:45 AM ELECTRONIC EQUIPMENT MAINT TECH Office Visit Cardiovascular and Thoracic Surgery [address] [place] [address] Diogo Corona MD Thoracoabdominal aortic aneurysm (TAAA) without rupture, unspecified part (Primary Dx) 09/29/2024 9:10 AM ELECTRONIC EQUIPMENT MAINT TECH - 09/29/2024 11:59 PM ELECTRONIC EQUIPMENT MAINT TECH Hospital Encounter [facility] [address] [place] [address] Thoracoabdominal aortic aneurysm (TAAA) without [...] materials from doctor or pharmacy Never 10/08/2023 [facility] Utilities Answer Date Recorded In the past 12 months has th e [employer], gas, oil, or water [employer] threatened to shut off services in your [...] week 08/30/2023 How often do you attend caro center or congregational services? Never 08/30/2023 Do you belong to any clubs o r organizations such as orthodoxy groups, unions, fraternal or athletic groups, or [...] place to sleep or slept in a residential (including now)? No 08/30/2023 Personal Safety Answer Date Recorded Have you ever been in or are you currently in a harmful physical or emotional relationship or is someone making you feel afraid or unsafe? Denies 08/29/2023 Comments No Sex and Gender Information Value Date Recorded Sex Assigned at Not on file Legal Sex Female 8:28 PM ELECTRONIC EQUIPMENT MAINT TECH Gender Identity Not on file Sexual Orientation Not on file Last Filed Vital Signs Vital Sign Reading Time Taken Comments Blood Pressure 186/76 09/29/2024 11:03 AM ELECTRONIC EQUIPMENT MAINT TECH Pulse 82 09/29/2024 11:03 AM ELECTRONIC EQUIPMENT MAINT TECH Temperature 36.1 C (97 F) 10/08/2023 2:20 PM ELECTRONIC EQUIPMENT MAINT TECH Respiratory Rate 16 09/29/2024 11:03 AM ELECTRONIC EQUIPMENT MAINT TECH Oxygen Saturation 98% 09/29/2024 11:03 AM ELECTRONIC EQUIPMENT MAINT TECH Inhaled Oxygen Concentration - - Weight 59.9 kg (132 lb) 09/29/2024 11:03 AM ELECTRONIC EQUIPMENT MAINT TECH Height 165.1 cm (5' 5 ) 09/29/2024 11:03 AM ELECTRONIC EQUIPMENT MAINT TECH Body Mass Index 21.97 09/29/2024 11:03 AM ELECTRONIC EQUIPMENT MAINT TECH Plan of Treatment Not on file Medical Devices Implanted Type Area Farm Adviser Device Identifier Shelf Expiration Date Model / Serial / Lot Sensora[employer]le Inc Graft Quadfurcated Thoracic Collagen Coated Double Velour Hemashield [place] [id number] Woven Polyester [id number] - [id number] - [id number] Implanted:Qty: 1 on 07/27/2023 by Diogo Corona MD at [facility] [employer] 04/05/2027 [id number] / [id number] / Bard Peripheral Vascular Bard .25x.25in [place] Thk1.65mm Square Pledget Cardiovascular Ptfe 019700 - [id number] Implanted:Qty: 1 on 07/27/2023 by Diogo Corona MD at [facility] Bard Peripheral Vascular [id number] / / Cryolife Inc Patch Cardiovascular 0.8x8cm Nonpyrogenic Pfp0.8x8 - [id number] Implanted:Qty: 1 on 07/27/2023 by Diogo Corona MD at [facility] [employer] Inc 02/18/2025 PFP0.8X8 / / [id number] Limestone [employer] Limestone Tag 31mm 15cm Active Control Conformable Thoracic Graft [id number] - [id number] - [id number] Implanted:Qty: 1 on 07/27/2023 by Diogo Corona MD at [facility] Wl [employer] 06/05/2024 [id number] / [id number] / Wl [employer] Limestone Tag 31mm 20cm Active Control Conformable Thoracic Graft [id number] - [id number] - [id number] Implanted:Qty: 1 on 07/27/2023 by Diogo Corona MD at [facility] Wl [employer] 12/01/2025 [id number] 0 / [id number] / Cryolife Inc Cryovein 6mm 80cm Allograft Saphenous Vein Graft Soft Tissue V010 80+ - [id number] - [id number] Implanted:Qty: 1 on 07/27/2023 by Diogo Corona MD at [facility] [employer] 03/15/2032 V010 80+ / [id number] / Maciel Vascular Device Clsr Perclose Prostyle Sut-Mediatd Closure-Repair Sys 93717-19 - [id number] Implanted:Qty: 1 on 08/29/2023 by Diogo Corona MD at [facility] [employer] 05/05/2025 98637 -03 / / [id number] Maciel Vascular Device Clsr Perclose Prostyle Sut-Mediatd Closure-Repair Sys 58777-64 - [id number] Implanted:Qty: 1 on 08/29/2023 by Diogo Corona MD at [facility] Left: Groin [employer] 06/05/2025 77870-45 / / [id number] Maciel Vascular Device Clsr Perclose Prostyle Sut-Mediatd Closure-Repair Sys 55411-06 - [id number] Implanted:Qty: 1 on 08/29/2023 by Diogo Corona MD at [facility] Left: Groin [employer] 06/05/2025 21756-37 / / [id number] Maciel Vascular Device Clsr Perclose Prostyle Sut-Mediatd Closure-Repair Sys 80803-56 - [id number] Implanted:Qty: 1 on 08/29/2023 by Diogo Corona MD at [facility] [employer] 06/05/2025 22947 -03 / / [id number] Maciel Vascular Device Clsr Perclose Prostyle Sut-Mediatd Closure-Repair Sys 28551-37 - [id number] Implanted:Qty: 1 on 08/29/2023 at [facility] Right: Groin [employer] 05/05/2025 31283-80 / / [id number] Description:Failed to deploy Wl [employer] Limestone Viabahn 8mm 11mm 7fr 39mm 135cm Balloon Expandable Guidewire [id number] - [id number] - [id number] Implanted:Qty: 1 on 08/29/2023 by Diogo Corona MD at [facility] Wl [employer] 05/19/2026 [id number] / [id number] / Procedures Procedure Name Priority Date/Time Associated Diagnosis Comments CTA CHEST ABDOMEN PELVIS Schedule Routine, Read Routine (OP Routine) 09/29/2024 10:20 AM ELECTRONIC EQUIPMENT MAINT TECH Thoracoabdominal aortic aneurysm (TAAA) without rupture, unspecified part POCT CREATININE FOR CONTRAST EVALUATION Routine 09/29/2024 9:50 AM ELECTRONIC EQUIPMENT MAINT TECH from Last 3 Months Results * CTA Chest Abdomen Pelvis (09/29/2024 10:20 AM ELECTRONIC EQUIPMENT MAINT TECH) Anatomical Region Laterality Modality Body N/A Computed Tomogra phy 09/29/2024 11:3 5 AM ELECTRONIC EQUIPMENT MAINT TECH Impressions 09/30/2024 7:10 AM ELECTRONIC EQUIPMENT MAINT TECH 1. Stable postoperative changes from thoracoabdominal aortic [...] Ibrahima Larson M.D. Narrative 09/30/2024 7:10 AM ELECTRONIC EQUIPMENT MAINT TECH EXAMINATION: 1. Computed tomography of the chest [...] signed by: Ibrahima Larson M.D. [facility] MIDWIFE IMG CT PROCEDURES Final Result * POCT creatinine for contrast evaluation (09/29/2024 9:50 AM ELECTRONIC EQUIPMENT MAINT TECH) Creatinine, POC 1.3 0.6 - 1.5 mg/dL Comment:eGFR: 42 Blood 09/29/2024 9:50 AM ELECTRONIC EQUIPMENT MAINT TECH us Diogo Corona MD POINT OF CARE TEST ORDER BRAYDEN Final Result from Last 3 Months Insurance [employer]NA MEDICARE GOLD A[employer]NA MEDICARE GOLD Advance Directives For more information, please contact: [phone] * Full Code (Latest Code Status on File) Date Activated Date Inactivated Comments 08/27/2023 8:24 PM 09/07/2023 7:17 PM * Full Code Date Activated Date Inactivated Comments 07/27/2023 2:56 PM 08/05/2023 5:34 PM * Full Code Date Activated Date Inactivated Comments 06/19/2023 10:41 AM 06/20/2023 12:24 PM Care Teams Electric Wirer Relationship Specialty Start Date End Date Gustavo Hsieh MD [address] [facility] [address] [place] [address] PCP - General Internal Medicine 10/25/18 Alberto West MD [id number] [place] [address] Surgeon Vascular Surgery 02/09/22 Diogo Corona MD [address] [facility] [address] [place] [address] Consulting Physician Cardiothoracic Surgery 05/25/23
--- NOTE | 2024-11-13 17:38 | ADMGEN ---
This patient, Gia Leggett, was admitted to 3 [facility] Surg Room 317-01. Patient/family oriented to hospital policies and general routines including ID bracelet, bed and alarms, visiting hours, pain management, procedures, bathroom and other care routines, personal items, smoking policy, room service/diet, and visiting hours. Information on how to activate the Rapid Response Team has been discussed. Patient/Family are encouraged to report perceived risks to care and to ask questions if they do not understand what they are told or what they should do.
[2024-11-13] MEDS: SENNA/DOCUSATE SODIUM TABLET 2 TAB PO (17:50)
[2024-11-13] MEDS: SODIUM CHLORIDE 0.9% IV 1,000 ML 125 ML IV CONT (17:52)
[2024-11-13] MEDS: ONDANSETRON INJ 4 MG/2 ML VIAL IV PUSH (18:01)
[2024-11-13] MEDS: HYDROcodone/acetaminophen (*CRX) 5-325 MG TABLET 1 TAB PO (18:33)
[2024-11-14] VITALS (11 sets, daily range): BP systolic 107–152; BP diastolic 44–69; PULSE 68–112; RESP 14–20; TEMP 36.3–37.3; O2SAT 92–98
[2024-11-14] MEDS: HYDROcodone/acetaminophen (*CRX) 5-325 MG TABLET 1 TAB PO ×3 (01:17→22:30)
[2024-11-14] MEDS: HYDROmorphone HCL INJ (*CRX) 1 MG/ML SYR 0.5 MG IV PUSH (02:18)
[2024-11-14] MEDS: ceFAZolin 2 GM/D5W 50 ML 2 GM/50 ML BAG IVPB ×2 (05:28→13:18)
[2024-11-14 06:42] LABS: Basophils Absolute Auto 0.1 K/mm3 (0.0-0.1); Basophils Percent Auto 0.4 % (0.2-1.2); Eosinophils Absolute Auto 0.1 K/mm3 (0-0.3); Eosinophils Percent Auto 0.3 % (0-4.4); Hematocrit 33.1 % (37.0-47.0); Hemoglobin 10.5 g/dL (12.0-15.0); Immature Granulocyte Absolute 0.12 K/mm3 (0.00-0.031); Immature Granulocyte Percent A 0.7 % (0-0.5); Lymphocytes Absolute Auto 3.59 K/mm3 (0.9-3.2); Lymphocytes Percent Auto 19.9 % (18.3-44.2); Mean Corpuscular HGB Conc 31.7 g/dl (32-36); Mean Corpuscular Hemoglobin 30.7 pg (26-34); Mean Corpuscular Volume 96.8 fl (80-100); Mean Platelet Volume 10.6 fl (7.4-10.4); Monocytes Percent Auto 10.9 % (2.6-8.5); Neutrophils Absolute Auto 12.3 K/mm3 (1.3-6.7); Neutrophils Percent Auto 67.8 % (45.5-73.1); Nucleated Red Blood Cells Perc 0.2 % (0.0-0.2); Platelet Count Result 302 k/mm3 (150-375); Red Blood Count 3.42 M/mm3 (4.2-5.4); Red Cell Distribution Width 14.7 % (11.5-14.5); White Blood Count 18.1 K/mm3 (4.5-10.0)
[2024-11-14 07:11] LABS: Anion Gap 10 mmol/L (4-12); Blood Urea Nitrogen 22 mg/dL (7-17); Calcium 9.4 mg/dL (8.4-10.2); Carbon Dioxide 21 mmol/L (22-30); Chloride 107 mmol/L (98-107); Estimated CRCL calculation 28 ml/min; Estimated Glomerular Filt Rate 41; Glucose 106 mg/dL (65-110); Potassium 4.4 mmol/L (3.4-5.0); Sodium 138 mmol/L (137-145)
--- NOTE | 2024-11-14 08:27 | P.PNOP_ITS ---
Progress Note: A&P Assessment and Plan (1) Fracture of femoral neck, right: Qualifiers: Encounter type: initial encounter Fracture type: closed Qualified Code(s): S72.001A - Fracture of unspecified part of neck of right femur, initial encounter for closed fracture Code(s): S72.001A - Fracture of unspecified part of neck of right femur, initial encounter for closed fracture Status: Acute Assessment and Plan: Patient is S/P pinning of Left Femoral Neck FX. Will mobilize today. Anticapate need for rehab vs NH. (2) Colles' fracture of right radius: Qualifiers: Encounter type: initial encounter Fracture type: closed Qualified Code(s): S52.531A - Colles' fracture of right radius, initial encounter for closed fracture Code(s): S52.531A - Colles' fracture of right radius, initial encounter for closed fracture Status: Acute Subjective Subjective Date/Time Seen: 11/14/24 08:27 Post Op day: 1 Principal diagnosis: Pinning Left Femoral Neck Review of Systems Review of Systems: All systems reviewed & are unremarkable except as noted in HPI and below Exam Narrative: Wiggles toes. Dressing intact. Objective Data Vital Signs Vital Signs: Vital Signs - 24 hr 11/13/24 09:35 11/13/24 10:04 11/13/24 10:19 Temperature Pulse Rate 73 77 76 Respiratory Rate 18 15 20 Blood Pressure 140/94 H Pulse Oximetry 94 98 94 Oxygen Delivery Oxygen Flow Rate 11/13/24 11:16 11/13/24 11:46 11/13/24 12:00 Temperature Pulse Rate 79 75 75 Respiratory Rate 20 18 19 Blood Pressure 139/51 L 123/58 L Pulse Oximetry 93 93 91 Oxygen Delivery Oxygen Flow Rate 11/13/24 12:01 11/13/24 12:04 11/13/24 12:16 Temperature Pulse Rate 73 73 71 Respiratory Rate 14 18 17 Blood Pressure 118/45 L 118/45 L 124/43 L Pulse Oximetry 94 94 97 Oxygen Delivery Oxygen Flow Rate 11/13/24 12:30 11/13/24 12:31 11/13/24 15:39 Temperature 97.8 F Pulse Rate 74 76 89 Respiratory Rate 13 19 18 Blood Pressure 131/65 119/83 Pulse Oximetry 99 99 98 Oxygen Delivery Simple Face Mask Oxygen Flow Rate 8 11/13/24 15:55 11/13/24 16:10 11/13/24 16:25 Temperature 97.6 F Pulse Rate 88 87 88 Respiratory Rate 18 16 14 Blood Pressure 168/69 H 154/76 H 160/74 H Pulse Oximetry 98 98 98 Oxygen Delivery Simple Face Mask Nasal Cannula Nasal Cannula Oxygen Flow Rate 8 3 3 11/13/24 16:40 11/13/24 16:55 11/13/24 17:00 Temperature 97.6 F Pulse Rate 82 79 79 Respiratory Rate 14 14 18 Blood Pressure 145/60 H 142/68 H 151/61 H Pulse Oximetry 100 100 98 Oxygen Delivery Nasal Cannula Nasal Cannula Oxygen Flow Rate 2 3 11/13/24 17:20 11/13/24 17:25 11/13/24 17:55 Temperature 97.6 F 98 F Pulse Rate 78 96 Respiratory Rate 18 16 Blood Pressure 150/61 H 138/50 L Pulse Oximetry 2 L 96 94 Oxygen Delivery Nasal Cannula Oxygen Flow Rate 2 11/13/24 18:55 11/13/24 20:00 11/13/24 20:00 Temperature 98.2 F 97.0 F L Pulse Rate 96 87 Respiratory Rate 16 17 Blood Pressure 123/53 L 125/63 Pulse Oximetry 96 96 96 Oxygen Delivery Nasal Cannula Oxygen Flow Rate 2 11/13/24 22:29 11/14/24 00:00 11/14/24 02:49 Temperature 97.0 F L 97.4 F L 99.2 F Pulse Rate 87 78 79 Respiratory Rate 17 16 14 Blood Pressure 125/63 124/48 L 107/57 L Pulse Oximetry 96 96 96 Oxygen Delivery Oxygen Flow Rate 11/14/24 05:51 Temperature 97.5 F L Pulse Rate 68 Respiratory Rate 14 Blood Pressure 116/44 L Pulse Oximetry 98 Oxygen Delivery Oxygen Flow Rate Intake/Output Intake/Output: Intake & Output 11/11/24 11/12/24 11/13/24 11/14/24 23:59 23:59 23:59 23:59 Intake Total 400 250 Output Total 850 Balance 400 -600 Meds/Results Medications: Active Medications Generic Name Dose Route Start Last Admin Trade Name Freq PRN Reason Stop Dose Admin Hydrocodone Bitart/Acetaminophen 1 tab 11/13/24 17:04 11/14/24 01:17 Hydrocodone/Acetaminophen (*Crx) 5-325 Mg Tablet PO 1 tab Q4H PRN Administration Pain Rated 4-6 Hydrocodone Bitart/Acetaminophen 1 tab 11/13/24 17:04 Hydrocodone/Acetaminophen (*Crx) 7.5-325 Mg Tablet PO Q4H PRN Pain Rated 7-10 Alendronate Sodium 70 mg 11/20/24 09:00 Alendronate Sodium 70 Mg Tablet PO WEEKLY BEN Aspirin 81 mg 11/14/24 09:00 Aspirin 81 Mg Enteric Tablet PO DAILY BEN Bisacodyl 5 mg 11/13/24 13:42 Bisacodyl 5 Mg Tablet Ec PO DAILY PRN Constipation Clopidogrel Bisulfate 75 mg 11/14/24 09:00 Clopidogrel Bisulfate 75 Mg Tablet PO DAILY BEN Fentanyl Citrate 25 mcg 11/13/24 15:59 11/13/24 16:15 Fentanyl Citrate Inj (*Crx) 100 Mcg/2 Ml Vial IV PUSH 25 mcg Q2M PRN Administration Pain Hydromorphone HCl 1 mg 11/13/24 17:04 Hydromorphone Hcl Inj (*Crx) 1 Mg/Ml Syr IV PUSH Q2H PRN Breakthrough Pain Rated 7-10 or NPO Hydromorphone HCl 0.5 mg 11/13/24 17:04 11/14/24 02:18 Hydromorphone Hcl Inj (*Crx) 1 Mg/Ml Syr IV PUSH 0.5 mg Q2H PRN Administration Breakthrough Pain Rated 4-6 or NPO Hydroxyzine Pamoate 50 mg 11/13/24 17:04 Hydroxyzine Pamoate 25 Mg Capsule PO Q4H PRN Itching Lactated Ringer's 1,000 mls @ 30 mls/hr 11/13/24 16:00 11/13/24 16:55 Lr - Lactated Ringers Iv IV CONT Infused .Q24H BEN Infusion Sodium Chloride 1,000 mls @ 125 mls/hr 11/13/24 17:04 11/13/24 17:52 Normal Saline Iv IV CONT 125 mls/hr .Q8H BEN Administration Cefazolin Sodium 2 gm in 50 mls @ 100 mls/hr 11/13/24 22:00 11/14/24 05:58 Ancef 2 Gm/D5w 50 Ml IVPB 11/14/24 14:29 Infused Q8H BEN Infusion Ibuprofen 800 mg in 200 mls @ 400 mls/hr 11/13/24 17:04 Caldolor 800 Mg/200 Ml IVPB Q6H PRN Breakthrough Pain Rated 1-3 or NPO Lisinopril 10 mg 11/14/24 09:00 Lisinopril 10 Mg Tablet PO DAILY [facility] Miscellaneous Information 0 each 11/13/24 00:01 Cyanocobalamin 100mcg Nonform Hold While Here Or We Stock 250mcg XX 12/13/24 00:00 CLARIFY [facility] Miscellaneous Information 0 each 11/13/24 00:01 Alendronate What Day Of Week Dose Pt Take?? XX 12/13/24 00:00 CLARIFY [facility] Naloxone HCl 0.1 mg 11/13/24 13:42 Naloxone Hcl 0.4 Mg/Ml Vial IV PUSH Q2M PRN Opiate Reversal Naloxone HCl 0.1 mg 11/13/24 17:04 Naloxone Hcl 0.4 Mg/Ml Vial IV PUSH Q2M PRN Opiate Reversal Non-Formulary Medication 100 mcg 11/14/24 09:00 Cyanocobalamin (Vitamin B-12) PO 12/14/24 08:59 DAILY [facility] Ondansetron HCl 4 mg 11/13/24 13:42 Ondansetron Inj 4 Mg/2 Ml Vial IV PUSH Q6H PRN Nausea And Vomiting Ondansetron HCl 4 mg 11/13/24 15:59 Ondansetron Inj 4 Mg/2 Ml Vial IV PUSH ONCE PRN Nausea Ondansetron HCl 4 mg 11/13/24 17:04 11/13/24 18:01 Ondansetron Inj 4 Mg/2 Ml Vial IV PUSH 4 mg Q4H PRN Administration Nausea And Vomiting Pantoprazole Sodium 40 mg 11/14/24 09:00 Pantoprazole 40 Mg Tablet PO QAM [facility] Polyethylene Glycol 17 gm 11/14/24 09:00 Polyethylene Glycol 3350 17 Gm Powd.Pack PO QAM [facility] Senna/Docusate Sodium 2 tab 11/13/24 17:04 11/13/24 17:50 Senna/Docusate Sodium Tablet PO 2 tab BID BEN Administration Simvastatin 20 mg 11/14/24 09:00 Simvastatin 20 Mg Tablet PO QAM BEN Tramadol HCl 50 mg 11/13/24 17:04 Tramadol Hcl (*Crx) 50 Mg Tablet PO Q4H PRN Pain Rated 1-3 Radiology Results: ITS Impressions Lumbar Spine CT 11/13/24 09:08 IMPRESSION: 1. Mild lumbar spondylosis. 2. 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 2. A few tiny nonobstructing left renal stones. Hip/Pelvis X-Ray 11/13/24 09:23 IMPRESSION: 1. Posteriorly impacted subcapital fracture of the proximal right femur. Knee X-Ray 11/13/24 09:27 IMPRESSION: 1. Mild tricompartmental osteoarthritis at the right knee. No joint effusion or acute osseous abnormality. Wrist X-Ray 11/13/24 09:29 IMPRESSION: 1. Dorsally impacted comminuted distal metaphyseal fracture of the right radius. 2. 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 Chest X-Ray 11/13/24 09:51 IMPRESSION: No acute process. COPD. Labs Labs: Laboratory Results - last 24 hr 11/13/24 11/13/24 11/13/24 09:41 10:11 10:36 WBC 14.7 H RBC 3.63 L Hgb 11.0 L Hct 34.5 L MCV 95.0 MCH 30.3 MCHC 31.9 L RDW 14.6 H Plt Count 335 MPV 10.8 H Immature Gran % (Auto) 0.5 Neut % (Auto) 59.2 Lymph % (Auto) 28.1 [place] % (Auto) 8.5 Eos % (Auto) 2.7 Baso % (Auto) 1.0 Lymph # (Auto) 4.12 H [place] # (Auto) 1.3 H Eos # (Auto) 0.4 H Baso # (Auto) 0.1 Abs Immat Gran (auto) 0.07 H Absolute Neuts (auto) 8.7 H Absolute Nucleated RBC 0.020 H Nucleated RBC % 0.1 PT 13.7 INR 1.0 APTT 23.2 Sodium 141 Potassium 3.8 Chloride 105 Carbon Dioxide 24 Anion Gap 12 BUN 26 H Creatinine 1.23 H Estim Creat Clear Calc 28 Estimated GFR 42 L Glucose 101 Calcium 9.7 Total Bilirubin 0.7 AST 24 ALT 15 Alkaline Phosphatase 67 Total Protein 8.0 Albumin 4.4 Urine Color Yellow Urine Appearance Clear Urine pH 6.0 Ur Specific [place] 1.021 Urine Protein Trace Urine Glucose (UA) Negative Urine Ketones Trace H Ur Blood (Man) Negative Urine Nitrate Negative Urine Bilirubin Negative Urine Urobilinogen 1.0 Leukocyte Esterase Rfl Negative Urine RBC 0-2 Urine WBC 0-5 Ur Squamous Epith Cells None seen Urine Bacteria None seen Urine Casts 0-2 Influenza A (RT-PCR) Negative Influenza B (RT-PCR) Negative RSV (RT-PCR) Negative SARS-CoV-2 RNA (RT-PCR) Negative Blood Type Antibody Screen 11/13/24 11/14/24 14:10 06:11 WBC 18.1 H RBC 3.42 L Hgb 10.5 L Hct 33.1 L MCV 96.8 MCH 30.7 MCHC 31.7 L RDW 14.7 H Plt Count 302 MPV 10.6 H Immature Gran % (Auto) 0.7 H Neut % (Auto) 67.8 Lymph % (Auto) 19.9 [place] % (Auto) 10.9 H Eos % (Auto) 0.3 Baso % (Auto) 0.4 Lymph # (Auto) 3.59 H [place] # (Auto) 2.0 H Eos # (Auto) 0.1 Baso # (Auto) 0.1 Abs Immat Gran (auto) 0.12 H Absolute Neuts (auto) 12.3 H Absolute Nucleated RBC 0.030 H Nucleated RBC % 0.2 PT INR APTT Sodium 138 Potassium 4.4 Chloride 107 Carbon Dioxide 21 L Anion Gap 10 BUN 22 H Creatinine 1.24 H Estim Creat Clear Calc 28 Estimated GFR 41 L Glucose 106 Calcium 9.4 Total Bilirubin AST ALT Alkaline Phosphatase Total Protein Albumin Urine Color Urine Appearance Urine pH Ur Specific [place] Urine Protein Urine Glucose (UA) Urine Ketones Ur Blood (Man) Urine Nitrate Urine Bilirubin Urine Urobilinogen Leukocyte Esterase Rfl Urine RBC Urine WBC Ur Squamous Epith Cells Urine Bacteria Urine Casts Influenza A (RT-PCR) Influenza B (RT-PCR) RSV (RT-PCR) SARS-CoV-2 RNA (RT-PCR) Blood Type O Positive Antibody Screen Negative
[2024-11-14] MEDS: ASPIRIN 81 MG ENTERIC TABLET PO (08:47)
[2024-11-14] MEDS: CLOPIDOGREL BISULFATE 75 MG TABLET PO (08:47)
[2024-11-14] MEDS: lisinopriL 10 MG TABLET PO (08:47)
[2024-11-14] MEDS: PANTOPRAZOLE 40 MG TABLET PO (08:47)
[2024-11-14] MEDS: SENNA/DOCUSATE SODIUM TABLET 2 TAB PO (08:47)
[2024-11-14] MEDS: polyethylene glycoL 3350 17 GM POWD.PACK PO (08:47)
[2024-11-14] MEDS: SIMVASTATIN 20 MG TABLET PO (08:48)
[2024-11-14] MEDS: HYDROcodone/acetaminophen (*CRX) 7.5-325 MG TABLET 1 TAB PO (08:49)
--- NOTE | 2024-11-14 09:44 | P.CONIM_ITS ---
Assessment and Plan Assessment and plan (1) Fracture of femoral neck, right: Qualifiers: Encounter type: initial encounter Fracture type: closed Qualified Code(s): S72.001A - Fracture of unspecified part of neck of right femur, initial encounter for closed fracture Code(s): S72.001A - Fracture of unspecified part of neck of right femur, initial encounter for closed fracture Status: Acute Assessment and Plan: Hip/pelvic XR showed a posterior impacted subcapital fracture of the proximal right femur. Orthopedics consulted, Juan José WALKER. provider recommended open reduction internal fixation, if unsuccessful may try bipolar. Patient is agreeable to surgical management. Analgesics and antiemetics p.r.n.. Monitor labs. PT/OT evaluation and treatment postop and care coordination postop for possible rehab. (2) Colles' fracture of right radius: Qualifiers: Encounter type: initial encounter Fracture type: closed Qualified Code(s): S52.531A - Colles' fracture of right radius, initial encounter for closed fracture Code(s): S52.531A - Colles' fracture of right radius, initial encounter for closed fracture Status: Acute Assessment and Plan: R wrist XR showed a dorsally impacted comminuted distal metaphyseal fracture of the right radius. Orthopedics consulted, recommended attempted reduction of right wrist. Brace in place. Analgesics p.r.n.. PT/OT/care coordination consulted for possible rehab. Plan Diet: NPO GI Prophylaxis: Not currently indicated DVT Prophylaxis: SCDs Lines: Peripheral Code Status: Full code HPI Date of Consult Consult date: 11/14/24 Requesting Physician: Vincent Can MD Primary Care Provider: Fernando Slaughter DO Consult Narrative Narrative: Gia Leggett is a 84 year old female Review of Systems 2 Review of Systems: All systems reviewed & are unremarkable except as noted in HPI and below PMFSH Past Medical History Medical History Former smoker Hx of carotid artery stenosis Hyperlipidemia Osteoporosis Chronic GERD Neuropathy Dementia COPD (chronic obstructive pulmonary disease) History of thoracoabdominal aortic aneurysm (TAAA) Humerus fracture Surgical History Surgical History History of thoracic aortic aneurysm repair Family History Family History Mother Cerebrovascular accident Father Patient's father is Carcinoma of colon Sibling Family history of malignant neoplasm Social History Social History Smoking packs per day: 1 Smoking cigarettes per day: 20.0 Years smoked: 65 Smoking pack-years: 65.00 Smoking status: Former smoker Second hand tobacco smoke exposure: No Alcohol intake: former Substance use: never Substance use type: does not use Do You Feel Safe in your Home?: Yes Lack of Transportation: No Lack of Food: Never True Current Housing: I Have Housing Concerned About Future Housing: No Difficulty Paying Gas/Electric Bills: No Difficulty Paying for Meds: No Currently Unemployed: No Education: High School Diploma/GED Difficulty w/ Childcare or Family Care: No Living arrangements: with family Gender identity (if verbalized by the patient): Female Spiritual care concerns: No Meds Home Medications and Allergies Home Medications ?Medication ?Instructions ?Recorded ?Confirmed ?Type alendronate 70 mg tablet 70 mg PO WEEKLY #13 tabs 12/10/23 11/13/24 Rx clopidogrel 75 mg tablet 75 mg PO DAILY #90 tabs 12/11/23 11/13/24 Rx pantoprazole 40 mg tablet,delayed 40 mg PO QAM #90 tabs 12/11/23 11/13/24 Rx release lisinopril 10 mg tablet 10 mg PO DAILY #100 tabs 05/01/24 11/13/24 Rx simvastatin 20 mg tablet See Rx Instructions .Route 10/09/24 11/13/24 Rx .COMPLEX #90 tabs aspirin 81 mg tablet,delayed 81 mg PO DAILY 11/13/24 11/13/24 History release cyanocobalamin (vitamin B-12) 100 100 mcg PO DAILY 11/13/24 11/13/24 History mcg tablet gabapentin 100 mg capsule 100 mg PO HS 11/13/24 11/13/24 History Allergies Allergy/AdvReac Type Severity Reaction Status Date / Time No Known Allergies Allergy Verified 11/13/24 07:33 Vital Signs Vital Signs - 24 hr 11/13/24 10:04 11/13/24 10:19 11/13/24 11:16 Temperature Pulse Rate 77 76 79 Respiratory Rate 15 20 20 Blood Pressure 140/94 H 139/51 L Pulse Oximetry 98 94 93 Oxygen Delivery Oxygen Flow Rate 11/13/24 11:46 11/13/24 12:00 11/13/24 12:01 Temperature Pulse Rate 75 75 73 Respiratory Rate 18 19 14 Blood Pressure 123/58 L 118/45 L Pulse Oximetry 93 91 94 Oxygen Delivery Oxygen Flow Rate 11/13/24 12:04 11/13/24 12:16 11/13/24 12:30 Temperature Pulse Rate 73 71 74 Respiratory Rate 18 17 13 Blood Pressure 118/45 L 124/43 L Pulse Oximetry 94 97 99 Oxygen Delivery Oxygen Flow Rate 11/13/24 12:31 11/13/24 15:39 11/13/24 15:55 Temperature 97.8 F Pulse Rate 76 89 88 Respiratory Rate 19 18 18 Blood Pressure 131/65 119/83 168/69 H Pulse Oximetry 99 98 98 Oxygen Delivery Simple Face Mask Simple Face Mask Oxygen Flow Rate 8 8 11/13/24 16:10 11/13/24 16:25 11/13/24 16:40 Temperature 97.6 F Pulse Rate 87 88 82 Respiratory Rate 16 14 14 Blood Pressure 154/76 H 160/74 H 145/60 H Pulse Oximetry 98 98 100 Oxygen Delivery Nasal Cannula Nasal Cannula Nasal Cannula Oxygen Flow Rate 3 3 2 11/13/24 16:55 11/13/24 17:00 11/13/24 17:20 Temperature 97.6 F Pulse Rate 79 79 Respiratory Rate 14 18 Blood Pressure 142/68 H 151/61 H Pulse Oximetry 100 98 2 L Oxygen Delivery Nasal Cannula Nasal Cannula Oxygen Flow Rate 3 2 11/13/24 17:25 11/13/24 17:55 11/13/24 18:55 Temperature 97.6 F 98 F 98.2 F Pulse Rate 78 96 96 Respiratory Rate 18 16 16 Blood Pressure 150/61 H 138/50 L 123/53 L Pulse Oximetry 96 94 96 Oxygen Delivery Oxygen Flow Rate 11/13/24 20:00 11/13/24 20:00 11/13/24 22:29 Temperature 97.0 F L 97.0 F L Pulse Rate 87 87 Respiratory Rate 17 17 Blood Pressure 125/63 125/63 Pulse Oximetry 96 96 96 Oxygen Delivery Nasal Cannula Oxygen Flow Rate 2 11/14/24 00:00 11/14/24 02:49 11/14/24 05:51 Temperature 97.4 F L 99.2 F 97.5 F L Pulse Rate 78 79 68 Respiratory Rate 16 14 14 Blood Pressure 124/48 L 107/57 L 116/44 L Pulse Oximetry 96 96 98 Oxygen Delivery Oxygen Flow Rate 11/14/24 08:33 11/14/24 08:46 Temperature Pulse Rate 78 Respiratory Rate 20 Blood Pressure Pulse Oximetry 92 Oxygen Delivery Nasal Cannula Nasal Cannula Oxygen Flow Rate 1 1 Exam 2 Const: General: comfortable and no acute distress Other: , female, elderly, nontoxic appearance HENMT: Face/Nose/Sinus: Normal nares present Mouth: Yes moist mucous membranes Eyes: General: appearance normal, both eyes and all related structures S clera: sclerae normal Pupils: Equal, round and reactive pupils present E OM: EOMs intact bilaterally Resp: Effort & Inspection: normal respiratory effort Auscultation: clear to auscultation bilaterally Cardio: Rate: regular rate Rhythm: regular rhythm Other: S1-S2 present without murmur, rub, ectopy GI: Other: Abdomen soft, nondistended, nontender. Normoactive bowel sounds in all quadrants. Skin: General skin exam: normal color and no rashes or lesions noted W ounds: no wounds Neuro: Cranial nerves: Yes Equal, round and reactive pupils present Speech: normal speech Motor exam (neuro): 5/5 motor strength present throughout S ensory Exam: normal sensation Other: A&O x3-4, some short term memory difficulty requiring redirection Extrem: General: normal to inspection Other: splint to RUE, fingers warm, and dry. cap refill brisk. DP pulse strong bilaterally. right hip tenderness with palpation. Psych: Mental Status: mental status grossly normal Affect: normal affect Other: fair insight and judgement, pleasant. Results Labs 11/14/24 06:11 11/14/24 06:11 Labs: Short CBC 11/13/24 11/14/24 Range/Units 09:41 06:11 WBC 14.7 H 18.1 H (4.5-10.0) K/mm3 Hgb 11.0 L 10.5 L (12.0-15.0) g/dL Hct 34.5 L 33.1 L (37.0-47.0) % Plt Count 335 302 (150-375) k/mm3 [facility] 11/13/24 11/14/24 09:41 06:11 Sodium 141 138 Potassium 3.8 4.4 Chloride 105 107 Carbon Dioxide 24 21 L BUN 26 H 22 H Creatinine 1.23 H 1.24 H Glucose 101 106 Calcium 9.7 9.4 Liver Function 11/13/24 Range/Units 09:41 Total Bilirubin 0.7 (0.2-1.3) mg/dL AST 24 (14-36) U/L ALT 15 (6-35) U/L Alkaline Phosphatase 67 (38-126) U/L Albumin 4.4 (3.5-5.1) g/dL Urine 11/13/24 Range/Units 10:36 Urine Color Yellow (Yellow) Urine Appearance Clear (Clear) Urine pH 6.0 (5.0-9.0) Ur Specific [place] 1.021 (1.001-1.035) Urine Protein Trace (Negative) mg/dL Urine Glucose (UA) Negative (Negative) mg/dL Quality VTE Prophylaxis VTE prophylaxis: mechanical ordered
--- NOTE | 2024-11-14 09:46 | PM.IMPN ---
Progress Note: A&P Assessment and Plan (1) Fracture of femoral neck, right: Qualifiers: Encounter type: initial encounter Fracture type: closed Qualified Code(s): S72.001A - Fracture of unspecified part of neck of right femur, initial encounter for closed fracture Code(s): S72.001A - Fracture of unspecified part of neck of right femur, initial encounter for closed fracture Status: Acute Assessment and Plan: Hip/pelvic XR showed a posterior impacted subcapital fracture of the proximal right femur. Orthopedics consulted, Juan José WALKER. provider recommended open reduction internal fixation, if unsuccessful may try bipolar. Patient is agreeable to surgical management. Analgesics and antiemetics p.r.n.. Monitor labs. PT/OT evaluation and treatment postop and care coordination postop for possible rehab. S/P pinning of Left Femoral Neck FX with Dr Can today (2) Colles' fracture of right radius: Qualifiers: Encounter type: initial encounter Fracture type: closed Qualified Code(s): S52.531A - Colles' fracture of right radius, initial encounter for closed fracture Code(s): S52.531A - Colles' fracture of right radius, initial encounter for closed fracture Status: Acute Assessment and Plan: R wrist XR showed a dorsally impacted comminuted distal metaphyseal fracture of the right radius. Orthopedics consulted, recommended attempted reduction of right wrist. Brace in place. Analgesics p.r.n.. PT/OT/care coordination consulted for possible rehab. Plan NOted elevated wbc. Pt needs to use IS and get out of bed at least TID to prevent developing pneumonia, aware, IS is ordered. Diet: resume diet-heart healthy GI Prophylaxis: Not currently indicated DVT Prophylaxis: SCDs Lines: Peripheral Code Status: Full code Time Spent With Patient Time with patient: 25 - 35 minutes Subjective Date/time seen: 11/14/24 09:46 Interval history: 84 y/o F with PMH of thoracic aortic aneurysm s/p repair (07/2023), HLD, carotid artery stenosis, COPD, GERD, arthritis, dementia, and osteoporosis presents here with a ground level fall. The patient presents here via EMS from for further evaluation after a ground level fall. She reports this morning she was walking when her right leg became weak and gave out . She reports history of neuropathy affecting her right leg. She reports she fell backwards and onto her right hip and right arm. She denies head strike or loss of consciousness. Post fall she is reporting pain to her right hip, right arm, and right wrist. She denies any prodrome, presyncope symptoms prior to fall. She denies nausea, vomiting, diarrhea, fever, cough, shortness of breath, chest pain, or abdominal pain. Initial VS at presentation: 97.8? F, HR 77, R 13, 143/58, and 99% on RA. ED workup showed: WBC 14.7, hemoglobin 11.0, normal coags, creatinine 1.23 and GFR 42 (at baseline), UA showed trace ketones otherwise unremarkable, viral PCR negative. 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 Hip/pelvic XR showed posterior impacted subcapital fracture of the proximal right femur. Knee XR showed mild tricompartmental osteoarthritis of the right knee, no joint effusion or acute osseous abnormality. 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 CXR showed no acute process, COPD. 11/14- S/P pinning of Left Femoral Neck FX with Dr Can. PT/OT today. Pt is resting in bed. She is very talkative. Pain is an issue. Needs to get out of bed, use IS. Review of Systems Review of Systems: All systems reviewed & are unremarkable except as noted in HPI and below Exam Const: General: comfortable and no acute distress Other: , female, elderly, nontoxic appearance HENMT: Face/Nose/Sinus: Normal nares present Mouth: Yes moist mucous membranes Eyes: General: appearance normal, both eyes and all related structures Sclera: sclerae normal Pupils: Equal, round and reactive pupils present EOM: EOMs intact bilaterally Resp: Effort & Inspection: normal respiratory effort Auscultation: clear to auscultation bilaterally Cardio: Rate: regular rate Rhythm: regular rhythm Other: S1-S2 present without murmur, rub, ectopy GI: Other: Abdomen soft, nondistended, nontender. Normoactive bowel sounds in all quadrants. Skin: General skin exam: normal color and no rashes or lesions noted Wounds: no wounds Neuro: Cranial nerves: Yes Equal, round and reactive pupils present Speech: normal speech Motor exam (neuro): 5/5 motor strength present throughout Sensory Exam: normal sensation Other: A&O x3-4, some short term memory difficulty requiring redirection Extrem: General: normal to inspection Other: splint to RUE, fingers warm, and dry. cap refill brisk. DP pulse strong bilaterally. right hip tenderness with palpation. Psych: Mental Status: mental status grossly normal Affect: normal affect Other: fair insight and judgement, pleasant. Objective Data Vital Signs Vital Signs: Vital Signs - 24 hr 11/13/24 10:04 11/13/24 10:19 11/13/24 11:16 Temperature Pulse Rate 77 76 79 Respiratory Rate 15 20 20 Blood Pressure 140/94 H 139/51 L Pulse Oximetry 98 94 93 Oxygen Delivery Oxygen Flow Rate 11/13/24 11:46 11/13/24 12:00 11/13/24 12:01 Temperature Pulse Rate 75 75 73 Respiratory Rate 18 19 14 Blood Pressure 123/58 L 118/45 L Pulse Oximetry 93 91 94 Oxygen Delivery Oxygen Flow Rate 11/13/24 12:04 11/13/24 12:16 11/13/24 12:30 Temperature Pulse Rate 73 71 74 Respiratory Rate 18 17 13 Blood Pressure 118/45 L 124/43 L Pulse Oximetry 94 97 99 Oxygen Delivery Oxygen Flow Rate 11/13/24 12:31 11/13/24 15:39 11/13/24 15:55 Temperature 97.8 F Pulse Rate 76 89 88 Respiratory Rate 19 18 18 Blood Pressure 131/65 119/83 168/69 H Pulse Oximetry 99 98 98 Oxygen Delivery Simple Face Mask Simple Face Mask Oxygen Flow Rate 8 8 11/13/24 16:10 11/13/24 16:25 11/13/24 16:40 Temperature 97.6 F Pulse Rate 87 88 82 Respiratory Rate 16 14 14 Blood Pressure 154/76 H 160/74 H 145/60 H Pulse Oximetry 98 98 100 Oxygen Delivery Nasal Cannula Nasal Cannula Nasal Cannula Oxygen Flow Rate 3 3 2 11/13/24 16:55 11/13/24 17:00 11/13/24 17:20 Temperature 97.6 F Pulse Rate 79 79 Respiratory Rate 14 18 Blood Pressure 142/68 H 151/61 H Pulse Oximetry 100 98 2 L Oxygen Delivery Nasal Cannula Nasal Cannula Oxygen Flow Rate 3 2 11/13/24 17:25 11/13/24 17:55 11/13/24 18:55 Temperature 97.6 F 98 F 98.2 F Pulse Rate 78 96 96 Respiratory Rate 18 16 16 Blood Pressure 150/61 H 138/50 L 123/53 L Pulse Oximetry 96 94 96 Oxygen Delivery Oxygen Flow Rate 11/13/24 20:00 11/13/24 20:00 11/13/24 22:29 Temperature 97.0 F L 97.0 F L Pulse Rate 87 87 Respiratory Rate 17 17 Blood Pressure 125/63 125/63 Pulse Oximetry 96 96 96 Oxygen Delivery Nasal Cannula Oxygen Flow Rate 2 11/14/24 00:00 11/14/24 02:49 11/14/24 05:51 Temperature 97.4 F L 99.2 F 97.5 F L Pulse Rate 78 79 68 Respiratory Rate 16 14 14 Blood Pressure 124/48 L 107/57 L 116/44 L Pulse Oximetry 96 96 98 Oxygen Delivery Oxygen Flow Rate 11/14/24 08:33 11/14/24 08:46 Temperature Pulse Rate 78 Respiratory Rate 20 Blood Pressure Pulse Oximetry 92 Oxygen Delivery Nasal Cannula Nasal Cannula Oxygen Flow Rate 1 1 Intake/Output Intake/Output: Intake & Output 11/11/24 11/12/24 11/13/24 11/14/24 23:59 23:59 23:59 23:59 Intake Total 400 250 Output Total 850 Balance 400 -600 Meds/Results Medications: Active Medications Generic Name Dose Route Start Last Admin Trade Name Freq PRN Reason Stop Dose Admin Hydrocodone Bitart/Acetaminophen 1 tab 11/13/24 17:04 11/14/24 01:17 Hydrocodone/Acetaminophen (*Crx) 5-325 Mg Tablet PO 1 tab Q4H PRN Administration Pain Rated 4-6 Hydrocodone Bitart/Acetaminophen 1 tab 11/13/24 17:04 11/14/24 08:49 Hydrocodone/Acetaminophen (*Crx) 7.5-325 Mg Tablet PO 1 tab Q4H PRN Administration Pain Rated 7-10 Alendronate Sodium 70 mg 11/16/24 09:00 Alendronate Sodium 70 Mg Tablet PO WEEKLY BEN Aspirin 81 mg 11/14/24 09:00 11/14/24 08:47 Aspirin 81 Mg Enteric Tablet PO 81 mg DAILY BEN Administration Bisacodyl 5 mg 11/13/24 13:42 Bisacodyl 5 Mg Tablet Ec PO DAILY PRN Constipation Clopidogrel Bisulfate 75 mg 11/14/24 09:00 11/14/24 08:47 Clopidogrel Bisulfate 75 Mg Tablet PO 75 mg DAILY BEN Administration Fentanyl Citrate 25 mcg 11/13/24 15:59 11/13/24 16:15 Fentanyl Citrate Inj (*Crx) 100 Mcg/2 Ml Vial IV PUSH 25 mcg Q2M PRN Administration Pain Hydromorphone HCl 1 mg 11/13/24 17:04 Hydromorphone Hcl Inj (*Crx) 1 Mg/Ml Syr IV PUSH Q2H PRN Breakthrough Pain Rated 7-10 or NPO Hydromorphone HCl 0.5 mg 11/13/24 17:04 11/14/24 02:18 Hydromorphone Hcl Inj (*Crx) 1 Mg/Ml Syr IV PUSH 0.5 mg Q2H PRN Administration Breakthrough Pain Rated 4-6 or NPO Hydroxyzine Pamoate 50 mg 11/13/24 17:04 Hydroxyzine Pamoate 25 Mg Capsule PO Q4H PRN Itching Lactated Ringer's 1,000 mls @ 30 mls/hr 11/13/24 16:00 11/13/24 16:55 Lr - Lactated Ringers Iv IV CONT Infused .Q24H BEN Infusion Sodium Chloride 1,000 mls @ 125 mls/hr 11/13/24 17:04 11/13/24 17:52 Normal Saline Iv IV CONT 125 mls/hr .Q8H BEN Administration Cefazolin Sodium 2 gm in 50 mls @ 100 mls/hr 11/13/24 22:00 11/14/24 05:58 Ancef 2 Gm/D5w 50 Ml IVPB 11/14/24 14:29 Infused Q8H BEN Infusion Ibuprofen 800 mg in 200 mls @ 400 mls/hr 11/13/24 17:04 Caldolor 800 Mg/200 Ml IVPB Q6H PRN Breakthrough Pain Rated 1-3 or NPO Lisinopril 10 mg 11/14/24 09:00 11/14/24 08:47 Lisinopril 10 Mg Tablet PO 10 mg DAILY BEN Administration Miscellaneous Information 0 each 11/13/24 00:01 Cyanocobalamin 100mcg Nonform Hold While Here Or We Stock 250mcg XX 12/13/24 00:00 CLARIFY BEN Naloxone HCl 0.1 mg 11/13/24 13:42 Naloxone Hcl 0.4 Mg/Ml Vial IV PUSH Q2M PRN Opiate Reversal Naloxone HCl 0.1 mg 11/13/24 17:04 Naloxone Hcl 0.4 Mg/Ml Vial IV PUSH Q2M PRN Opiate Reversal Non-Formulary Medication 100 mcg 11/14/24 09:00 Cyanocobalamin (Vitamin B-12) PO 12/14/24 08:59 DAILY BEN Ondansetron HCl 4 mg 11/13/24 13:42 Ondansetron Inj 4 Mg/2 Ml Vial IV PUSH Q6H PRN Nausea And Vomiting Ondansetron HCl 4 mg 11/13/24 15:59 Ondansetron Inj 4 Mg/2 Ml Vial IV PUSH ONCE PRN Nausea Ondansetron HCl 4 mg 11/13/24 17:04 11/13/24 18:01 Ondansetron Inj 4 Mg/2 Ml Vial IV PUSH 4 mg Q4H PRN Administration Nausea And Vomiting Pantoprazole Sodium 40 mg 11/14/24 09:00 11/14/24 08:47 Pantoprazole 40 Mg Tablet PO 40 mg QAM BEN Administration Polyethylene Glycol 17 gm 11/14/24 09:00 11/14/24 08:47 Polyethylene Glycol 3350 17 Gm Powd.Pack PO 17 gm QAM BEN Administration Senna/Docusate Sodium 2 tab 11/13/24 17:04 11/14/24 08:47 Senna/Docusate Sodium Tablet PO 2 tab BID BEN Administration Simvastatin 20 mg 11/14/24 09:00 11/14/24 08:48 Simvastatin 20 Mg Tablet PO 20 mg QAM BEN Administration Tramadol HCl 50 mg 11/13/24 17:04 Tramadol Hcl (*Crx) 50 Mg Tablet PO Q4H PRN Pain Rated 1-3 Radiology Results: ITS Impressions Lumbar Spine CT 11/13/24 09:08 IMPRESSION: 1. Mild lumbar spondylosis. 2. 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 2. A few tiny nonobstructing left renal stones. Hip/Pelvis X-Ray 11/13/24 09:23 IMPRESSION: 1. Posteriorly impacted subcapital fracture of the proximal right femur. Knee X-Ray 11/13/24 09:27 IMPRESSION: 1. Mild tricompartmental osteoarthritis at the right knee. No joint effusion or acute osseous abnormality. Wrist X-Ray 11/13/24 09:29 IMPRESSION: 1. Dorsally impacted comminuted distal metaphyseal fracture of the right radius. 2. 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 Chest X-Ray 11/13/24 09:51 IMPRESSION: No acute process. COPD. Intraoperative X-Ray 11/14/24 08:44 IMPRESSION: 1. Unchanged near-anatomic alignment post screw fixation of an impacted subcapital fracture of the proximal right femur. 2. Moderate to severe right hip osteoarthritis. Labs Labs: Laboratory Results - last 24 hr 11/13/24 11/13/24 11/13/24 09:41 10:11 10:36 WBC 14.7 H RBC 3.63 L Hgb 11.0 L Hct 34.5 L MCV 95.0 MCH 30.3 MCHC 31.9 L RDW 14.6 H Plt Count 335 MPV 10.8 H Immature Gran % (Auto) 0.5 Neut % (Auto) 59.2 Lymph % (Auto) 28.1 [place] % (Auto) 8.5 Eos % (Auto) 2.7 Baso % (Auto) 1.0 Lymph # (Auto) 4.12 H [place] # (Auto) 1.3 H Eos # (Auto) 0.4 H Baso # (Auto) 0.1 Abs Immat Gran (auto) 0.07 H Absolute Neuts (auto) 8.7 H Absolute Nucleated RBC 0.020 H Nucleated RBC % 0.1 PT 13.7 INR 1.0 APTT 23.2 Sodium 141 Potassium 3.8 Chloride 105 Carbon Dioxide 24 Anion Gap 12 BUN 26 H Creatinine 1.23 H Estim Creat Clear Calc 28 Estimated GFR 42 L Glucose 101 Calcium 9.7 Total Bilirubin 0.7 AST 24 ALT 15 Alkaline Phosphatase 67 Total Protein 8.0 Albumin 4.4 Urine Color Yellow Urine Appearance Clear Urine pH 6.0 Ur Specific [place] 1.021 Urine Protein Trace Urine Glucose (UA) Negative Urine Ketones Trace H Ur Blood (Man) Negative Urine Nitrate Negative Urine Bilirubin Negative Urine Urobilinogen 1.0 Leukocyte Esterase Rfl Negative Urine RBC 0-2 Urine WBC 0-5 Ur Squamous Epith Cells None seen Urine Bacteria None seen Urine Casts 0-2 Influenza A (RT-PCR) Negative Influenza B (RT-PCR) Negative RSV (RT-PCR) Negative SARS-CoV-2 RNA (RT-PCR) Negative Blood Type Antibody Screen 11/13/24 11/14/24 14:10 06:11 WBC 18.1 H RBC 3.42 L Hgb 10.5 L Hct 33.1 L MCV 96.8 MCH 30.7 MCHC 31.7 L RDW 14.7 H Plt Count 302 MPV 10.6 H Immature Gran % (Auto) 0.7 H Neut % (Auto) 67.8 Lymph % (Auto) 19.9 [place] % (Auto) 10.9 H Eos % (Auto) 0.3 Baso % (Auto) 0.4 Lymph # (Auto) 3.59 H [place] # (Auto) 2.0 H Eos # (Auto) 0.1 Baso # (Auto) 0.1 Abs Immat Gran (auto) 0.12 H Absolute Neuts (auto) 12.3 H Absolute Nucleated RBC 0.030 H Nucleated RBC % 0.2 PT INR APTT Sodium 138 Potassium 4.4 Chloride 107 Carbon Dioxide 21 L Anion Gap 10 BUN 22 H Creatinine 1.24 H Estim Creat Clear Calc 28 Estimated GFR 41 L Glucose 106 Calcium 9.4 Total Bilirubin AST ALT Alkaline Phosphatase Total Protein Albumin Urine Color Urine Appearance Urine pH Ur Specific [place] Urine Protein Urine Glucose (UA) Urine Ketones Ur Blood (Man) Urine Nitrate Urine Bilirubin Urine Urobilinogen Leukocyte Esterase Rfl Urine RBC Urine WBC Ur Squamous Epith Cells Urine Bacteria Urine Casts Influenza A (RT-PCR) Influenza B (RT-PCR) RSV (RT-PCR) SARS-CoV-2 RNA (RT-PCR) Blood Type O Positive Antibody Screen Negative Quality VTE Prophylaxis VTE prophylaxis: mechanical ordered
[2024-11-14] MEDS: HYDROmorphone HCL INJ (*CRX) 1 MG/ML SYR IV PUSH (15:50)
[2024-11-14] MEDS: IBUPROFEN IV 800 MG/200 ML 800 MG/200 ML BAG 400 MG IVPB (15:51)
[2024-11-15] MEDS: HYDROcodone/acetaminophen (*CRX) 5-325 MG TABLET 1 TAB PO (03:25)
[2024-11-15 03:54] VITALS: BP 145/52; PULSE 99; RESP 20; TEMP 36.7; O2SAT 94
[2024-11-15 05:45] VITALS: O2SAT 91
[2024-11-15 08:00] VITALS: BP 122/46; PULSE 80; RESP 16; TEMP 36.4; O2SAT 91
[2024-11-15 09:09] LABS: Hematocrit 31.6 % (37.0-47.0); Hemoglobin 10.1 g/dL (12.0-15.0); Mean Corpuscular Hemoglobin 30.3 pg (26-34); Mean Corpuscular Volume 94.9 fl (80-100); Mean Platelet Volume 10.7 fl (7.4-10.4); Platelet Count Result 298 k/mm3 (150-375); Red Blood Count 3.33 M/mm3 (4.2-5.4); Red Cell Distribution Width 14.7 % (11.5-14.5)
[2024-11-15 09:16] LABS: Anion Gap 10 mmol/L (4-12); Blood Urea Nitrogen 22 mg/dL (7-17); Calcium 9.5 mg/dL (8.4-10.2); Carbon Dioxide 23 mmol/L (22-30); Chloride 106 mmol/L (98-107); Estimated CRCL calculation 31 ml/min; Estimated Glomerular Filt Rate 46; Glucose 92 mg/dL (65-110); Potassium 4.4 mmol/L (3.4-5.0); Sodium 139 mmol/L (137-145)
[2024-11-15] MEDS: SIMVASTATIN 20 MG TABLET PO (09:31)
[2024-11-15] MEDS: ASPIRIN 81 MG ENTERIC TABLET PO (09:31)
[2024-11-15] MEDS: traMADol HCL (*CRX) 50 MG TABLET PO (09:31)
[2024-11-15] MEDS: lisinopriL 10 MG TABLET PO (09:32)
[2024-11-15] MEDS: PANTOPRAZOLE 40 MG TABLET PO (09:33)
[2024-11-15] MEDS: polyethylene glycoL 3350 17 GM POWD.PACK PO (09:33)
[2024-11-15] MEDS: SENNA/DOCUSATE SODIUM TABLET 2 TAB PO ×2 (09:34→18:11)
[2024-11-15] MEDS: CLOPIDOGREL BISULFATE 75 MG TABLET PO (09:34)
[2024-11-15 14:00] VITALS: BP 160/65; PULSE 86; RESP 18; TEMP 36.9; O2SAT 92
--- NOTE | 2024-11-15 14:02 | P.PNIM_ITS ---
Progress Note: A&P Assessment and Plan (1) Fracture of femoral neck, right: Qualifiers: Encounter type: initial encounter Fracture type: closed Qualified Code(s): S72.001A - Fracture of unspecified part of neck of right femur, initial encounter for closed fracture Code(s): S72.001A - Fracture of unspecified part of neck of right femur, initial encounter for closed fracture Status: Acute Assessment and Plan: Hip/pelvic XR showed a posterior impacted subcapital fracture of the proximal right femur. Orthopedics consulted, Juan José WALKER. provider recommended open reduction internal fixation, if unsuccessful may try bipolar. Patient is agreeable to surgical management. Analgesics and antiemetics p.r.n.. Monitor labs. PT/OT evaluation and treatment postop and care coordination postop for possible rehab. S/P pinning of Left Femoral Neck FX with Dr Can today 11/15 doing well, working with pt/ot (2) Colles' fracture of right radius: Qualifiers: Encounter type: initial encounter Fracture type: closed Qualified Code(s): S52.531A - Colles' fracture of right radius, initial encounter for closed fracture Code(s): S52.531A - Colles' fracture of right radius, initial encounter for closed fracture Status: Acute Assessment and Plan: R wrist XR showed a dorsally impacted comminuted distal metaphyseal fracture of the right radius. Orthopedics consulted, recommended attempted reduction of right wrist. Brace in place. Analgesics p.r.n.. PT/OT/care coordination consulted for possible rehab. Plan NOted elevated wbc. Pt needs to use IS and get out of bed at least TID to prevent developing pneumonia, aware, IS is ordered. Diet: resume diet-heart healthy GI Prophylaxis: Not currently indicated DVT Prophylaxis: SCDs Lines: Peripheral Code Status: Full code Time Spent With Patient Time with patient: 25 - 35 minutes Subjective Date/time seen: 11/15/24 14:02 Interval history: 84 y/o F with PMH of thoracic aortic aneurysm s/p repair (07/2023), HLD, carotid artery stenosis, COPD, GERD, arthritis, dementia, and osteoporosis presents here with a ground level fall. The patient presents here via EMS from for further evaluation after a ground level fall. She reports this morning she was walking when her right leg became weak and gave out . She reports history of neuropathy affecting her right leg. She reports she fell backwards and onto her right hip and right arm. She denies head strike or loss of consciousness. Post fall she is reporting pain to her right hip, right arm, and right wrist. She denies any prodrome, presyncope symptoms prior to fall. She denies nausea, vomiting, diarrhea, fever, cough, shortness of breath, chest pain, or abdominal pain. Initial VS at presentation: 97.8? F, HR 77, R 13, 143/58, and 99% on RA. ED workup showed: WBC 14.7, hemoglobin 11.0, normal coags, creatinine 1.23 and GFR 42 (at baseline), UA showed trace ketones otherwise unremarkable, viral PCR negative. 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 Hip/pelvic XR showed posterior impacted subcapital fracture of the proximal right femur. Knee XR showed mild tricompartmental osteoarthritis of the right knee, no joint effusion or acute osseous abnormality. 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 CXR showed no acute process, COPD. 11/14- S/P pinning of Left Femoral Neck FX with Dr Can. PT/OT today. Pt is resting in bed. She is very talkative. Pain is an issue. Needs to get out of bed, use IS. 11/15 pt is seen and examined. PT is somewhat confused as she thinks she was [employer] O fir a race but able to answer all of orientation questions correctly. pain is controlled. reports nausea. Exam Const: Other: , female, elderly, nontoxic appearance Cardio: Other: S1-S2 present without murmur, rub, ectopy GI: Other: Abdomen soft, nondistended, nontender. Normoactive bowel sounds in all lashanda drants. Neuro: Other: A&O x3-4, some short term memory difficulty requiring redirection Extrem: Other: splint to RUE, fingers warm, and dry. cap refill brisk. DP pulse strong bilaterally. right hip tenderness with palpation. Psych: Other: fair insight and judgement, pleasant. Objective Data Vital Signs Vital Signs: Vital Signs - 24 hr 11/14/24 14:49 11/14/24 16:00 11/14/24 20:00 Temperature 97.6 F 97.6 F 98.1 F Pulse Rate 78 78 82 Respiratory Rate 18 18 18 Blood Pressure 112/52 L 112/52 L 118/69 Pulse Oximetry 97 97 92 Oxygen Delivery 11/14/24 23:53 11/15/24 03:54 11/15/24 05:45 Temperature 98.0 F 98.1 F Pulse Rate 112 H 99 Respiratory Rate 18 20 Blood Pressure 146/62 H 145/52 H Pulse Oximetry 93 94 91 Oxygen Delivery Room Air 11/15/24 08:00 Temperature 97.6 F Pulse Rate 80 Respiratory Rate 16 Blood Pressure 122/46 L Pulse Oximetry 91 Oxygen Delivery Intake/Output Intake/Output: Intake & Output 11/12/24 11/13/24 11/14/24 11/15/24 23:59 23:59 23:59 23:59 Intake Total 400 1490 894 Output Total 2150 400 Balance 400 -660 494 Meds/Results Medications: Active Medications Generic Name Dose Route Start Last Admin Trade Name Freq PRN Reason Stop Dose Admin Hydrocodone Bitart/Acetaminophen 1 tab 11/13/24 17:04 11/14/24 08:49 Hydrocodone/Acetaminophen (*Crx) 7.5-325 Mg Tablet PO 1 tab Q4H PRN Administration Pain Rated 7-10 Hydrocodone Bitart/Acetaminophen 1 tab 11/14/24 14:39 11/15/24 03:25 Hydrocodone/Acetaminophen (*Crx) 5-325 Mg Tablet PO 1 tab Q4H PRN Administration Pain Rated 4-6 Alendronate Sodium 70 mg 11/16/24 09:00 Alendronate Sodium 70 Mg Tablet PO WEEKLY BEN Aspirin 81 mg 11/14/24 09:00 11/15/24 09:31 Aspirin 81 Mg Enteric Tablet PO 81 mg DAILY BEN Administration Bisacodyl 5 mg 11/13/24 13:42 Bisacodyl 5 Mg Tablet Ec PO DAILY PRN Constipation Clopidogrel Bisulfate 75 mg 11/14/24 09:00 11/15/24 09:34 Clopidogrel Bisulfate 75 Mg Tablet PO 75 mg DAILY BEN Administration Fentanyl Citrate 25 mcg 11/13/24 15:59 11/13/24 16:15 Fentanyl Citrate Inj (*Crx) 100 Mcg/2 Ml Vial IV PUSH 25 mcg Q2M PRN Administration Pain Hydromorphone HCl 1 mg 11/13/24 17:04 11/14/24 15:50 Hydromorphone Hcl Inj (*Crx) 1 Mg/Ml Syr IV PUSH 1 mg Q2H PRN Administration Breakthrough Pain Rated 7-10 or NPO Hydromorphone HCl 0.5 mg 11/13/24 17:04 11/14/24 02:18 Hydromorphone Hcl Inj (*Crx) 1 Mg/Ml Syr IV PUSH 0.5 mg Q2H PRN Administration Breakthrough Pain Rated 4-6 or NPO Hydroxyzine Pamoate 50 mg 11/13/24 17:04 Hydroxyzine Pamoate 25 Mg Capsule PO Q4H PRN Itching Ibuprofen 800 mg in 200 mls @ 400 mls/hr 11/13/24 17:04 11/14/24 15:51 Caldolor 800 Mg/200 Ml IVPB 400 mls/hr Q6H PRN Administration Breakthrough Pain Rated 1-3 or NPO Lisinopril 10 mg 11/14/24 09:00 11/15/24 09:32 Lisinopril 10 Mg Tablet PO 10 mg DAILY BEN Administration Naloxone HCl 0.1 mg 11/13/24 13:42 Naloxone Hcl 0.4 Mg/Ml Vial IV PUSH Q2M PRN Opiate Reversal Naloxone HCl 0.1 mg 11/13/24 17:04 Naloxone Hcl 0.4 Mg/Ml Vial IV PUSH Q2M PRN Opiate Reversal Non-Formulary Medication 1 each 11/15/24 13:42 Nonformulary Nutritional Supplement XX 11/16/24 13:41 PRN PRN PROTOCOL Ondansetron HCl 4 mg 11/13/24 13:42 Ondansetron Inj 4 Mg/2 Ml Vial IV PUSH Q6H PRN Nausea And Vomiting Ondansetron HCl 4 mg 11/13/24 15:59 Ondansetron Inj 4 Mg/2 Ml Vial IV PUSH ONCE PRN Nausea Ondansetron HCl 4 mg 11/13/24 17:04 11/13/24 18:01 Ondansetron Inj 4 Mg/2 Ml Vial IV PUSH 4 mg Q4H PRN Administration Nausea And Vomiting Pantoprazole Sodium 40 mg 11/14/24 09:00 11/15/24 09:33 Pantoprazole 40 Mg Tablet PO 40 mg QAM BEN Administration Polyethylene Glycol 17 gm 11/14/24 09:00 11/15/24 09:33 Polyethylene Glycol 3350 17 Gm Powd.Pack PO 17 gm QAM BEN Administration Senna/Docusate Sodium 2 tab 11/13/24 17:04 11/15/24 09:34 Senna/Docusate Sodium Tablet PO 2 tab BID BEN Administration Simvastatin 20 mg 11/14/24 09:00 11/15/24 09:31 Simvastatin 20 Mg Tablet PO 20 mg QAM BEN Administration Tramadol HCl 50 mg 11/13/24 17:04 11/15/24 09:31 Tramadol Hcl (*Crx) 50 Mg Tablet PO 50 mg Q4H PRN Administration Pain Rated 1-3 Radiology Results: ITS Impressions Lumbar Spine CT 11/13/24 09:08 IMPRESSION: 1. Mild lumbar spondylosis. 2. 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 2. A few tiny nonobstructing left renal stones. Hip/Pelvis X-Ray 11/13/24 09:23 IMPRESSION: 1. Posteriorly impacted subcapital fracture of the proximal right femur. Knee X-Ray 11/13/24 09:27 IMPRESSION: 1. Mild tricompartmental osteoarthritis at the right knee. No joint effusion or acute osseous abnormality. Wrist X-Ray 11/13/24 09:29 IMPRESSION: 1. Dorsally impacted comminuted distal metaphyseal fracture of the right radius. 2. 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 Intraoperative X-Ray 11/14/24 08:44 IMPRESSION: 1. Unchanged near-anatomic alignment post screw fixation of an impacted subcapital fracture of the proximal right femur. 2. Moderate to severe right hip osteoarthritis. Labs Labs: Laboratory Results - last 24 hr 11/15/24 08:43 WBC 18.0 H RBC 3.33 L Hgb 10.1 L Hct 31.6 L MCV 94.9 MCH 30.3 MCHC 32.0 RDW 14.7 H Plt Count 298 MPV 10.7 H Sodium 139 Potassium 4.4 Chloride 106 Carbon Dioxide 23 Anion Gap 10 BUN 22 H Creatinine 1.12 H Estim Creat Clear Calc 31 Estimated GFR 46 L Glucose 92 Calcium 9.5 Quality VTE Prophylaxis VTE prophylaxis: mechanical ordered
[2024-11-15] MEDS: IBUPROFEN IV 800 MG/200 ML 800 MG/200 ML BAG 400 MG IVPB (20:06)
[2024-11-15] MEDS: HYDROmorphone HCL INJ (*CRX) 1 MG/ML SYR IV PUSH (20:50)
[2024-11-15 21:25] VITALS: BP 144/67; PULSE 92; RESP 18; TEMP 36.5; O2SAT 92
[2024-11-16 06:00] VITALS: BP 138/66; PULSE 81; RESP 18; TEMP 36.4; O2SAT 93
[2024-11-16] MEDS: lisinopriL 10 MG TABLET PO (09:53)
[2024-11-16] MEDS: CLOPIDOGREL BISULFATE 75 MG TABLET PO (09:53)
[2024-11-16] MEDS: ASPIRIN 81 MG ENTERIC TABLET PO (09:54)
[2024-11-16] MEDS: PANTOPRAZOLE 40 MG TABLET PO (09:54)
[2024-11-16] MEDS: SIMVASTATIN 20 MG TABLET PO (09:54)
[2024-11-16] MEDS: traMADol HCL (*CRX) 50 MG TABLET PO (09:54)
[2024-11-16] MEDS: ALENDRONATE SODIUM 70 MG TABLET PO (09:58)
--- NOTE | 2024-11-16 11:59 | PCOTNOTE ---
RN request to see pt later today if possible due to pt c/o increase pain at this time and having frequent bm and pt being very agitated.
[2024-11-16] MEDS: HYDROmorphone HCL INJ (*CRX) 1 MG/ML SYR IM (12:28)
[2024-11-16] MEDS: busPIRone HCL 2.5 MG TABLET PO ×2 (12:29→22:15)
[2024-11-16 14:00] VITALS: BP 102/47; PULSE 88; RESP 20; TEMP 36.2; O2SAT 94
--- NOTE | 2024-11-16 14:34 | PM.IMPN ---
Progress Note: A&P Assessment and Plan (1) Fracture of femoral neck, right: Qualifiers: Encounter type: initial encounter Fracture type: closed Qualified Code(s): S72.001A - Fracture of unspecified part of neck of right femur, initial encounter for closed fracture Code(s): S72.001A - Fracture of unspecified part of neck of right femur, initial encounter for closed fracture Status: Acute Assessment and Plan: Hip/pelvic XR showed a posterior impacted subcapital fracture of the proximal right femur. Orthopedics consulted, Juan José WALKER. provider recommended open reduction internal fixation, if unsuccessful may try bipolar. Patient is agreeable to surgical management. Analgesics and antiemetics p.r.n.. Monitor labs. PT/OT evaluation and treatment postop and care coordination postop for possible rehab. S/P pinning of Left Femoral Neck FX with Dr Can today 11/15 doing well, working with pt/ot (2) Colles' fracture of right radius: Qualifiers: Encounter type: initial encounter Fracture type: closed Qualified Code(s): S52.531A - Colles' fracture of right radius, initial encounter for closed fracture Code(s): S52.531A - Colles' fracture of right radius, initial encounter for closed fracture Status: Acute Assessment and Plan: R wrist XR showed a dorsally impacted comminuted distal metaphyseal fracture of the right radius. Orthopedics consulted, recommended attempted reduction of right wrist. Brace in place. Analgesics p.r.n.. PT/OT/care coordination consulted for possible rehab. Plan NOted elevated wbc. Pt needs to use IS and get out of bed at least TID to prevent developing pneumonia, aware, IS is ordered. WBC stable. NO s/s of pneumonia or concerns for it. chest xray repeated- normal. Diet: resume diet-heart healthy GI Prophylaxis: Not currently indicated DVT Prophylaxis: SCDs Lines: Peripheral Code Status: Full code Time Spent With Patient Time with patient: 25 - 35 minutes Subjective Date/time seen: 11/16/24 14:34 Interval history: 84 y/o F with PMH of thoracic aortic aneurysm s/p repair (07/2023), HLD, carotid artery stenosis, COPD, GERD, arthritis, dementia, and osteoporosis presents here with a ground level fall. The patient presents here via EMS from for further evaluation after a ground level fall. She reports this morning she was walking when her right leg became weak and gave out . She reports history of neuropathy affecting her right leg. She reports she fell backwards and onto her right hip and right arm. She denies head strike or loss of consciousness. Post fall she is reporting pain to her right hip, right arm, and right wrist. She denies any prodrome, presyncope symptoms prior to fall. She denies nausea, vomiting, diarrhea, fever, cough, shortness of breath, chest pain, or abdominal pain. Initial VS at presentation: 97.8? F, HR 77, R 13, 143/58, and 99% on RA. ED workup showed: WBC 14.7, hemoglobin 11.0, normal coags, creatinine 1.23 and GFR 42 (at baseline), UA showed trace ketones otherwise unremarkable, viral PCR negative. 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 Hip/pelvic XR showed posterior impacted subcapital fracture of the proximal right femur. Knee XR showed mild tricompartmental osteoarthritis of the right knee, no joint effusion or acute osseous abnormality. 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 CXR showed no acute process, COPD. 11/14- S/P pinning of Left Femoral Neck FX with Dr Can. PT/OT today. Pt is resting in bed. She is very talkative. Pain is an issue. Needs to get out of bed, use IS. 11/15 pt is seen and examined. PT is somewhat confused as she thinks she was NPO for a race but able to answer all of orientation questions correctly. pain is controlled. reports nausea. 11/16pt is seen and examined. chest xray repeated. she is up in the chair, alert and pleasant. Exam Const: Other: , female, elderly, nontoxic appearance Cardio: Other: S1-S2 present without murmur, rub, ectopy GI: Other: Abdomen soft, nondistended, nontender. Normoactive bowel sounds in all quadrants. Neuro: Other: A&O x3-4, some short term memory difficulty requiring redirection Extrem: Other: splint to RUE, fingers warm, and dry. cap refill brisk. DP pulse strong bilaterally. right hip tenderness with palpation. Psych: Other: fair insight and judgement, pleasant. Objective Data Vital Signs Vital Signs: Vital Signs - 24 hr 11/15/24 20:00 11/15/24 21:25 11/16/24 06:00 Temperature 97.7 F 97.6 F Pulse Rate 92 81 Respiratory Rate 18 18 Blood Pressure 144/67 H 138/66 Pulse Oximetry 92 93 Oxygen Delivery Room Air 11/16/24 14:00 Temperature 97.2 F L Pulse Rate 88 Respiratory Rate 20 Blood Pressure 102/47 L Pulse Oximetry 94 Oxygen Delivery Intake/Output Intake/Output: Intake & Output 11/13/24 11/14/24 11/15/24 11/16/24 23:59 23:59 23:59 23:59 Intake Total 400 1690 1094 218 Output Total 2150 1400 200 Balance 400 -460 -306 18 Meds/Results Medications: Active Medications Generic Name Dose Route Start Last Admin Trade Name Freq PRN Reason Stop Dose Admin Hydrocodone Bitart/Acetaminophen 1 tab 11/13/24 17:04 11/14/24 08:49 Hydrocodone/Acetaminophen (*Crx) 7.5-325 Mg Tablet PO 1 tab Q4H PRN Administration Pain Rated 7-10 Hydrocodone Bitart/Acetaminophen 1 tab 11/14/24 14:39 11/15/24 03:25 Hydrocodone/Acetaminophen (*Crx) 5-325 Mg Tablet PO 1 tab Q4H PRN Administration Pain Rated 4-6 Alendronate Sodium 70 mg 11/16/24 09:00 11/16/24 09:58 Alendronate Sodium 70 Mg Tablet PO 70 mg WEEKLY BEN Administration Aspirin 81 mg 11/14/24 09:00 11/16/24 09:54 Aspirin 81 Mg Enteric Tablet PO 81 mg DAILY BEN Administration Bisacodyl 5 mg 11/13/24 13:42 Bisacodyl 5 Mg Tablet Ec PO DAILY PRN Constipation Buspirone HCl 2.5 mg 11/16/24 12:30 11/16/24 12:29 Buspirone Hcl 2.5 Mg Tablet PO 2.5 mg Q12HR BEN Administration Clopidogrel Bisulfate 75 mg 11/14/24 09:00 11/16/24 09:53 Clopidogrel Bisulfate 75 Mg Tablet PO 75 mg DAILY BEN Administration Fentanyl Citrate 25 mcg 11/13/24 15:59 11/13/24 16:15 Fentanyl Citrate Inj (*Crx) 100 Mcg/2 Ml Vial IV PUSH 25 mcg Q2M PRN Administration Pain Hydromorphone HCl 1 mg 11/13/24 17:04 11/15/24 20:50 Hydromorphone Hcl Inj (*Crx) 1 Mg/Ml Syr IV PUSH 1 mg Q2H PRN Administration Breakthrough Pain Rated 7-10 or NPO Hydromorphone HCl 0.5 mg 11/13/24 17:04 11/14/24 02:18 Hydromorphone Hcl Inj (*Crx) 1 Mg/Ml Syr IV PUSH 0.5 mg Q2H PRN Administration Breakthrough Pain Rated 4-6 or NPO Hydroxyzine Pamoate 50 mg 11/13/24 17:04 Hydroxyzine Pamoate 25 Mg Capsule PO Q4H PRN Itching Ibuprofen 800 mg in 200 mls @ 400 mls/hr 11/13/24 17:04 11/15/24 21:06 Caldolor 800 Mg/200 Ml IVPB Infused Q6H PRN Infusion Breakthrough Pain Rated 1-3 or NPO Lisinopril 10 mg 11/14/24 09:00 11/16/24 09:53 Lisinopril 10 Mg Tablet PO 10 mg DAILY BEN Administration Naloxone HCl 0.1 mg 11/13/24 13:42 Naloxone Hcl 0.4 Mg/Ml Vial IV PUSH Q2M PRN Opiate Reversal Naloxone HCl 0.1 mg 11/13/24 17:04 Naloxone Hcl 0.4 Mg/Ml Vial IV PUSH Q2M PRN Opiate Reversal Ondansetron HCl 4 mg 11/13/24 13:42 Ondansetron Inj 4 Mg/2 Ml Vial IV PUSH Q6H PRN Nausea And Vomiting Ondansetron HCl 4 mg 11/13/24 15:59 Ondansetron Inj 4 Mg/2 Ml Vial IV PUSH ONCE PRN Nausea Ondansetron HCl 4 mg 11/13/24 17:04 11/13/24 18:01 Ondansetron Inj 4 Mg/2 Ml Vial IV PUSH 4 mg Q4H PRN Administration Nausea And Vomiting Pantoprazole Sodium 40 mg 11/14/24 09:00 11/16/24 09:54 Pantoprazole 40 Mg Tablet PO 40 mg QAM BEN Administration Polyethylene Glycol 17 gm 11/14/24 09:00 11/15/24 09:33 Polyethylene Glycol 3350 17 Gm Powd.Pack PO 17 gm QAM BEN Administration Senna/Docusate Sodium 2 tab 11/13/24 17:04 11/15/24 18:11 Senna/Docusate Sodium Tablet PO 2 tab BID BEN Administration Simvastatin 20 mg 11/14/24 09:00 11/16/24 09:54 Simvastatin 20 Mg Tablet PO 20 mg QAM BEN Administration Tramadol HCl 50 mg 11/13/24 17:04 11/16/24 09:54 Tramadol Hcl (*Crx) 50 Mg Tablet PO 50 mg Q4H PRN Administration Pain Rated 1-3 Radiology Results: ITS Impressions Lumbar Spine CT 11/13/24 09:08 IMPRESSION: 1. Mild lumbar spondylosis. 2. 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 2. A few tiny nonobstructing left renal stones. Hip/Pelvis X-Ray 11/13/24 09:23 IMPRESSION: 1. Posteriorly impacted subcapital fracture of the proximal right femur. Knee X-Ray 11/13/24 09:27 IMPRESSION: 1. Mild tricompartmental osteoarthritis at the right knee. No joint effusion or acute osseous abnormality. Wrist X-Ray 11/13/24 09:29 IMPRESSION: 1. Dorsally impacted comminuted distal metaphyseal fracture of the right radius. 2. 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 Intraoperative X-Ray 11/14/24 08:44 IMPRESSION: 1. Unchanged near-anatomic alignment post screw fixation of an impacted subcapital fracture of the proximal right femur. 2. Moderate to severe right hip osteoarthritis. Chest X-Ray 11/16/24 13:43 IMPRESSION: No acute cardiopulmonary pathology. Quality VTE Prophylaxis VTE prophylaxis: mechanical ordered
[2024-11-16] MEDS: HYDROcodone/acetaminophen (*CRX) 7.5-325 MG TABLET 1 TAB PO (16:43)
--- NOTE | 2024-11-16 19:45 | PC.NURSE ---
Hospitalist requested that this RN call orthopedist for anticoagulation orders since pt has not been sufficiently anti-coagulated since surgery three days ago. Call made to orthopedist. states home medication plavix is sufficient for anticoagulation.
[2024-11-16 21:54] VITALS: BP 137/86; PULSE 87; RESP 18; TEMP 36.2; O2SAT 90
[2024-11-17 05:41] VITALS: BP 160/62; PULSE 86; RESP 18; TEMP 35.9; O2SAT 93
[2024-11-17] MEDS: SENNA/DOCUSATE SODIUM TABLET 2 TAB PO (08:43)
[2024-11-17] MEDS: HYDROcodone/acetaminophen (*CRX) 7.5-325 MG TABLET 1 TAB PO ×2 (08:43→16:21)
[2024-11-17] MEDS: SIMVASTATIN 20 MG TABLET PO (08:44)
[2024-11-17] MEDS: CLOPIDOGREL BISULFATE 75 MG TABLET PO (08:44)
[2024-11-17] MEDS: ASPIRIN 81 MG ENTERIC TABLET PO (08:44)
[2024-11-17] MEDS: PANTOPRAZOLE 40 MG TABLET PO (08:44)
[2024-11-17] MEDS: lisinopriL 10 MG TABLET PO (08:44)
[2024-11-17] MEDS: busPIRone HCL 2.5 MG TABLET PO ×2 (08:44→21:53)
[2024-11-17 09:44] LABS: Hematocrit 34.3 % (37.0-47.0); Hemoglobin 10.7 g/dL (12.0-15.0); Mean Corpuscular HGB Conc 31.2 g/dl (32-36); Mean Corpuscular Hemoglobin 30.3 pg (26-34); Mean Corpuscular Volume 97.2 fl (80-100); Mean Platelet Volume 10.8 fl (7.4-10.4); Platelet Count Result 293 k/mm3 (150-375); Red Blood Count 3.53 M/mm3 (4.2-5.4); Red Cell Distribution Width 14.9 % (11.5-14.5); White Blood Count 13.7 K/mm3 (4.5-10.0)
[2024-11-17 10:47] LABS: Anion Gap 13 mmol/L (4-12); Blood Urea Nitrogen 29 mg/dL (7-17); Calcium 9.1 mg/dL (8.4-10.2); Carbon Dioxide 20 mmol/L (22-30); Chloride 104 mmol/L (98-107); Estimated CRCL calculation 34 ml/min; Estimated Glomerular Filt Rate 52; Glucose 147 mg/dL (65-110); Potassium 3.5 mmol/L (3.4-5.0); Sodium 137 mmol/L (137-145)
[2024-11-17] MEDS: ENOXAPARIN 40 MG/0.4 ML SYRINGE SUB-Q (13:10)
--- NOTE | 2024-11-17 14:28 | PCOTNOTE ---
Attempted to see Patient this P.M. Patient refused to partivcipate, verbalized she already did therapy, in back to bed, very tired, and nauseated.
[2024-11-17] MEDS: ONDANSETRON HCL ODT 4 MG TABLET PO (14:40)
[2024-11-17 14:45] VITALS: BP 152/56; PULSE 78; RESP 14; TEMP 36.4; O2SAT 96
[2024-11-17 20:55] VITALS: BP 106/42; PULSE 85; RESP 20; TEMP 37.1; O2SAT 92
[2024-11-17] MEDS: traMADol HCL (*CRX) 50 MG TABLET PO (21:53)
[2024-11-18] MEDS: HYDROcodone/acetaminophen (*CRX) 7.5-325 MG TABLET 1 TAB PO ×2 (00:35→09:30)
[2024-11-18 05:15] VITALS: BP 134/53; PULSE 77; RESP 20; TEMP 36.1; O2SAT 97
--- NOTE | 2024-11-18 07:41 | PM.DS ---
DS: Admitting Diagnosis Discharge Date 11/18 Admitting Diagnosis fall DS: Discharge Diagnosis Discharge Diagnosis (1) Fracture of femoral neck, right: Qualifiers: Encounter type: initial encounter Fracture type: closed Qualified Code(s): S72.001A - Fracture of unspecified part of neck of right femur, initial encounter for closed fracture Code(s): S72.001A - Fracture of unspecified part of neck of right femur, initial encounter for closed fracture Status: Acute (2) Colles' fracture of right radius: Qualifiers: Encounter type: initial encounter Fracture type: closed Qualified Code(s): S52.531A - Colles' fracture of right radius, initial encounter for closed fracture Code(s): S52.531A - Colles' fracture of right radius, initial encounter for closed fracture Status: Acute DS: Summary Hospital Course Hospital Course: 84 y/o F with PMH of thoracic aortic aneurysm s/p repair (07/2023), HLD, carotid artery stenosis, COPD, GERD, arthritis, dementia, and osteoporosis presents here with a ground level fall. The patient presents here via EMS from for further evaluation after a ground level fall. She reports this morning she was walking when her right leg became weak and gave out . She reports history of neuropathy affecting her right leg. She reports she fell backwards and onto her right hip and right arm. She denies head strike or loss of consciousness. Post fall she is reporting pain to her right hip, right arm, and right wrist. She denies any prodrome, presyncope symptoms prior to fall. She denies nausea, vomiting, diarrhea, fever, cough, shortness of breath, chest pain, or abdominal pain. 11/13- S/P pinning of Left Femoral Neck FX Pt had been working with PT/OT. WBC had been elevated, pt didnot have any s/s of pneumonia. Was encouraged to ambulate AND USE is. wbc IS TRENDING DOWN NOW. She had some intermittent episodes of nausea and noted that if her pain is not well controlled, she gets irritated and confused. Per ortho, ok to continue asa and plavix and nothing more is needed for DVT prophylaxis (pt was on lovenox while here). She had BM this morning. Appetite is fair. Status at Discharge Functional status at discharge: uses cane/walker Overall status at discharge: patient is progressing back to baseline Time Spent with Patient Time attestation: Total time spent providing and/or coordinating discharge services: Time spent: Greater than 30 minutes Exam Const: General: comfortable Other: , female, elderly, nontoxic appearance Resp: Effort & Inspection: normal respiratory effort Cardio: Rate: regular rate Rhythm: regular rhythm Other: S1-S2 present without murmur, rub, ectopy GI: GI Palp: Yes Soft to palpation Other: Abdomen soft, nondistended, nontender. Normoactive bowel sounds in all quadrants. Neuro: Other: A&O x3-4, some short term memory difficulty requiring redirection Extrem: Other: cap refill brisk. DP pulse strong bilaterally. right hip tenderness with palpation. dressing c/d/i Psych: Affect: Anxious affect present Other: fair insight and judgement DS: Data Data Completed and Pending Completed studies during hospitalization: chest xray Labs on day of discharge: Labs from last 24 hours 11/17/24 09:38 WBC 13.7 H RBC 3.53 L Hgb 10.7 L Hct 34.3 L MCV 97.2 MCH 30.3 MCHC 31.2 L RDW 14.9 H Plt Count 293 MPV 10.8 H Sodium 137 Potassium 3.5 Chloride 104 Carbon Dioxide 20 L Anion Gap 13 H BUN 29 H Creatinine 1.01 H Estim Creat Clear Calc 34 Estimated GFR 52 L Glucose 147 H Calcium 9.1 Discharge Plan Discharge Attending physician on discharge: Kayley Shannon Consulting providers: Vincent Can; Zhanna Borden Discharging Clinician: Jada Jane Patient Disposition: SNF Activity: other - see discharge instructions Diet: heart healthy Discharge Instructions: Please follow discharge instructions provided to you per ortho team. Patient Language: Indonesian Stand Alone Forms: General Discharge Information Discharge Medications: New polyethylene glycol 3350 [Miralax] 17 gram Powder In Packet 17 g PO QAM Qty: 5 0RF tramadol 50 mg Tablet 50 mg PO Q4H PRN (Reason: Pain Rated 1-3) Qty: 12 0RF hydrocodone-acetaminophen 7.5-325 mg Tablet 1 tablet PO Q4H PRN (Reason: Pain Rated 7-10) Qty: 12 0RF bisacodyl [Laxative (bisacodyl)] 5 mg Tablet,Delayed Release (Dr/Ec) 5 mg PO DAILY PRN (Reason: Constipation) Qty: 12 0RF ondansetron 4 mg Tablet,Disintegrating 4 mg PO Q6H PRN (Reason: Nausea And Vomiting) Qty: 12 0RF Continued cyanocobalamin (vitamin B-12) 100 mcg tablet 100 mcg PO DAILY gabapentin 100 mg capsule 100 mg PO HS aspirin 81 mg tablet,delayed release (DR/EC) 81 mg PO DAILY alendronate 70 mg tablet 70 mg PO WEEKLY Qty: 13 3RF clopidogrel 75 mg tablet 75 mg PO DAILY Qty: 90 3RF pantoprazole 40 mg tablet,delayed release (DR/EC) 40 mg PO QAM Qty: 90 3RF lisinopril 10 mg tablet 10 mg PO DAILY Qty: 100 3RF simvastatin 20 mg tablet See Rx Instructions .ROUTE .COMPLEX Qty: 90 2RF Dose Instruction: Take 1 tablet by mouth once daily Rx Instructions: Take 1 tablet by mouth once daily Date of admission: 11/13/24 17:00 Primary Care Provider: Fernando Slaughter Admitting Provider: Uriah Mejia Attending physician on admission: Vincent Can Condition: Stable Quality VTE Prophylaxis VTE prophylaxis: mechanical ordered Hospitalist MIPS Heart Failure (Exclusion) Patient has history of Heart Transplant or Left Ventricular Assistive Device?: No IF YES, STOP HERE Heart Failure (Qualifier) Patient has current or prior documentation of LVEF less than or equal to 40%, or mod/servere depressed LVSF?: No IF NO, STOP HERE
[2024-11-18] MEDS: ASPIRIN 81 MG ENTERIC TABLET PO (09:29)
[2024-11-18] MEDS: ENOXAPARIN 40 MG/0.4 ML SYRINGE SUB-Q (09:29)
[2024-11-18] MEDS: SENNA/DOCUSATE SODIUM TABLET 2 TAB PO (09:29)
[2024-11-18] MEDS: ONDANSETRON HCL ODT 4 MG TABLET PO (09:29)
[2024-11-18] MEDS: hydrOXYzine pamoate 25 MG CAPSULE 50 MG PO (09:29)
[2024-11-18] MEDS: busPIRone HCL 2.5 MG TABLET PO (09:30)
[2024-11-18] MEDS: SIMVASTATIN 20 MG TABLET PO (09:30)
[2024-11-18] MEDS: lisinopriL 10 MG TABLET PO (09:30)
[2024-11-18] MEDS: PANTOPRAZOLE 40 MG TABLET PO (09:30)
[2024-11-18] MEDS: CLOPIDOGREL BISULFATE 75 MG TABLET PO (09:30)
== END 2024-11-18 14:20 | DRG 480 ==
LOC: ANHED 12:50 → ANH3MEDSUR 17:27
PROVIDERS: Orthopaedic Surgery; Student in an Organized Health Care Education/Training Program; Admitting Provider General Practice; Emergency Provider Emergency Medicine; PCP Internal Medicine; Visit Provider Nurse Practitioner
PROC: 0PSHXZZ Reposition Right Radius, External Approach (ICD-10-PCS; principal; 2024-11-13 13:30)
PROC: 0PSHXZZ Reposition Right Radius, External Approach (ICD-10-PCS; 2024-11-13 13:30)
DX: S52.531A Colles' fracture of right radius, initial encounter for closed fracture (principal); S72.011A Unspecified intracapsular fracture of right femur, initial encounter for closed fracture; E78.5 Hyperlipidemia, unspecified; F03.90 Unspecified dementia, unspecified severity, without behavioral disturbance, psychotic disturbance, mood disturbance, and anxiety; G62.9 Polyneuropathy, unspecified; J44.9 Chronic obstructive pulmonary disease, unspecified; K21.9 Gastro-esophageal reflux disease without esophagitis; M47.816 Spondylosis without myelopathy or radiculopathy, lumbar region; M17.11 Unilateral primary osteoarthritis, right knee; M19.041 Primary osteoarthritis, right hand; M81.0 Age-related osteoporosis without current pathological fracture; W18.30XA Fall on same level, unspecified, initial encounter; Z20.822 Contact with and (suspected) exposure to COVID-19; Z79.82 Long term (current) use of aspirin; Z79.02 Long term (current) use of antithrombotics/antiplatelets; Z87.891 Personal history of nicotine dependence
CPT/HCPCS: 36415; 71045; 72131; 73110; 73502; 73564; 80048; 80053; 81001; 85025; 85027; 85610; 85730; 86850; 86900; 86901; 87637; 93005; 96365; 96367; 96375; 96376; 97110; 97116; 97166; 97530; 97535; 99199; 99285; A9270; C1713; C1769; J0690; J1100; J1171; J1650; J1741; J2003; J2405; J2704; J3010; J7030; J7120

== ENCOUNTER 2025-01-10 06:36 | Emergency (ER) | payer MEDICARE, SELFPAY ==
--- NOTE | ~2025-01-10 | CT_ITS ---
EXAMINATION: CTA chest PE protocol DATE: 01/10/2025 07:45 INDICATION: Shortness of breath TECHNIQUE: Computed tomography (CT) pulmonary angiogram of the chest was performed with 100 mL Omnipa que-350 intravenous contrast. Additional 3D reconstructions utilizing coronal maximum intensity proje ction (MIP) were performed. Automated exposure control and iterative reconstruction technique were em ployed. The dose-length product was 183.61 mGy-cm. COMPARISON: Chest CT dated 07/05/2021 FINDINGS: No pulmonary embolism. Moderate emphysema. There are few small scattered calcified pulmonary nodules in the right lung consistent with old granulomatous disease. No pneumonia, pulmonary edema or pleural effusion. Heart size is normal. Atherosclerotic coronary artery calcification. No pericardial effusi on. No pathologically enlarged thoracic lymphadenopathy. There has been interval stenting of the recently descending thoracic aorta beginning at the 1 at the distal arch above level of the ha and extending caudally to the level of the celiac axis and span margarita an unchanged saccular aneurysm arises from the anterior aspect of the cephalad most abdominal ao rta near the thoracic hiatus. The AP diameter of the aorta and aneurysm at this level has increased f rom 5.0 to 5.5 cm. There appears to be a bypass graft arising from the left side of the infrarenal ao rta which anastomosis to the celiac axis and superior mesenteric artery, the latter also with additio nal endoluminal stent. Correlate with vascular surgery history. 2.7 cm and 3.0 cm exophytic cysts at the upper pole the left kidney. There are also 3 2-3 mm nonobstr ucting stones at the upper pole of the left kidney. Mild thoracic spondylosis with chronic T7 jose francisco jewel fracture with both central endplate depression and mild anterior wedging. IMPRESSION: 1. No pulmonary embolism or other acute cardiopulmonary disease in the thorax. 2. Endoluminal stent graft along the descending thoracic and cephalad abdominal aorta which spans a s accular aneurysm of the proximal most abdominal aorta with interval increase in AP diameter of the ao rta and aneurysm at this level which is increased from 5.1 to 5.5 cm. Associated bypass graft arising from the aorta which appears to supply the celiac axis and superior mesenteric arteries. Correlate w ith prior vascular surgical history. 3. Nonobstructing left nephrolithiasis. Reviewed, dictated and finalized at location A. IMPRESSION: 1. No pulmonary embolism or other acute cardiopulmonary disease in the thorax. 2. 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 Associated bypass graft arising from the aor ta which appears to supply the celiac axis and superior mesenteric arteries. Co rrelate with prior vascular surgical history. 3. Nonobstructing left nephrolithiasis.
--- OUTSIDE RECORDS SUMMARY | 2025-01-10 06:38 | XMS_ITS | Encounter Summary ---
Author Organization [facility] Address [address] [facility] [place] [address] Care Team Providers Care Supervisor Coil Winding Name Role Phone Gustavo Hsieh DO Primary Care Provider [phone] Encounter Details Date Type Department Care Team (Late st Contact Info) Description 09/28/2020 Telephone [facility] [address] [place] [address] Himanshu Arrington MD [facility] [place], [place] [id number] Social History Tobacco Use Types Packs/Day Years Used Date Smoking Tobacco: Every Day Smokeless Tobacco: Never Comments Unknown Sex and Gender Information Value Date Recorded Sex Assigned at Not on file Legal Sex Female 5:39 PM SPARK PLUG TESTER Gender Identity Not on file Sexual Orientation Not on file documented as of this encounter Miscellaneous Notes * Telephone Encounter - Fatmata Jung - 09/28/2020 10:48 AM CST The patient would like to speak to a nurse regarding on going care, can someone reach out to her K PLUG TESTER documented in this encounter Plan of Treatment Not on file documented as of this encounter Visit Diagnoses Not on filedocumented in this encounter Care Teams Supervisor Coil Winding Relationship Specialty Start Date End Date Gustavo Hsieh DO [address] [facility] [address] [place] [address] PCP - General 11/23/09 documented as of this encounter
--- OUTSIDE RECORDS SUMMARY | 2025-01-10 06:38 | XMS_ITS | Referral Summary ---
Author Organization [facility] Address [address] [place] [address] Care Team Providers Care Toter Name Role Phone Gustavo Hsieh MD Primary Care Provider [phone] Alberto West MD Unavailable [phone] Diogo Corona MD Unavailable [phone] Allergies No known active allergies Medications cyanocobalamin [...] Recorded In the past 12 months has e [employer], oil, or water [employer] threatened to shut off services in your [...] often do you attend chur ch or scientology services? Never 08/30/2023 Do you belong to any clubs o r organizations such as sikhism groups, unions, fraternal or athletic groups, or [...] place to sleep or slept in a long term (including now)? No 08/30/2023 Personal Safety Answer Date Recorded Have you ever been in or are you currently in a harmful physical or emotional relationship or is someone making you feel afraid or unsafe? Denies 08/29/2023 Comments No Sex and Gender Information Value Date Recorded Sex Assigned at Not on file Legal Sex Female 8:28 PM NANOTECHNOLOGY ENGINEERING TECHNOLOGIST Gender Identity Not on file Sexual Orientation Not on file Last Filed Vital Signs Vital Sign Reading Time Taken Comments Blood Pressure 186/76 09/29/2024 11:03 AM NANOTECHNOLOGY ENGINEERING TECHNOLOGIST Pulse 82 09/29/2024 11:03 AM NANOTECHNOLOGY ENGINEERING TECHNOLOGIST Temperature 36.1 C (97 F) 10/08/2023 2:20 PM NANOTECHNOLOGY ENGINEERING TECHNOLOGIST Respiratory Rate 16 09/29/2024 11:03 AM NANOTECHNOLOGY ENGINEERING TECHNOLOGIST Oxygen Saturation 98% 09/29/2024 11:03 AM NANOTECHNOLOGY ENGINEERING TECHNOLOGIST Inhaled Oxygen Concentration - - Weight 59.9 kg (132 lb) 09/29/2024 11:03 AM NANOTECHNOLOGY ENGINEERING TECHNOLOGIST Height 165.1 cm (5' 5) 09/29/2024 11:03 AM NANOTECHNOLOGY ENGINEERING TECHNOLOGIST Body Mass Index 21.97 09/29/2024 11:03 AM NANOTECHNOLOGY ENGINEERING TECHNOLOGIST Plan of Treatment Not on file Medical Devices Implanted Type Area Manager Case Device Identifier Shelf Expiration Date Model / Serial / Lot Getinge [employer] Graft Quadfurcated Thoracic Collagen Coated Double Velour Hemashield [place] [id number] Woven Polyester [id number] - [id number] - [id number] Implanted:Qty: 1 on 07/27/2023 by Diogo Corona MD at [facility] [employer] 04/05/2027 [id number] / [id number] / Bard Peripheral Vascular Bard .25x.25in [place] Thk1.65mm Square Pledget Cardiovascular Ptfe 283832 - [id number] Implanted:Qty: 1 on 07/27/2023 by Diogo Corona MD at [facility] Bard Peripheral Vascular [id number] / / Cryolife Inc Patch Cardiovascular 0.8x8cm Nonpyrogenic Pfp0.8x8 - [id number] Implanted:Qty: 1 on 07/27/2023 by Diogo Corona MD at [facility] [employer] Inc 02/18/2025 PFP0.8X8 / / [id number] [employer] [employer] [place] Tag 31mm 15cm Active Control Conformable Thoracic Graft [id number] - [id number] - [id number] Implanted:Qty: 1 on 07/27/2023 by Diogo Corona MD at [facility] Wl [employer] [employer] 06/05/2024 [id number] / [id number] / Wl [employer] [place] Tag 31mm 20cm Active Control Conformable Thoracic Graft [id number] - [id number] - [id number] Implanted:Qty: 1 on 07/27/2023 by Diogo Corona MD at [facility] Wl [employer] 12/01/2025 [id number] / [id number] / Cryolife Inc Cryovein 6mm 80cm Allograft Saphenous Vein Graft Soft Tissue V010 80+ - [id number] - [id number] Implanted:Qty: 1 on 07/27/2023 by Diogo Corona MD at [facility] [employer] 03/15/2032 V010 80+ / [id number] / Maciel Vascular Device Clsr Perclose Prostyle Sut-Mediatd Closure-Repair Sys 86478-51 - [id number] Implanted:Qty: 1 on 08/29/2023 by Diogo Corona MD at [facility] [employer] 05/05/2025 [id number] -03 / / [id number] Maciel Vascular Device Clsr Perclose Prostyle Sut-Mediatd Closure-Repair Sys 55446-56 - [id number] Implanted:Qty: 1 on 08/29/2023 by Diogo Corona MD at [facility] Left: Groin [employer] 06/05/2025 [id number] / / [id number] Maciel Vascular Device Clsr Perclose Prostyle Sut-Mediatd Closure-Repair Sys 22369-62 - [id number] Implanted:Qty: 1 on 08/29/2023 by Diogo Corona MD at [facility] Left: Groin [employer] 06/05/2025 42341-43 / / [id number] Maciel Vascular Device Clsr Perclose Prostyle Sut-Mediatd Closure-Repair Sys 56653-19 - [id number] Implanted:Qty: 1 on 08/29/2023 by Diogo Corona MD at [facility] [employer] 06/05/2025 75681 -03 / / [id number] Maciel Vascular Device Clsr Perclose Prostyle Sut-Mediatd Closure-Repair Sys 37584-14 - [id number] Implanted:Qty: 1 on 08/29/2023 at [facility] Right: Groin [employer] 05/05/2025 32364-32 / / [id number] Description:Failed to deploy Wl [employer] [employer] [place] Viabahn 8mm 11mm 7fr 39mm 135cm Balloon Expandable Guidewire [id number] - [id number] - [id number] Implanted:Qty: 1 on 08/29/2023 by Diogo Corona MD at [facility] [employer] 05/19/2026 [id number] / [id number] / Insurance [id number] [place] [address] AETNA MEDICARE GOLD AETNA MEDICARE GOLD [facility] MEDICARE GOLD Advance Directives For more information, please contact: [phone] * Full Code (Latest Code Status on File) Date Activated Date Inactivated Comments 08/27/2023 8:24 PM 09/07/2023 7:17 PM * Full Code Date Activated Date Inactivated Comments 07/27/2023 2:56 PM 08/05/2023 5:34 PM * Full Code Date Activated Date Inactivated Comments 06/19/2023 10:41 AM 06/20/2023 12:24 PM Care Teams Toter Relationship Specialty Start Date End Date Gustavo Hsieh MD [address] [place] [address] PCP - General Internal Medicine 10/25/18 Alberto West MD [address] [facility] [address] [facility] [address] [place] [address] Surgeon Vascular Surgery 02/09/22 Diogo Corona MD [address] [facility] [address] [place] [address] Consulting Physician Cardiothoracic Surgery 05/25/23
--- OUTSIDE RECORDS SUMMARY | 2025-01-10 06:38 | XMS_ITS | Clinical Summary ---
Author Organization [facility] Address [address] [place] [address] Care Team Providers Care Obiee Lead Developer Name Role Phone Gustavo Hsieh MD Primary Care Provider [phone] Alberto West MD Unavailable [phone] Diogo Corona MD Unavailable [phone] Allergies No known active allergies Medications cyanocobalamin [...] materials from doctor or pharmacy Never 10/08/2023 [facility] Utilities Answer Date Recorded In the past 12 months has e [employer], gas, oil, or water [employer] threatened to shut off services in your [...] often do you attend chur ch or mosque services? Never 08/30/2023 Do you belong to any clubs o r organizations such as restorationism groups, unions, fraternal or athletic groups, or [...] on file Legal Sex Female 8:28 PM ORDER CLERK Gender Identity Not on file Sexual Orientation Not on file Obstetrics History Last Filed Vital Signs Vital Sign Reading Time Taken Comments Blood Pressure 186/76 09/29/2024 11:03 AM ORDER CLERK Pulse 82 09/29/2024 11:03 AM ORDER CLERK Temperature 36.1 C (97 F) 10/08/2023 2:20 PM ORDER CLERK Respiratory Rate 16 09/29/2024 11:03 AM ORDER CLERK Oxygen Saturation 98% 09/29/2024 11:03 AM ORDER CLERK Inhaled Oxygen Concentration - - Weight 59.9 kg (132 lb) 09/29/2024 11:03 AM ORDER CLERK Height 165.1 cm (5' 5) 09/29/2024 11:03 AM ORDER CLERK Body Mass Index 21.97 09/29/2024 11:03 AM ORDER CLERK Plan of Treatment Health Maintenance Due Date Last Done Comments Depression Screening 1940 Osteoporosis Screening-Bone Density Scan 1940 DTaP/Tdap/Td Vaccine (1 - Tdap) 1951 Hepatitis B Screening 1958 Zoster Vaccine (1 of 2) 1990 Well Visit 65+ 2005 Fall Risk Assessment 09/07/2024 09/07/2023 Influenza Vaccine (Season Ended) 2025 06/20/2023, 04/02/2019, 04/02/2019, Additional history exists Pneumococcal vaccine 65+ Completed 08/01/2023, 04/06 Medical Devices Implanted Type Area [place] Device Identifier Shelf Expiration Date Model / Serial / Lot Getinge [place] Inc Graft Quadfurcated Thoracic Collagen Coated Double Velour Hemashield [place] [id number] Woven Polyester [id number] - [id number] - [id number] Implanted:Qty: 1 on 07/27/2023 by Diogo Corona MD at [facility] [employer] 04/05/2027 [id number] / [id number] / Bard Peripheral Vascular Bard .25x.25in [place] Thk1.65mm Square Pledget Cardiovascular Ptfe 476484 - [id number] Implanted:Qty: 1 on 07/27/2023 by Diogo Corona MD at [facility] Bard Peripheral Vascular [id number] / / Cryolife Inc Patch Cardiovascular 0.8x8cm Nonpyrogenic Pfp0.8x8 - [id number] Implanted:Qty: 1 on 07/27/2023 by Diogo Corona MD at [facility] [employer] Inc 02/18/2025 PFP0.8X8 / / [id number] Petros & Associates Inc Petros Tag 31mm 15cm Active Control Conformable Thoracic Graft [id number] - [id number] - [id number] Implanted:Qty: 1 on 07/27/2023 by Diogo Corona MD at [facility] [employer] 06/05/2024 [id number] / [id number] / Petros [employer] Associates Inc Petros Tag 31mm 20cm Active Control Conformable Thoracic Graft [id number] - [id number] - [id number] Implanted:Qty: 1 on 07/27/2023 by Diogo Corona MD at [facility] [employer] 12/01/2025 [id number] / [id number] / Cryolife Inc Cryovein 6mm 80cm Allograft Saphenous Vein Graft Soft Tissue V010 80+ - [id number] - [id number] Implanted:Qty: 1 on 07/27/2023 by Diogo Corona MD at [facility] [employer] Inc 03/15/2032 V010 80+ / [id number] / Maciel Vascular Device Clsr Perclose Prostyle Sut-Mediatd Closure-Repair Sys 38652-72 - [id number] Implanted:Qty: 1 on 08/29/2023 by Diogo Corona MD at [facility] [employer] 05/05/2025 73130 -03 / / [id number] Maciel Vascular Device Clsr Perclose Prostyle Sut-Mediatd Closure-Repair Sys 78323-41 - [id number] Implanted:Qty: 1 on 08/29/2023 by Diogo Corona MD at [facility] Left: Groin [employer]iel V[employer] 06/05/2025 09609-64 / / [id number] Maciel Vascular Device Clsr Perclose Prostyle Sut-Mediatd Closure-Repair Sys 20387-58 - [id number] Implanted:Qty: 1 on 08/29/2023 by Diogo Corona MD at [facility] Left: Groin [employer] 06/05/2025 15789-16 / / [id number] Maciel Vascular Device Clsr Perclose Prostyle Sut-Mediatd Closure-Repair Sys 59453-35 - [id number] Implanted:Qty: 1 on 08/29/2023 by Diogo Corona MD at [facility] [employer] 06/05/2025 82866 -03 / / [id number] Maciel Vascular Device Clsr Perclose Prostyle Sut-Mediatd Closure-Repair Sys 48938-02 - [id number] Implanted:Qty: 1 on 08/29/2023 at [facility] Right: Groin Maciel Vascular 05/05/2025 [id number] / / [id number] Description:Failed to deploy Wl [employer] Inc Petros Viabahn 8mm 11mm 7fr 39mm 135cm Balloon Expandable Guidewire [id number] - [id number] - [id number] Implanted:Qty: 1 on 08/29/2023 by Diogo Corona MD at [facility] Wl [employer] Inc 05/19/2026 [id number] / [id number] / Insurance [facility] AETNA MEDICARE GOLD AETNA MEDICARE GOLD AETNA MEDICARE GOLD Advance Directives For more information, please contact: [phone] * Full Code (Latest Code Status on File) Date Activated Date Inactivated Comments 08/27/2023 8:24 PM 09/07/2023 7:17 PM * Full Code Date Activated Date Inactivated Comments 07/27/2023 2:56 PM 08/05/2023 5:34 PM * Full Code Date Activated Date Inactivated Comments 06/19/2023 10:41 AM 06/20/2023 12:24 PM Care Teams Obiee Lead Developer Relationship Specialty Start Date End Date Gustavo Hsieh MD [address] [place] [address] PCP - General Internal Medicine 10/25/18 Alberto West MD [address] [facility] [address] [place] [address] [facility] [address] [place] [address] Surgeon Vascular Surgery 02/09/22 Diogo Corona MD [address] [place] [address] Consulting Physician Cardiothoracic Surgery 05/25/23
--- OUTSIDE RECORDS SUMMARY | 2025-01-10 06:38 | XMS_ITS | Clinical Summary ---
Author Organization [facility] Address [address] [place] [address] Care Team Providers Care Detail Assembler Name Role Phone Gustavo Hsieh DO Primary Care Provider [phone] Source Comments [facility],non-owned Affiliates and Associated Physician Practices is amultiple site organization consisting of ambulatory clinics and hospital sitesin [place], [place]. This disclosure is being madepursuant to the Care Everywhere program and may not contain all information available regarding this patient. Last updated 18.[facility] Allergies No known active allergies Medications * Be aware that medications may not be up to date on this document. Alwaysverify current medications with the patient. cyanocobalamin 100 MCG tablet Rx: Vitamin B12 100 MCG Tablet Active simvastatin (ZOCOR) 20 MG tablet 07/18/2020 Active Active Problems Problem Noted Date Diagnosed Date Closed fracture of right proximal humerus 2019 Immunizations Immunization Administration Dates Next Due INFLUENZA VACCINE, TRIV. [...] on file Legal Sex Female 5:39 PM PROGRESSIVE DIE MAKER Gender Identity Not on file Sexual Orientation Not on file Last Filed Vital Signs Vital Sign Reading Time Taken Comments Blood Pressure - - Pulse - - Temperature - - Respiratory Rate - - Oxygen Saturation - - Inhaled Oxygen Concentration - - Weight 66.7 kg (147 lb) 10/05/2020 8:57 AM PROGRESSIVE DIE MAKER Height 167.6 cm (5' 6) 10/05/2020 8:57 AM PROGRESSIVE DIE MAKER Body Mass Index 23.73 10/05/2020 8:57 AM PROGRESSIVE DIE MAKER Plan of Treatment Health Maintenance Due Date Last Done Comments BONE DENSITY TESTING 1940 DTAP/TDAP/TD VACCINES (1 - Tdap) 1959 ZOSTER VACCINE (1 of 2) 1990 Respiratory Syncytial Virus (RSV) Vaccine Pt: or over 60 yrs (1 - 1-dose 75+ series) 2015 PNEUMOCOCCAL VACCINE 50+ (2 of 2 - PPSV23) 06/12/2017 04/17/2017 COVID-19 VACCINE ( - season) 2024 DEPRESSION SCREENING 08/06/2024 MEDICARE [...] age to complete this topic Insurance AETNA AETNA MEDICARE ADV SELF PAY NO INSURANCE Member Subscriber Plan / Payer (Ef fective for All Dates) Name:Gia Leggett I Member ID:Not on file Relation to Subscriber:Not on file Name:LEGGETT,GIA [place] Subscriber ID:Not on file (Home) Address: [address] [place], [place] [address] Payer ID:Not on file Group ID:Not on file Type:Self Pay Address: [place], [place] Care Teams Detail Assembler Relationship Specialty Start Date End Date Gustavo Hsieh DO [address] [facility] [address] [facility] [address] [place] [address] [facility] - General 11/23/09
[2025-01-10 06:39] VITALS: BP 141/54; PULSE 93; RESP 18; TEMP 36.4; O2SAT 98
[2025-01-10 06:49] VITALS: BP 148/70; PULSE 81; PULSE 82; RESP 17; O2SAT 98; O2SAT 99
--- NOTE | 2025-01-10 06:51 | ECG_ITS ---
Test Date: 2025-01-10 07:00:11 Measurements Intervals Gilman Rate: 71 P: 69 SD: 166 QRS: 89 QRSD: 129 T: 36 QT: 401 QTc: 437 Interpretive Statements SINUS RHYTHM RIGHT BUNDLE BRANCH BLOCK MINIMAL Q WAVES- INF/LAT LEADS BASELINE ARTIFACT- I, II, III, AVR, AVL, AVF ABNORMAL ECG Compared to ECG 11/13/2024 10:17:08 Right bundle-branch block now present Electronically Signed On 01-10-2025 08:16:38 CDT by Jose Dinh D.O.
[2025-01-10 07:12] LABS: Basophils Absolute Auto 0.2 K/mm3 (0.0-0.1); Basophils Percent Auto 1.7 % (0.2-1.2); Eosinophils Absolute Auto 0.6 K/mm3 (0-0.3); Eosinophils Percent Auto 7.1 % (0-4.4); Hematocrit 31.1 % (37.0-47.0); Hemoglobin 9.8 g/dL (12.0-15.0); Immature Granulocyte Absolute 0.02 K/mm3 (0.00-0.031); Immature Granulocyte Percent A 0.2 % (0-0.5); Lymphocytes Percent Auto 32.2 % (18.3-44.2); Mean Corpuscular HGB Conc 31.5 g/dl (32-36); Mean Corpuscular Hemoglobin 29.7 pg (26-34); Mean Corpuscular Volume 94.2 fl (80-100); Mean Platelet Volume 10.1 fl (7.4-10.4); Monocytes Absolute Auto 1.1 K/mm3 (0.1-0.6); Monocytes Percent Auto 11.7 % (2.6-8.5); Neutrophils Absolute Auto 4.3 K/mm3 (1.3-6.7); Neutrophils Percent Auto 47.1 % (45.5-73.1); Platelet Count Result 420 k/mm3 (150-375); Red Cell Distribution Width 15.3 % (11.5-14.5)
--- OUTSIDE RECORDS SUMMARY | 2025-01-10 07:20 | XMS_ITS | Clinical Summary ---
Author Organization [facility] Address [address] [place] [address] Care Team Providers Care Crm Marketing Executive Name Role Phone Gustavo Hsieh DO Primary Care Provider [phone] Source Comments [facility],non-owned Affiliates and Associated Physician Practices is amultiple site organization consisting of ambulatory clinics and hospital sitesin [place] and [place]. This disclosure is being madepursuant to the Care Everywhere program and may not contain all information available regarding this patient. Last updated 18.[facility] Allergies No known active allergies Medications * [...] on file Legal Sex Female 5:39 PM MODEL AND DYE PERSON Gender Identity Not on file Sexual Orientation Not on file Last Filed Vital Signs Vital Sign Reading Time Taken Comments Blood Pressure - - Pulse - - Temperature - - Respiratory Rate - - Oxygen Saturation - - Inhaled Oxygen Concentration - - Weight 66.7 kg (147 lb) 10/05/2020 8:57 AM MODEL AND DYE PERSON Height 167.6 cm (5' 6) 10/05/2020 8:57 AM MODEL AND DYE PERSON Body Mass Index 23.73 10/05/2020 8:57 AM MODEL AND DYE PERSON Plan of Treatment Health Maintenance Due [...] Paradise Subscriber ID:Not on file (Home) Address: [address] [place], [place] [address] Payer ID:Not on file Group ID:Not on file Type:Self Pay Address: [place], [place] Care Teams Crm Marketing Executive Relationship Specialty Start Date End Date Gustavo Hsieh DO [address] [facility] [address] [address] [facility] [address] [place] [address] [facility] - General 11/23/09
--- OUTSIDE RECORDS SUMMARY | 2025-01-10 07:20 | XMS_ITS | Encounter Summary ---
Author Organization [facility] Address [address] [place] [address] Care Team Providers Care Veterinary Milk Specialist Name Role Phone Gustavo Hsieh DO Primary Care Provider [phone] Encounter Details Date Type Department Care Team (Late st Contact Info) Description 09/28/2020 Telephone [facility] [address] [place] [address] Himanshu Arrington MD [facility] [facility] [place], [place] [id number] Social History Tobacco Use Types Packs/Day Years Used Date Smoking Tobacco: Every Day Smokeless Tobacco: Never Comments Unknown Sex and Gender Information Value Date Recorded Sex Assigned at Not on file Legal Sex Female 5:39 PM FILLER SHREDDER HELPER Gender Identity Not on file Sexual Orientation Not on file documented as of this encounter Miscellaneous Notes * Telephone Encounter - Fatmata Jung - 09/28/2020 10:48 AM CST The patient would like to speak to a nurse regarding on going care, can someone reach out to her ER SHREDDER HELPER documented in this encounter Plan of Treatment Not on file documented as of this encounter Visit Diagnoses Not on filedocumented in this encounter Care Teams Veterinary Milk Specialist Relationship Specialty Start Date End Date Gustavo Hsieh DO [address] [facility] [address] [place] [address] PCP - General 11/23/09 documented as of this encounter
--- OUTSIDE RECORDS SUMMARY | 2025-01-10 07:20 | XMS_ITS | Clinical Summary ---
Author Organization [facility] Address [address] [place] [address] Care Team Providers Care Convention Planner Name Role Phone Gustavo Hsieh MD Primary Care Provider [phone] Alberto West MD Unavailable [phone] Diogo Corona MD Unavailable [phone] Allergies No known active allergies Medications cyanocobalamin [...] materials from doctor or pharmacy Never 10/08/2023 [facility] Utilities Answer Date Recorded In the past 12 months has e [employer], gas, oil, or water [employer] threatened to shut off services in your [...] often do you attend chur ch or evangelical services? Never 08/30/2023 Do you belong to any clubs o r organizations such as oriental orthodox groups, unions, fraternal or athletic groups, or [...] place to sleep or slept in a detention (including now)? No 08/30/2023 Personal Safety Answer Date Recorded Have you ever been in or are you currently in a harmful physical or emotional relationship or is someone making you feel afraid or unsafe? Denies 08/29/2023 Comments No Sex and Gender Information Value Date Recorded Sex Assigned at Not on file Legal Sex Female 8:28 PM HAM TRIMMER Gender Identity Not on file Sexual Orientation Not on file Obstetrics History Last Filed Vital Signs Vital Sign Reading Time Taken Comments Blood Pressure 186/76 09/29/2024 11:03 AM HAM TRIMMER Pulse 82 09/29/2024 11:03 AM HAM TRIMMER Temperature 36.1 C (97 F) 10/08/2023 2:20 PM HAM TRIMMER Respiratory Rate 16 09/29/2024 11:03 AM HAM TRIMMER Oxygen Saturation 98% 09/29/2024 11:03 AM HAM TRIMMER Inhaled Oxygen Concentration - - Weight 59.9 kg (132 lb) 09/29/2024 11:03 AM HAM TRIMMER Height 165.1 cm (5' 5) 09/29/2024 11:03 AM HAM TRIMMER Body Mass Index 21.97 09/29/2024 11:03 AM HAM TRIMMER Plan of Treatment Health Maintenance Due Date [...] 08/01/2023, 04/06 Medical Devices Implanted Type Area Biomedical Repair Technician Device Identifier Shelf Expiration Date Model / Serial / Lot Getinge [place] [employer] Graft Quadfurcated Thoracic Collagen Coated Double Velour Hemashield Greenleaf [id number] Woven Polyester [id number] - [id number] - [id number] Implanted:Qty: 1 on 07/27/2023 by Diogo Corona MD at [facility] [employer] INC 04/05/2027 [id number] / [id number] / Bard Peripheral Vascular Bard .25x.25in [place] Thk1.65mm Square Pledget Cardiovascular Ptfe 686471 - [id number] Implanted:Qty: 1 on 07/27/2023 by Diogo Corona MD at [facility] Bard Peripheral Vascular [id number] / / Cryolife Inc Patch Cardiovascular 0.8x8cm Nonpyrogenic Pfp0.8x8 - [id number] Implanted:Qty: 1 on 07/27/2023 by Diogo Corona MD at [facility] [employer] Inc 02/18/2025 PFP0.8X8 / / [id number] Oxford & Associates Inc Oxford Tag 31mm 15cm Active Control Conformable Thoracic Graft [id number] - [id number] - [id number] Implanted:Qty: 1 on 07/27/2023 by Diogo Corona MD at [facility] [employer] Inc 06/05/2024 [id number] / [id number] / Oxford [employer] Associates Inc Oxford Tag 31mm 20cm Active Control Conformable Thoracic Graft [id number] - [id number] - [id number] Implanted:Qty: 1 on 07/27/2023 by Diogo Corona MD at [facility] [employer] Inc 12/01/2025 [id number] / [id number] / Cryolife Inc Cryovein 6mm 80cm Allograft Saphenous Vein Graft Soft Tissue V010 80+ - [id number] - [id number] Implanted:Qty: 1 on 07/27/2023 by Diogo Corona MD at [facility] [employer] Inc 03/15/2032 V010 80+ / [id number] / Maciel Vascular Device Clsr Perclose Prostyle Sut-Mediatd Closure-Repair Sys 17470-68 - [id number] Implanted:Qty: 1 on 08/29/2023 by Diogo Corona MD at [facility] [employer] V[employer] 05/05/2025 81268 -03 / / [id number] Maciel Vascular Device Clsr Perclose Prostyle Sut-Mediatd Closure-Repair Sys 67078-76 - [id number] Implanted:Qty: 1 on 08/29/2023 by Diogo Corona MD at [facility] Left: Groin Maciel Vascular 06/05/2025 [id number] / / [id number] Maciel Vascular Device Clsr Perclose Prostyle Sut-Mediatd Closure-Repair Sys 66589-25 - [id number] Implanted:Qty: 1 on 08/29/2023 by Diogo Corona MD at [facility] Left: Groin Maciel Vascular 06/05/2025 04899-12 / / [id number] Maciel Vascular Device Clsr Perclose Prostyle Sut-Mediatd Closure-Repair Sys 44216-32 - [id number] Implanted:Qty: 1 on 08/29/2023 by Diogo Corona MD at [facility] Mac[employer] Vascular 06/05/2025 [id number] -03 / / [id number] Maciel Vascular Device Clsr Perclose Prostyle Sut-Mediatd Closure-Repair Sys 80897-15 - [id number] Implanted:Qty: 1 on 08/29/2023 at [facility] Right: Groin Maciel Vascular 05/05/2025 [id number] / / [id number] Description:Failed to deploy Wl Oxford & Associates Inc Oxford Viabahn 8mm 11mm 7fr 39mm 135cm Balloon Expandable Guidewire [id number] - [id number] - [id number] Implanted:Qty: 1 on 08/29/2023 by Diogo Corona MD at [facility] Wl Oxford & Associates Inc 05/19/2026 [id number] / [id number] / Insurance [facility] AETNA MEDICARE GOLD AETNA MEDICARE GOLD AETNA MEDICARE GOLD Advance Directives For more information, please contact: [phone] * Full Code (Latest Code Status on File) Date Activated Date Inactivated Comments 08/27/2023 8:24 PM 09/07/2023 7:17 PM * Full Code Date Activated Date Inactivated Comments 07/27/2023 2:56 PM 08/05/2023 5:34 PM * Full Code Date Activated Date Inactivated Comments 06/19/2023 10:41 AM 06/20/2023 12:24 PM Care Teams Convention Planner Relationship Specialty Start Date End Date Gustavo Hsieh MD [address] [place] [address] PCP - General Internal Medicine 10/25/18 Alberto West MD [address] [place] [address] [facility] [address] [place] [address] Surgeon Vascular Surgery 02/09/22 Diogo Corona MD [address] [place] [address] Consulting Physician Cardiothoracic Surgery 05/25/23
--- OUTSIDE RECORDS SUMMARY | 2025-01-10 07:20 | XMS_ITS | Referral Summary ---
Author Organization [facility] Address [address] [place] [address] Care Team Providers Care Pet Trainer Name Role Phone Gustavo Hsieh MD Primary Care Provider [phone] Alberto West MD Unavailable [phone] Diogo Corona MD Unavailable [phone] Allergies No known active allergies Medications cyanocobalamin [...] materials from doctor or pharmacy Never 10/08/2023 [facility] Utilities Answer Date Recorded In the past 12 months has e [email or web address] by [employer], oil, or water [employer] threatened to shut off services in your [...] often do you attend chur ch or pentecostalism services? Never 08/30/2023 Do you belong to any clubs o r organizations such as congregational groups, unions, fraternal or athletic groups, or [...] place to sleep or slept in a nursing home (including now)? No 08/30/2023 Personal Safety Answer Date Recorded Have you ever been in or are you currently in a harmful physical or emotional relationship or is someone making you feel afraid or unsafe? Denies 08/29/2023 Comments No Sex and Gender Information Value Date Recorded Sex Assigned at Not on file Legal Sex Female 8:28 PM TELECOMMUNICATIONS SALES REPRESENTATIVE Gender Identity Not on file Sexual Orientation Not on file Last Filed Vital Signs Vital Sign Reading Time Taken Comments Blood Pressure 186/76 09/29/2024 11:03 AM TELECOMMUNICATIONS SALES REPRESENTATIVE Pulse 82 09/29/2024 11:03 AM TELECOMMUNICATIONS SALES REPRESENTATIVE Temperature 36.1 C (97 F) 10/08/2023 2:20 PM TELECOMMUNICATIONS SALES REPRESENTATIVE Respiratory Rate 16 09/29/2024 11:03 AM TELECOMMUNICATIONS SALES REPRESENTATIVE Oxygen Saturation 98% 09/29/2024 11:03 AM TELECOMMUNICATIONS SALES REPRESENTATIVE Inhaled Oxygen Concentration - - Weight 59.9 kg (132 lb) 09/29/2024 11:03 AM TELECOMMUNICATIONS SALES REPRESENTATIVE Height 165.1 cm (5' 5) 09/29/2024 11:03 AM TELECOMMUNICATIONS SALES REPRESENTATIVE Body Mass Index 21.97 09/29/2024 11:03 AM TELECOMMUNICATIONS SALES REPRESENTATIVE Plan of Treatment Not on file Medical Devices Implanted Type Area Humanities Coordinator Device Identifier Shelf Expiration Date Model / Serial / Lot Getinge [place] [employer] Graft Quadfurcated Thoracic Collagen Coated Double Velour Hemashield [place] [id number] Woven Polyester [id number] - [id number] - [id number] Implanted:Qty: 1 on 07/27/2023 by Diogo Corona MD at [facility] [employer] 04/05/2027 [id number] / [id number] / Bard Peripheral Vascular Bard .25x.25in [place] Thk1.65mm Square Pledget Cardiovascular Ptfe 822624 - [id number] Implanted:Qty: 1 on 07/27/2023 by Diogo Corona MD at [facility] Bard Peripheral Vascular [id number] / / Cryolife Inc Patch Cardiovascular 0.8x8cm Nonpyrogenic Pfp0.8x8 - [id number] Implanted:Qty: 1 on 07/27/2023 by Diogo Corona MD at [facility] [employer] Inc 02/18/2025 PFP0.8X8 / / [id number] Seward & Associates Inc Seward Tag 31mm 15cm Active Control Conformable Thoracic Graft [id number] - [id number] - [id number] Implanted:Qty: 1 on 07/27/2023 by Diogo Corona MD at [facility] Wl [employer] Inc 06/05/2024 [id number] / [id number] / Wl Seward & Associates Inc Seward Tag 31mm 20cm Active Control Conformable Thoracic Graft [id number] - [id number] - [id number] Implanted:Qty: 1 on 07/27/2023 by Diogo Corona MD at [facility] Wl [employer] Inc 12/01/2025 [id number] 0 / [id number] / Cryolife Inc Cryovein 6mm 80cm Allograft Saphenous Vein Graft Soft Tissue V010 80+ - [id number] - [id number] Implanted:Qty: 1 on 07/27/2023 by Diogo Corona MD at [facility] [employer] Inc 03/15/2032 V010 80+ / [id number] / Maciel Vascular Device Clsr Perclose Prostyle Sut-Mediatd Closure-Repair Sys 94832-28 - [id number] Implanted:Qty: 1 on 08/29/2023 by Diogo Corona MD at [facility] [employer] Vascular 05/05/2025 61559 -03 / / [id number] Maciel Vascular Device Clsr Perclose Prostyle Sut-Mediatd Closure-Repair Sys 86410-88 - [id number] Implanted:Qty: 1 on 08/29/2023 by Diogo Corona MD at [facility] Left: Groin Maciel Vascular 06/05/2025 25656-05 / / [id number] Maciel Vascular Device Clsr Perclose Prostyle Sut-Mediatd Closure-Repair Sys 43583-94 - [id number] Implanted:Qty: 1 on 08/29/2023 by Diogo Corona MD at [facility] Left: Groin Maciel Vascular 06/05/2025 27068-53 / / [id number] Maciel Vascular Device Clsr Perclose Prostyle Sut-Mediatd Closure-Repair Sys 11984-31 - [id number] Implanted:Qty: 1 on 08/29/2023 by Diogo Corona MD at [facility] Maciel Vascular 06/05/2025 66867 -03 / / [id number] Maciel Vascular Device Clsr Perclose Prostyle Sut-Mediatd Closure-Repair Sys 47344-96 - [id number] Implanted:Qty: 1 on 08/29/2023 at [facility] Right: Groin Maciel Vascular 05/05/2025 [id number] / / [id number] Description:Failed to deploy Wl [employer] Inc Seward Viabahn 8mm 11mm 7fr 39mm 135cm Balloon Expandable Guidewire [id number] - [id number] - [id number] Implanted:Qty: 1 on 08/29/2023 by Diogo Corona MD at [facility] [employer]ard & Associates Inc 05/19/2026 [id number] / [id number] / Insurance [id number] [place] [address] AETNA MEDICARE GOLD AETNA MEDICARE GOLD [facility] MEDICARE GOLD Advance Directives For more information, please contact: [phone] * Full Code (Latest Code Status on File) Date Activated Date Inactivated Comments 08/27/2023 8:24 PM 09/07/2023 7:17 PM * Full Code Date Activated Date Inactivated Comments 07/27/2023 2:56 PM 08/05/2023 5:34 PM * Full Code Date Activated Date Inactivated Comments 06/19/2023 10:41 AM 06/20/2023 12:24 PM Care Teams Pet Trainer Relationship Specialty Start Date End Date Gustavo Hsieh MD [address] [place] [address] PCP - General Internal Medicine 10/25/18 Alberto West MD [address] [facility] [address] [facility] [address] [place] [address] Surgeon Vascular Surgery 02/09/22 Diogo Corona MD [address] [facility] [address] [place] [address] Consulting Physician Cardiothoracic Surgery 05/25/23
[2025-01-10 07:26] LABS: Alanine Aminotransferase 10 U/L (6-35); Albumin Level 3.8 g/dL (3.5-5.1); Alkaline Phosphatase 65 U/L (38-126); Anion Gap 8 mmol/L (4-12); Aspartate Amino Transferase 25 U/L (14-36); Bilirubin,Total 0.6 mg/dL (0.2-1.3); Blood Urea Nitrogen 15 mg/dL (7-17); Calcium 10.2 mg/dL (8.4-10.2); Carbon Dioxide 23 mmol/L (22-30); Chloride 111 mmol/L (98-107); Estimated CRCL calculation 29 ml/min; Estimated Glomerular Filt Rate 49; Glucose 97 mg/dL (65-110); Sodium 142 mmol/L (137-145)
--- NOTE | 2025-01-10 07:41 | ED_ITS ---
HPI - SOB/Dyspnea General Chief Complaint: Shortness of Breath/Dyspnea Stated Complaint: nausea, dizzy, not eating, sob, many c/o Time Seen by Provider: 01/10/25 07:05 History of Present Illness HPI Narrative: Patient is an 84-year-old female who presents ER with progressive weakness/shortness of breath/weight loss. Worsening over last month. The in November she fractured her hip and arm. She was at rehab for a couple weeks before returning home. Reports she has the desire to eat but when she puts food in her mouth the just does not taste good then she will occasionally gag with swelling. She has lost 5 lb. No diarrhea. No fevers or chills. No urinary issues. No recent falls. She is beginning to get dizzy when she exerts herself for stands up. This also makes her mildly short of breath. No hemoptysis. Related Data Home Medications ?Medication ?Instructions ?Recorded ?Confirmed ?Last Taken ?Type aspirin 81 mg tablet,delayed 81 mg PO DAILY 11/13/24 12/25/24 Unknown History release cyanocobalamin (vitamin B-12) 100 100 mcg PO DAILY 11/13/24 12/25/24 Unknown History mcg tablet Allergies Allergy/AdvReac Type Severity Reaction Status Date / Time No Known Allergies Allergy Verified 01/10/25 06:43 Review of Systems 2 Review of Systems: All systems reviewed & are unremarkable except as noted in HPI and below Constitutional: Constitutional: Reports no additional constitutional complaints ENT: Reports system reviewed and no additional complaints, except as documented Cardiovascular: Cardiovascular: Reports no additional cardiovascular complaints Respiratory: Respiratory: Reports no additional respiratory complaints Musculoskeletal: Musculoskeletal: Reports no additional musculoskeletal complaints [facility] Past Medical History Medical History Former smoker Hx of carotid artery stenosis Hyperlipidemia Osteoporosis Chronic GERD Neuropathy Dementia COPD (chronic obstructive pulmonary disease) History of thoracoabdominal aortic aneurysm (TAAA) Humerus fracture Surgical History Surgical History History of thoracic aortic aneurysm repair Family History Family History Mother Cerebrovascular accident Father Patient's father is Carcinoma of colon Sibling Family history of malignant neoplasm Social History Social History (Updated 12/25/24 @ 10:59 by Xochitl Ambriz [facility]) Smoking packs per day: 1 Smoking cigarettes per day: 20.0 Years smoked: 65 Smoking pack-years: 65.00 Smoking status: Former smoker Second hand tobacco smoke exposure: No Alcohol intake: former Substance use: never Substance use type: does not use Current Housing: Decline to Answer Concerned About Future Housing: Decline to Answer Difficulty Paying Gas/Electric Bills: Decline to Answer Difficulty Paying for Meds: Decline to Answer Currently Unemployed: Decline to Answer Education: Decline to Answer Difficulty w/ Childcare or Family Care: No Living arrangements: with family Gender identity (if verbalized by the patient): Female Spiritual care concerns: No Exam 2 Narrative: GENERAL: Frail-appearing, well-nourished, and in no acute distress. HEAD: Normocephalic, atraumatic. EYES: PERRL and EOMI. Normal conjunctiva ENT: Mucous membranes moist. CHEST: Clear to auscultation. No respiratory distress. HEART: Regular rate and rhythm. Normal peripheral pulses. ABDOMEN: Soft, nontender, nondistended. EXTREMITIES: Normal range of motion. No edema. SKIN: Warm, dry, no rash. NEURO: Alert and oriented x3. PSYCH: Normal mood and affect. Course Course Emergency Course: Patient resting comfortably. She feels improved after IV fluid. Ambulatory with a steady gait no hypoxia. No evidence of UTI. Recommend follow-up with PCP for further treatment evaluation. Vital Signs Vital signs: Vital Signs Temperature 97.6 F 01/10/25 06:39 Pulse Rate 93 01/10/25 06:39 Respiratory Rate 18 01/10/25 06:39 Blood Pressure 141/54 H 01/10/25 06:39 Pulse Oximetry 98 01/10/25 06:39 Oxygen Delivery Room Air 01/10/25 06:39 Temperature 97.6 F 01/10/25 06:39 Pulse Rate 98 01/10/25 09:02 Respiratory Rate 20 01/10/25 08:58 Blood Pressure 127/65 01/10/25 09:02 Pulse Oximetry 98 01/10/25 08:58 Oxygen Delivery Room Air 01/10/25 06:49 MDM - SOB/Dyspnea Lab Data 01/10/25 07:04 01/10/25 07:04 Labs: Lab Results 01/10/25 01/10/25 Range/Units 07:04 08:56 WBC 9.0 (4.5-10.0) K/mm3 RBC 3.30 L (4.2-5.4) M/mm3 Hgb 9.8 L (12.0-15.0) g/dL Hct 31.1 L (37.0-47.0) % MCV 94.2 (80-100) fl MCH 29.7 (26-34) pg MCHC 31.5 L (32-36) g/dl RDW 15.3 H (11.5-14.5) % Plt Count 420 H (150-375) k/mm3 MPV 10.1 (7.4-10.4) fl Immature Gran % (Auto) 0.2 (0-0.5) % Neut % (Auto) 47.1 (45.5-73.1) % Lymph % (Auto) 32.2 (18.3-44.2) % George % (Auto) 11.7 H (2.6-8.5) % Eos % (Auto) 7.1 H (0-4.4) % Baso % (Auto) 1.7 H (0.2-1.2) % Lymph # (Auto) 2.90 (0.9-3.2) K/mm3 George # (Auto) 1.1 H (0.1-0.6) K/mm3 Eos # (Auto) 0.6 H (0-0.3) K/mm3 Baso # (Auto) 0.2 H (0.0-0.1) K/mm3 Abs Immat Gran (auto) 0.02 (0.00-0.031) K/mm3 Absolute Neuts (auto) 4.3 (1.3-6.7) K/mm3 Absolute Nucleated RBC 0.000 (0.0-0.012) K/mm3 Nucleated RBC % 0.0 (0.0-0.2) % Sodium 142 (137-145) mmol/L Potassium 4.0 (3.4-5.0) mmol/L Chloride 111 H (98-107) mmol/L Carbon Dioxide 23 (22-30) mmol/L Anion Gap 8 (4-12) mmol/L BUN 15 D (7-17) mg/dL Creatinine 1.07 H (0.7-1.0) mg/dL Estim Creat Clear Calc 29 ml/min Estimated GFR 49 L (59 - ) Glucose 97 (65-110) mg/dL Calcium 10.2 (8.4-10.2) mg/dL Total Bilirubin 0.6 (0.2-1.3) mg/dL AST 25 (14-36) U/L ALT 10 (6-35) U/L Alkaline Phosphatase 65 (38-126) U/L Total Protein 7.0 (6.3-8.2) g/dL Albumin 3.8 (3.5-5.1) g/dL Urine Color Yellow (Yellow) Urine Appearance Clear (Clear) Urine pH 5.5 (5.0-9.0) Ur Specific [place] 1.032 (1.001-1.035) Urine Protein Negative (Negative) mg/dL Urine Glucose (UA) Negative (Negative) mg/dL Urine Ketones Negative (Negative) mg/dL Ur Blood (Man) Negative (Negative) Urine Nitrate Negative (Negative) Urine Bilirubin Negative (Negative) Urine Urobilinogen 0.2 (<2.0) mg/dL Leukocyte Esterase Rfl Negative (Negative) MÓNICA/UL Imaging Data Radiologist's impression: ITS Impressions Chest CTA 01/10/25 07:48 IMPRESSION: 1. No pulmonary embolism or other acute cardiopulmonary disease in the thorax. 2. 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 Associated bypass graft arising from the aorta which appears to supply the celiac axis and superior mesenteric arteries. Correlate with prior vascular surgical history. 3. Nonobstructing left nephrolithiasis. ECG Data EKG #1: ECG completion date: 01/10/25 ECG completion time: 07:00 EKG Interpretation: normal rate (71), sinus rhythm and RBBB Discharge Plan Discharge Clinical Impression: Dehydration Patient Disposition: Home Condition: Stable Instructions: Dehydration (ED) Additional Instructions: Return ER if you have fever 100.4? F, you have chest pain and shortness of breath, or have additional concerns. Patient Language: Sammarinese Prescriptions: No Action lisinopril 10 mg tablet 5 mg PO DAILY Qty: 100 3RF cyanocobalamin (vitamin B-12) 100 mcg tablet 100 mcg PO DAILY aspirin 81 mg tablet,delayed release (DR/EC) 81 mg PO DAILY polyethylene glycol 3350 [Miralax] 17 gram Powder In Packet 17 g PO QAM Qty: 5 0RF tramadol 50 mg Tablet 50 mg PO Q4H PRN (Reason: Pain Rated 1-3) Qty: 12 0RF hydrocodone-acetaminophen 7.5-325 mg Tablet 1 tablet PO Q4H PRN (Reason: Pain Rated 7-10) Qty: 12 0RF ondansetron 4 mg Tablet,Disintegrating 4 mg PO Q6H PRN (Reason: Nausea And Vomiting) Qty: 12 0RF alendronate 70 mg tablet 70 mg PO WEEKLY Qty: 13 3RF simvastatin 20 mg tablet See Rx Instructions .ROUTE .COMPLEX Qty: 90 2RF Dose Instruction: Take 1 tablet by mouth once daily Rx Instructions: Take 1 tablet by mouth once daily pantoprazole 40 mg tablet,delayed release (DR/EC) See Rx Instructions .ROUTE .COMPLEX Qty: 90 1RF Dose Instruction: TAKE 1 TABLET BY MOUTH IN THE MORNING Rx Instructions: TAKE 1 TABLET BY MOUTH IN THE MORNING clopidogrel 75 mg tablet See Rx Instructions .ROUTE .COMPLEX Qty: 90 1RF Dose Instruction: Take 1 tablet by mouth once daily Rx Instructions: Take 1 tablet by mouth once daily Follow-up/Referrals: Fernando Slaughter DO [Primary Care Provider] - 1 Week
[2025-01-10] MEDS: SODIUM CHLORIDE 0.9% IV 1,000 ML 999 ML IV CONT (07:47)
[2025-01-10 08:58] VITALS: BP 130/94; PULSE 89; RESP 20; O2SAT 98
[2025-01-10 08:59] VITALS: BP 130/94; BP 150/79; PULSE 86; PULSE 87
[2025-01-10 09:02] VITALS: BP 127/65; PULSE 98
[2025-01-10 09:07] LABS: Add Urine Microscopic? NO; Appearance Urine Clear (Clear); Bilirubin Urine Negative (Negative); Blood Urine Negative (Negative); Color Urine Yellow (Yellow); Glucose Urine UA Negative (Negative); Ketones Urine Negative (Negative); Leukocyte Esterase Ur Negative LEU/UL (Negative); Nitrate Urine Negative (Negative); Protein Urine Negative (Negative); Specific Grav Ur 1.032 (1.001-1.035); Urobilinogen Urine 0.2 mg/dL (<2.0); pH Urine 5.5 (5.0-9.0)
[2025-01-10 10:51] VITALS: BP 149/62; PULSE 85; RESP 21; O2SAT 95
== END 2025-01-10 10:53 | disposition home or self-care (01) ==
PROVIDERS: Student in an Organized Health Care Education/Training Program; Emergency Provider Emergency Medicine; PCP Internal Medicine
DX: E86.0 Dehydration (principal); F03.90 Unspecified dementia, unspecified severity, without behavioral disturbance, psychotic disturbance, mood disturbance, and anxiety; E78.5 Hyperlipidemia, unspecified; J44.9 Chronic obstructive pulmonary disease, unspecified; G62.9 Polyneuropathy, unspecified; K21.9 Gastro-esophageal reflux disease without esophagitis; M81.0 Age-related osteoporosis without current pathological fracture; Z87.891 Personal history of nicotine dependence; N20.0 Calculus of kidney; I45.10 Unspecified right bundle-branch block
CPT/HCPCS: 36415; 71275; 80053; 81003; 85025; 93005; 96360; 99284; J7030; Q9967

== ENCOUNTER 2025-02-09 09:22 | Outpatient (CLI) | payer MEDICARE, SELFPAY ==
--- OUTSIDE RECORDS SUMMARY | 2025-02-09 09:31 | XMS_ITS | Clinical Summary ---
Author Organization [facility] [employer] Address [address] [place] [address] Care Team Providers Care Lottery Office Manager Name Role Phone Gustavo Hsieh DO Primary Care Provider [phone] Source Comments [facility] [employer],non-owned Affiliates and Associated Physician Practices is amultiple site organization consisting of ambulatory clinics and hospital sitesin [place], [place], [place] and [place]. This disclosure is being madepursuant to the Care Everywhere program and may not contain all information available regarding this patient. 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 Gender Identity Not on file Sexual Orientation Not on file Last Filed Vital Signs Vital Sign Reading Time Taken Comments Blood Pressure - - Pulse - - Temperature - - Respiratory Rate - - Oxygen Saturation - - Inhaled Oxygen Concentration - - Weight 66.7 kg (147 lb) 10/05/2020 8:57 AM TRUCK LEASING MANAGER Height 167.6 cm (5' 6) 10/05/2020 8:57 AM TRUCK LEASING MANAGER Body Mass Index 23.73 10/05/2020 8:57 AM TRUCK LEASING MANAGER Plan of Treatment Health Maintenance Due Date Last Done Comments BONE DENSITY TESTING 1940 DTAP/TDAP/TD VACCINES (1 - Tdap) 1959 ZOSTER VACCINE (1 of 2) 1990 Respiratory Syncytial Virus (RSV) Vaccine Pt: or over 60 yrs (1 - 1-dose 75+ series) 2015 PNEUMOCOCCAL VACCINE 50+ (2 of 2 - PPSV23, PCV20, or PCV21) 06/12/2017 04/17/2017 COVID-19 VACCINE ( - season) [...] on file Relation to Subscriber:Not on file Name:OLEKSANDRGIA I Subscriber ID:Not on file (Home) Address: [address] [place], [place] [address] Payer ID:Not on file Group ID:Not on file Type:Self Pay Address: [place], [place] Care Teams Lottery Office Manager Relationship Specialty Start Date End Date Gustavo Hsieh DO [address] [facility] [address] [facility] [address] [place] [address] [facility] - General 11/23/09
--- OUTSIDE RECORDS SUMMARY | 2025-02-09 09:31 | XMS_ITS | Clinical Summary ---
Author Organization [facility] Address [facility] [place] [address] Care Team Providers Care Smoke Jumper Supervisor Name Role Phone Gustavo Hsieh MD Primary Care Provider [phone] Allergies No known active allergies Medications simvastatin 20 MG tablet Take 20 mg by mouth nightly at bedtime. 01/24/2018 Active Active Problems Problem Noted Date Diagnosed Date SIRS (systemic inflammatory response syndrome) ([facility]) 04/09/2018 Pure hypercholesterolemia 04/09/2018 Acute cystitis 04/09/2018 [...] Comments Blood Pressure 111/54 08/27/2023 5:40 PM HONE OPERATOR Pulse 84 08/27/2023 5:40 PM HONE OPERATOR Temperature 36.6 C (97.9 F) 08/27/2023 4:13 AM HONE OPERATOR Respiratory Rate 19 08/27/2023 5:40 PM HONE OPERATOR Oxygen Saturation 95% 08/27/2023 5:45 PM HONE OPERATOR Inhaled Oxygen Concentration - - Weight 55.2 kg (121 lb 11.1 oz) 08/27/2023 4:13 AM HONE OPERATOR Height 167.6 cm (5' 6) 08/27/2023 4:13 AM HONE OPERATOR Body Mass Index 19.64 08/27/2023 4:13 AM HONE OPERATOR Plan of Treatment Health Maintenance Due Date [...] 05/19/2022, 11/28/2021, Additional history exists Pneumococcal Vaccine: 50+ Years Completed 08/01/2023, 04/17/2017 RSV Immunizations Under 20 Months Aged Out No longer eligible based on patient's age to complete this topic Insurance [employer] Advance Directives * Full Code (Latest Code Status on File) Date Activated Date Inactivated Comments 04/09/2018 12:15 PM 04/10/2018 1:22 PM Care Teams Smoke Jumper Supervisor Relationship Specialty Start Date End Date Gustavo Hsieh MD [address] [place] [address] (work) PCP - General INTERNAL MEDICINE 04/09/18
--- OUTSIDE RECORDS SUMMARY | 2025-02-09 09:31 | XMS_ITS | Encounter Summary ---
Author Organization [facility] Address [address] [place] [address] Care Team Providers Care Equity Research Analyst Name Role Phone Gustavo Hsieh DO Primary Care Provider [phone] Encounter Details Date Type Department Care Team (Late st Contact Info) Description 09/28/2020 Telephone [facility] [address] [place] [address] Himanshu Arrington MD [facility] 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 Gender Identity Not on file Sexual Orientation Not on file documented as of this encounter Miscellaneous Notes * Telephone Encounter - Fatmata Jung - 09/28/2020 10:48 AM CST The patient would like to speak to a nurse regarding on going care, can someone reach out to her T TOUR GUIDE documented in this encounter Plan of Treatment Not on file documented as of this encounter Visit Diagnoses Not on filedocumented in this encounter Care Teams Equity Research Analyst Relationship Specialty Start Date End Date Gustavo Hsieh DO [address] [facility] [address] [place] [address] PCP - General 11/23/09 documented as of this encounter
[2025-02-09 09:52] LABS: Hematocrit 31.6 % (37.0-47.0); Hemoglobin 10.5 g/dL (12.0-15.0); Mean Corpuscular HGB Conc 33.2 g/dl (32-36); Mean Corpuscular Hemoglobin 30.3 pg (26-34); Mean Corpuscular Volume 91.3 fl (80-100); Platelet Count Result 399 k/mm3 (150-375); Red Blood Count 3.46 M/mm3 (4.2-5.4); White Blood Count 12.7 K/mm3 (4.5-10.0)
[2025-02-09 10:07] LABS: Alanine Aminotransferase 9 U/L (6-35); Albumin Level 3.6 g/dL (3.5-5.1); Alkaline Phosphatase 61 U/L (38-126); Anion Gap 7 mmol/L (4-12); Aspartate Amino Transferase 23 U/L (14-36); Bilirubin,Total 0.5 mg/dL (0.2-1.3); Blood Urea Nitrogen 14 mg/dL (7-17); Calcium 9.9 mg/dL (8.4-10.2); Carbon Dioxide 24 mmol/L (22-30); Chloride 111 mmol/L (98-107); Cholesterol 176 mg/dL (0-200); Estimated Glomerular Filt Rate 45; Glucose 92 mg/dL (65-110); HDL Direct 52 mg/dL; Potassium 4.0 mmol/L (3.4-5.0); Sodium 142 mmol/L (137-145); Total Protein 6.9 g/dL (6.3-8.2); Triglycerides 147 mg/dL (<150)
[2025-02-09 10:18] LABS: Parathyroid Intact 44.6 pg/mL (14.5-75.2)
[2025-02-09 10:37] LABS: Thyroid Stimulating Hormone 0.834 uIU/mL (0.465-4.680)
[2025-02-09 13:39] LABS: Total Protein Urine Random 13 mg/dL; Ur Ttl Prot Creatinine Ratio 0.14 mg/mg (0-0.20)
== END 2025-02-09 09:23 | disposition home or self-care (01) ==
PROVIDERS: PCP Internal Medicine; Visit Provider Internal Medicine Nephrology
DX: E78.5 Hyperlipidemia, unspecified (principal); N18.31 Chronic kidney disease, stage 3a; R53.83 Other fatigue; Z13.29 Encounter for screening for other suspected endocrine disorder; N04.1 Nephrotic syndrome with focal and segmental glomerular lesions; N05.1 Unspecified nephritic syndrome with focal and segmental glomerular lesions
CPT/HCPCS: 36415; 80053; 80061; 82570; 83970; 84100; 84156; 84443; 85027